=== PATIENT | male | born 1940 | race Two or more races ===

== ENCOUNTER 2018-05-14 06:01 | Inpatient (IN) | payer OTHER ==
[2018-05-14 06:12] VITALS: BMI 21.5
--- NOTE | 2018-05-14 07:06 | PDOC ---
History of Present Illness <Michaela Echeverria - Last Filed: 05/14/18 12:52> - History of Present Illness Initial Comments: 77yo M with PMH of COPD, HTN, HLD, DM presenting with lethargy. Per chart review , patient was brought in by ambulance. It is unknown from where or for what reason. Patient is able to follow simple commands and responds to questions, though his answers are difficult to understand. Not able to obtain history at this time due to patients lethargy. <Sabiha Rg - Last Filed: 05/14/18 19:14> - General Chief Complaint: CVA/TIA Stated Complaint: CHANGE IN MENTAL STATUS Time Seen by Provider: 05/14/18 07:04 NIH Stroke Scale - Last Known Well Date/Time & Onset Date Last Known Well: 05/13/18 Time Last Known Well: 07:00 - Initial Evaluation Level of consciousness: Alert Ask patient the month and their age: Answers one correctly Ask patient to open & close eyes; make fist and let go: Obeys one correctly Best gaze (horizontal eye movement): Normal Visual field testing: No visual field loss Facial paresis (Show teeth/raise eyebrows/close eyes tight): Minor paralysis ( flattened nasolabial fold, asymmetry on smiling) Motor Function: Left Arm: Drift Motor Function: Right Arm: Drift Motor Function: Left Leg: No effort against gravity Motor Function: Right Leg: Drift Limb Ataxia: Present in one limb Sensory(Use pinprick test arms,legs,trunk,face/side to side): Normal Best language (Describe picture, name items, read sentences): No Aphasia Dysarthria (read several words): Near unintelligible or unable to speak Extinction and Inattention: No abnormality - Total Score NIH Stroke Scale Score: 12 <Sabiha Rg - Last Filed: 05/14/18 19:14> Past History <Michaela Echeverria - Last Filed: 05/14/18 12:52> - Past Medical History Cardiac Disorders: Yes COPD: Yes Diabetes: Yes HTN: Yes Hypercholesterolemia: Yes Other medical history: ESRD - Surgical History Cardiac Surgery: Yes (PACEMAKER) - Suicide/Smoking/Psychosocial Hx Smoking History: Unknown if ever smoked <Sabiha Rg - Last Filed: 05/14/18 19:14> - Past Medical History Allergies/Adverse Reactions: Allergies Allergy/AdvReac Type Severity Reaction Status Date / Time iodine Allergy Verified 05/14/18 06:13 Review of Systems - Review of Systems Able to Perform ROS?: No <IfrahSabiha - Last Filed: 05/14/18 19:14> *Physical Exam - Vital Signs Last Vital Signs Temp Pulse Resp BP Pulse Ox 98.6 F 81 15 116/72 100 05/14/18 08:56 05/14/18 09:00 05/14/18 08:56 05/14/18 08:56 05/14/18 09:00 <Michaela Echeverria - Last Filed: 05/14/18 12:52> - Vital Signs Last Vital Signs Temp Pulse Resp BP Pulse Ox 84 18 121/36 L 89 L 05/14/18 06:09 05/14/18 06:09 05/14/18 06:09 05/14/18 06:09 - Physical Exam Comments: General: Awake, alert, and oriented x 2 (not to place) Head: no signs of trauma Eyes: EOMI, sclera anicteric ENT: Dry mucus membranes Neck: Normal ROM, supple Lungs: Lungs clear, Normal breath sounds Cardio: Regular rhythm, S1 and S2 present Abdomen: Soft, nontender. 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 Abnormal speech. Normal coordination, sensation; strength 4/5 in right leg, 2/5 in left leg <IfrahSabiha - Last Filed: 05/14/18 19:14> ED Treatment Course - LABORATORY CBC & Chemistry Diagram: 05/14/18 07:40 05/14/18 07:40 - ADDITIONAL ORDERS Additional order review: Laboratory Results 05/14/18 05/14/18 05/14/18 08:15 08:00 07:40 PT with INR INR Sodium Potassium Chloride Carbon Dioxide Anion Gap BUN Creatinine Creat Clearance w eGFR Random Glucose Lactic Acid 0.7 Calcium Total Bilirubin AST ALT Alkaline Phosphatase Creatine Kinase Troponin I Total Protein Albumin Triglycerides Cholesterol Total LDL Cholesterol HDL Cholesterol Urine Color Sharmila Urine Appearance Slcloudy Urine pH 5.0 Ur Specific [place] 1.015 Urine Protein 2+ H Urine Glucose (UA) Negative Urine Ketones Negative Urine Blood 1+ H Urine Nitrite Negative Urine Bilirubin Negative Urine Urobilinogen Negative Ur Leukocyte Esterase Negative Urine WBC (Auto) None Urine RBC (Auto) 13 Stool Occult Blood Positive Blood Type Antibody Screen 05/14/18 05/14/18 05/14/18 07:40 07:40 07:40 PT with INR 17.50 H INR 1.48 H Sodium 134 L Potassium 5.0 Chloride 96 L Carbon Dioxide 28 Anion Gap 9 BUN 66 H Creatinine 6.5 H Creat Clearance w eGFR 8.40 Random Glucose 102 Lactic Acid Calcium 9.3 Total Bilirubin 0.8 AST 13 L ALT 16 Alkaline Phosphatase 121 H Creatine Kinase 30 Troponin I 0.04 Total Protein 6.7 Albumin 2.7 L Triglycerides 54 Cholesterol 76 Total LDL Cholesterol 32 HDL Cholesterol 48 Urine Color Urine Appearance Urine pH Ur Specific [place] Urine Protein Urine Glucose (UA) Urine Ketones Urine Blood Urine Nitrite Urine Bilirubin Urine Urobilinogen Ur Leukocyte Esterase Urine WBC (Auto) Urine RBC (Auto) Stool Occult Blood Blood Type B POSITIVE Antibody Screen Negative 05/14/18 07:40 RBC 2.60 L MCV 96.5 H MCHC 32.1 RDW 24.1 H MPV 11.1 Neutrophils % 75.5 Lymphocytes % 10.7 Monocytes % 11.4 H Eosinophils % 1.8 Basophils % 0.6 <Michaela Echeverria - Last Filed: 05/14/18 12:52> - LABORATORY CBC & Chemistry Diagram: 05/14/18 07:40 05/14/18 07:40 <Sabiha Rg - Last Filed: 05/14/18 19:14> Medical Decision Making - Medical Decision Making 05/14/18 09:32 Dr. Melissa Wall was paged and notified via phone service. Dr. Melissa Wall was paged for update at 12:52. <Michaela Echeverria - Last Filed: 05/14/18 12:52> - Medical Decision Making 77yo M with PMH of COPD, HTN, HLD, DM presenting with lethargy. -Patient with lethargy vs altered mental status -DDX includes but not limited to hypoglycemia, sepsis, TIA/CVA, brain bleed, electrolyte abnormality -Labs -EKG -Head CT -BGM is 132 05/14/18 08:10 Collateral history provided by son-in-law. Patient had similar presentation in which he was less responsive about four weeks ago. He was brought to [facility] which performed a workup which was negative. Patient was dialyzed, improved, and was discharged. Since that time, patient was in dialysis when he went into cardiac arrest. He was sent again to [facility] and was found to have left sided weakness but MRI was not performed due to his pacemaker. Patient improved, however, had been unable to ambulate. Was sent to [facility] yesterday. Son-in-law reports that patient was appropriately interactive and appeared to be at his baseline with the exception of his inability to ambulate. Today, the patient was [facility] for less responsiveness. NIHSS is [address] does not show acute pathology EKG, rate 82, QTc 509, paced rhythm WBC=5.9, Hgb 8.1, FOBT positive Spoke with Dr. Wall who accepted patient for admission. Patient observed with low O2 saturation when removing the non-rebreather mask. Suspicion for PE as patient has had previous clots. However, patient has sensitivity to IV contrast. Dr. Milian discussed with Dr. Wall the option for V/Q scan versus premedicating for CTA with contrast. <Sabiha Rg - Last Filed: 05/14/18 19:14> *DC/Admit/Observation/Transfer <Michaela Echeverria - Last Filed: 05/14/18 12:52> - Discharge Dispostion Decision to Admit order: Yes <Sabiha Rg - Last Filed: 05/14/18 19:14> Diagnosis at time of Disposition: Altered mental status - Discharge Dispostion Condition at time of disposition: Guarded
[2018-05-14] MEDS ORDERED: SODIUM CHLORIDE 1,000 ML IV SCH (07:15)
[2018-05-14 08:02] LABS: BASO % 0.6 % (0-2.0); EOS % 1.8 % (0-4.5); HEMATOCRIT 25.1 % (35.4-49); HEMOGLOBIN 8.1 GM/dL (11.7-16.9); LYMPH % 10.7 % (8-40); MCH 30.9 pg (25.7-33.7); MCHC 32.1 g/dl (32.0-35.9); MEAN CELL VOLUME 96.5 fl (80-96); MEAN PLT VOLUME 11.1 fl (7.5-11.1); MONO % 11.4 % (3.8-10.2); NEUT % 75.5 % (42.8-82.8); PLATELET COUNT 137 K/MM3 (134-434); RDW 24.1 % (11.9-15.9); WHITE BLOOD COUNT 5.9 K/mm3 (4.0-10.0)
[2018-05-14 08:24] LABS: ALBUMIN 2.7 g/dl (3.4-5.0); ALK PHOS 121 U/L (45-117); ANION GAP 9 MMOL/L (8-16); BILIRUBIN,TOTAL 0.8 mg/dL (0.2-1); BLOOD UREA NITROGEN 66 mg/dL (7-18); CALCIUM 9.3 mg/dL (8.5-10.1); CHLORIDE 96 mmol/L (98-107); CHOLESTEROL 76 mg/dL (50-200); CO2 28 mmol/L (21-32); CREATININE 6.5 mg/dL (0.55-1.3); GLUCOSE,RANDOM 102 mg/dL (74-106); HDL CHOLESTEROL 48 mg/dL (40-60); SGOT/AST 13 U/L (15-37); SGPT/ALT 16 U/L (13-61); SODIUM 134 mmol/L (136-145); TOT PROT 6.7 g/dl (6.4-8.2); TRIGLYCERIDES 54 mg/dL (0-150)
[2018-05-14 08:30] LABS: INR 1.48 (0.83-1.09); PROTHROMBIN TIME (PATIENT) 17.5 SEC (9.7-13.0)
[2018-05-14 08:32] LABS: URINE APPEARANCE SLCLOUDY; URINE BILIRUBIN NEGATIVE (<2.0 mg/dL); URINE COLOR AMBER; URINE GLUCOSE (UA) NEGATIVE (NEGATIVE); URINE KETONE NEGATIVE (NEGATIVE); URINE LEUK ESTERASE NEGATIVE (NEGATIVE); URINE NITRITE NEGATIVE (NEGATIVE); URINE PROTEIN 2+ (NEGATIVE); URINE UROBILINOGEN NEGATIVE mg/dL (0.2-1.0)
--- NOTE | 2018-05-14 09:21 | EKG ---
Test Reason : Blood Pressure : / mmHG Vent. Rate : 082 BPM Atrial Rate : 082 BPM P-R Int : 256 ms QRS Dur : 180 ms QT Int : 436 ms P-R-T Axes : 047 -71 101 degrees QTc Int : 509 ms Atrial-sensed ventricular-paced rhythm with prolonged AV conduction ABNORMAL ECG NO PREVIOUS ECGS AVAILABLE Confirmed by JULIO DOMINGUEZ, ALTAF ([id number]) on 05/14/2018 9:21:12 AM Referred By: Confirmed By:ALTAF KIM MD
--- NOTE | 2018-05-14 10:13 | HP ---
Admitting History and Physical - Primary Care Physician PCP: Lynn Wall - Admission Chief Complaint: AMS History of Present Illness: History from ER resident and pt's son in law- Pt is in the ER , ventimask- sat 100% Pt was sent from [facility] this AM for lethargy He was just admitted to [facility] last night from [facility] in [place]--Diagnosis- CHF decompensation , SRD on HD As per son in law, pt has had about 2 recurrent admissions to the hospital for AMS- 5 weeks ago while in outpt dialysis, he lost consciousness and sent to ER - went into cardiac arrest - rescuscitated and was intubated, later extubated - discharged to [facility] in [place] , but had to be readmitted to the same hospital for SOB - this time had CHF decompensation , became decompensated and dc to [facility] . As per son in law-- PPM was interogated there in [facility] . He had CT scans which were negative though pt has a residual left sided weakness, could not do MRI as pt has a PPM . Pt examined in ER- he is speaking but not making much sense- he is usually AAO x 2 History Source: Family Member, Medical Record Limitations to Obtaining History: Physical Impairment - Past Medical History Cardiovascular: Yes: CAD, CHF, HTN, Other (CABG, PPM) Pulmonary: Yes: COPD Renal/: Yes: Renal Failure (ESRD on HD) - Smoking History Smoking history: Unknown if ever smoked Home Medications - Allergies Allergies/Adverse Reactions: Allergies Allergy/AdvReac Type Severity Reaction Status Date / Time iodine Allergy Hives Verified 05/15/18 13:08 - Home Medications Home Medications: Ambulatory Orders Albuterol 2.5/Ipratropium 0.5 [Duoneb -] 1 amp NEB PRN 05/15/18 Amlodipine Besylate 5 mg PO DAILY 05/15/18 Aspirin [ASA -] 81 mg PO DAILY 05/15/18 B Complex with Vitamin C [B-Complex Plus Vitamin C] 1 each PO DAILY 05/15/18 Calcitriol [Rocaltrol -] 0.25 mcg PO DAILY 05/15/18 Carvedilol [Coreg] 6.25 mg PO 05/15/18 Clopidogrel Bisulfate [Plavix] 75 mg PO 05/15/18 Darbepoetin Edin [Aranesp] 100 mcg SQ WEEKLY 05/15/18 Folic Acid 1 mg PO DAILY 05/15/18 Furosemide 100 mg PO BID 05/15/18 Guaifenesin 100 mg PO Q6H PRN 05/15/18 Insulin Glargine,Hum.rec.anlog [Lantus] 10 unit SQ HS 05/15/18 Insulin Lispro [Humalog] 3 unit SQ TIDCM 05/15/18 Isosorbide Mononitrate [Isosorbide Mononitrate ER] 30 mg PO 05/15/18 Pregabalin [Lyrica -] 100 mg PO 05/15/18 Ranolazine [Ranexa] 500 mg PO BID 05/15/18 Sevelamer Carbonate [Renvela] 800 mg PO 05/15/18 Simvastatin [Zocor -] 10 mg PO 05/15/18 Review of Systems Unable to obtain ROS, reason: drowsy Physical Examination Vital Signs: Vital Signs Temperature 98.6 F 05/14/18 08:56 Pulse Rate 81 05/14/18 09:00 Respiratory Rate 15 05/14/18 08:56 Blood Pressure 116/72 05/14/18 08:56 O2 Sat by Pulse Oximetry (%) 100 05/14/18 09:00 Constitutional: Yes: No Distress, Calm Cardiovascular: Yes: Regular Rate and Rhythm, Murmur Respiratory: Yes: Diminished Gastrointestinal: Yes: Normal Bowel Sounds, Soft. No: Tenderness Extremities: Yes: Other (skin tear left dorsum of foot, right foot- first 2 toes TMA) Edema: No Labs: CBC, BMP 05/14/18 07:40 05/14/18 07:40 Imaging - Results Chest X-ray: Image Reviewed (no congestion) Cat Scan: Report Reviewed (CT head negative) EKG: Image Reviewed (paced) Problem List - Problems (1) Hypoxia Code(s): R09.02 - HYPOXEMIA (2) ESRD (end stage renal disease) on dialysis Code(s): N18.6 - END STAGE RENAL DISEASE; Z99.2 - DEPENDENCE ON RENAL DIALYSIS (3) Altered mental status Code(s): R41.82 - ALTERED MENTAL STATUS, UNSPECIFIED Assessment/Plan PLAN Keep NPO Spoke with ER resident and attending-- will do CT chest - r/o PE will need dialysis afterwards Lactic acid normal apparently was on iv antibiotics on the previous hospital empirically renal and Neurology eval on NRB prognosis guarded ?seizure disorder ? PE ?infectious cause -- cultures drawn, no clear source
--- NOTE | 2018-05-14 11:13 | PDOC ---
Attending Attestation - Resident Resident Name: IfrahCatherineSabiha - ED Attending Attestation I have performed the following: I have examined & evaluated the patient, The case was reviewed & discussed with the resident, I agree w/resident's findings & plan, Exceptions are as noted - HPI HPI: 05/14/18 12:35 77 years old past medical history significant for end-stage renal disease on dialysis Friday COPD hypertension hyperlipidemia diabetes presents from [facility]. Patient has had a very complicated last 4 week. He was initially reported to [facility] for weakness after dialysis, symptoms seemed to improve he then began experiencing weakness again return to the hospital suffered a cardiac arrest, after becoming unresponsive at dialysis 2weeks later, had a 25 minute resuscitation. During this hospitalization he had left-sided weakness which has waxed and waned but has been present. CT was normal was unable to have an MRI performed secondary to pacemaker. He has been unable to walk over the last 4 weeks He was transferred yesterday [facility] for rehabilitation he was conversing yesterday with family week again on the left side which is not completely different than his new baseline over the last 4 weeks. - Physicial Exam PE: 05/14/18 12:39 Vitals: Triage Vital signs reviewed General Appearance: no acute distress, well nourished well developed, Head: Atraumatic, Eyes: Pupils equal reactive round, extraocular movement intact Lungs: Clear to auscultation bilateral, good air movement bilaterally, Abdomen: Soft, non distended, normal bowel sounds, non tender to palpation Extremities: Full range of motion to all extremities, no cyanosis, clubbing, or edema Skin: Ulcer to top of left foot Neuro: Responsd to questions, left arm 4/5, left leg 2/5. Psych: normal mood, normal affect - Medical Decision Making 05/14/18 12:[address] EKG all within normal limits Son-in-law at bedside this episode seems to be the exact same episode the patient has had twice in the last 4 weeks. No clear etiology at this point Given the patient is not his baseline mental status we'll admit to medicine for neurology and renal consultation and to arrange dialysis. Very low concern for infectious etiology given no fever no elevated white blood cell count Blood gas with evidence of hypoxemia, patient does desat when off O2. Chest x- ray with no acute pathology not wheezing at this time at this time given patient 's comorbidities PE is on the differential Patient does have a mild to moderate contrast ALLERGY has experienced wheezing in the past per the daughter. He has been able to obtain a CTA CT scans of his chest with premedication This is discussed with the admitting attending Dr. Engel. I have ordered a CTA and the first dose of by mouth prednisone for the overnight premedication process.
[2018-05-14 11:18] LABS: ARTERIAL BLD GAS O2 SATURATION 88.4 % (90-98.9); ARTERIAL BLOOD GAS BASE EXCESS 2.5 meq/l (-2-2); ARTERIAL BLOOD GAS PCO2 52.2 mmHg (35-45); ARTERIAL BLOOD GAS PO2 60.4 mmHg (70-100); ARTERIAL BLOOD GAS pH 7.35 (7.35-7.45)
[2018-05-14 11:19] LABS: CARBOXYHEMOGLOBIN 2.8 gm% (0.5-2.0)
[2018-05-14 11:24] LABS: ANISOCYTOSIS 3+; MACROCYTOSIS 2+; PLATELET ESTIMATE DECREASED
[2018-05-14] MEDS ORDERED: ALBUTEROL SO4 0.083% IH SOL 2.5 MG/3 ML VIAL.NEB. NEB PRN (12:34)
--- NOTE | 2018-05-14 15:44 | CONSULT ---
Consult Consult Specialty:: Nephrology Reason for Consultation:: ESRD - History of Present Illness Chief Complaint: lethargy History of Present Illness: Pt is a 77 year old male with pmhx of ESRD, CHF, cardiac arrest, CAD, CABG and PPM [facility]. He was sent to [facility] from [facility]. He did not get any HD in [facility] as he was sent to the hospital today. Pt is lethargic and unable to give history. I reviewed the chart and spoke to the medical attending. He has had several admissions for change in mental status. He has residual left sided weakness. - History Source History Provided By: Medical Record - Past Medical History Cardio/Vascular: Yes: CAD, CHF, HTN, Other (CABG, PPM) Pulmonary: Yes: COPD Renal/: Yes: Renal Failure (ESRD on HD), Hemodialysis - Smoking History Smoking history: Unknown if ever smoked Home Medications - Allergies Allergies/Adverse Reactions: Allergies Allergy/AdvReac Type Severity Reaction Status Date / Time iodine Allergy Verified 05/14/18 06:13 Family Disease History - Family Disease History Family History: Unable to Obtain Review of Systems Unable to obtain ROS, reason: pt lethargic Physical Exam Vital Signs: Vital Signs Temperature 98.6 F 05/14/18 08:56 Pulse Rate 78 05/14/18 14:07 Respiratory Rate 16 05/14/18 14:07 Blood Pressure 138/67 05/14/18 14:07 O2 Sat by Pulse Oximetry (%) 100 05/14/18 14:07 Constitutional: Yes: Calm Eyes: Yes: Conjunctiva Clear HENT: Yes: Atraumatic Cardiovascular: Yes: JVD, S1, S2 Respiratory: Yes: On Venti-Mask Gastrointestinal: Yes: Soft Renal/: Yes: Incontinence Musculoskeletal: Yes: Muscle Weakness Edema: No Neurological: Yes: Lethargy Labs: CBC, BMP 05/14/18 07:40 05/14/18 07:40 Imaging - Results Chest X-ray: Report Reviewed Cat Scan: Report Reviewed Problem List - Problems (1) Altered mental status Code(s): R41.82 - ALTERED MENTAL STATUS, UNSPECIFIED (2) ESRD (end stage renal disease) on dialysis Code(s): N18.6 - END STAGE RENAL DISEASE; Z99.2 - DEPENDENCE ON RENAL DIALYSIS Assessment/Plan Current Medications Generic Name Dose Route Start Last Admin Trade Name Freq PRN Reason Stop Dose Admin Albuterol Sulfate 1 amp 05/14/18 12:34 Ventolin 0.083% Nebulizer Soln - NEB Q4H PRN SHORT OF BREATH/WHEEZING Sodium Chloride 1,000 mls @ 42 mls/hr 05/14/18 07:15 05/14/18 08:23 Normal Saline - IV 42 mls/hr ASDIR KAVON Administration Prednisone 50 mg 05/15/18 13:11 Deltasone - PO 05/15/18 13:12 ONCE ONE Prednisone 50 mg 05/15/18 10:00 Deltasone - PO DAILY KAVON Impression 1. ESRD 2. hypoxia 3. CAD 4. hx of cardiac arrest 5. lethargy 6. DM 7. HLD 8. anemia Plan - will arrange for HD today - monitor pulse ox - d/s saline - discussed with medical team - monitor mental status with HD - monitor BP - will follow Dr Toth
[2018-05-14] MEDS ORDERED: SODIUM CHLORIDE 250 ML IV PRN (15:48)
[2018-05-14] MEDS: ALBUMIN HUMAN 25% 12.5 GM/50 ML VIAL IVPB SCH ×4 (17:00→18:30)
[2018-05-15 07:11] LABS: HEMATOCRIT 24.5 % (35.4-49); HEMOGLOBIN 7.6 GM/dL (11.7-16.9); MCH 30.1 pg (25.7-33.7); MEAN PLT VOLUME 10.5 fl (7.5-11.1); PLATELET COUNT 111 K/MM3 (134-434); RBC 2.52 M/mm3 (4.00-5.60); RDW 24.5 % (11.9-15.9); WHITE BLOOD COUNT 5.5 K/mm3 (4.0-10.0)
[2018-05-15 08:11] LABS: ALBUMIN 2.5 g/dl (3.4-5.0); ALK PHOS 96 U/L (45-117); ANION GAP 10 MMOL/L (8-16); BILIRUBIN,TOTAL 0.9 mg/dL (0.2-1); BLOOD UREA NITROGEN 41 mg/dL (7-18); CALCIUM 8.8 mg/dL (8.5-10.1); CHLORIDE 99 mmol/L (98-107); CO2 29 mmol/L (21-32); CREATININE 4.2 mg/dL (0.55-1.3); GLUCOSE,RANDOM 131 mg/dL (74-106); POTASSIUM 4.3 mmol/L (3.5-5.1); SGOT/AST 13 U/L (15-37); SGPT/ALT 15 U/L (13-61); SODIUM 139 mmol/L (136-145); TOT PROT 6.3 g/dl (6.4-8.2)
[2018-05-15] MEDS: predniSONE 20 MG TABLET (UD) PO SCH (09:57)
--- NOTE | 2018-05-15 11:33 | PN ---
Progress Note (short form) - Note Progress Note: pt seen/ examined chart reviewed family at bedside son in law/ Extensive talk with them pt awake/ comfortable denies cp. on vm chronic ill appearance Vital Signs Temp 98.2 F 05/15/18 05:55 Pulse 97 H 05/15/18 05:55 Resp 18 05/15/18 05:55 BP 127/67 05/15/18 06:00 Pulse Ox 95 05/14/18 21:00 Intake & Output 05/14/18 05/14/18 05/15/18 11:59 23:59 11:59 Weight 150 lb 150 lb Other: Voiding Method Toilet Diaper # Unmeasured Voids Void 1 Height 5 ft 10 in 5 ft 10 in Body Mass Index (BMI) 21.5 21.5 Weight Measurement Method Estimated by Staff Weight Measurement Method Estimated by Staff Active Medications Albuterol Sulfate (Ventolin 0.083% Nebulizer Soln -) 1 amp NEB Q4H PRN PRN Reason: SHORT OF BREATH/WHEEZING Prednisone (Deltasone -) 50 mg PO ONCE ONE Stop: 05/15/18 13:12 Prednisone (Deltasone -) 50 mg PO DAILY KAVON Last Admin: 05/15/18 09:57 Dose: Not Given CBC, BMP 05/15/18 05:55 05/15/18 05:55 ct head -- noted cta- pending Physical Exam. Awake/ Lethargic neck- supple Lungs- crackles at bases cvs- s1, s2 rrr abd - soft ext- No edema neuro- awake rue - weakness-- chronic as per family a/p sob. cad-- s/p cardiac arrest esrd Pneumona ? Sepsis-- No cultures send Doubt pe stool -- occult blood + Anemia Continue present care abx blood cultures pulmonary/ cardiolgoy / gi consults requested swallowing eval pt was eating puree / dysphagia diet at [facility] - as per family and before was ok I have still no list of meds pt takes -- Calling [facility] - called myself also and called few times by nursing staff to get list will follow overall condition critical cc time 35 min
--- NOTE | 2018-05-15 12:04 | CONSULT ---
Admitting History and Physical - Primary Care Physician PCP: Francheska Granados - Admission History of Present Illness: Per EMR: History from ER resident and pt's son in law- Pt is in the ER , ventimask- sat 100% Pt was sent from [facility] this AM for lethargy He was just admitted to [facility] last night from [facility] in [place]--Diagnosis- CHF decompensation , SRD on HD As per son in law, pt has had about 2 recurrent admissions to the hospital for AMS- 5 weeks ago while in outpt dialysis, he lost consciousness and sent to ER - went into cardiac arrest - rescuscitated and was intubated, later extubated - discharged to [facility] in [place] , but had to be readmitted to the same hospital for SOB - this time had CHF decompensation , became decompensated and dc to [facility] . As per son in law-- PPM was interogated there in [facility] . He had CT scans which were negative though pt has a residual left sided weakness, could not do MRI as pt has a PPM . Pt was on puree/nectar thick recently at [facility]. History Source: Family Member (info from staff who spoke with pt's son-in-law), Medical Record - Past Medical History Cardiovascular: Yes: CAD, CHF, HTN, Other (CABG, PPM) Pulmonary: Yes: COPD Renal/: Yes: Renal Failure (ESRD on HD), Hemodialysis - Smoking History Smoking history: Unknown if ever smoked History - Admission Reason For Visit: ALTERED MENTAL STATUS - Diagnostics X-ray: Report Reviewed CT Scan: Report Reviewed - General Mental Status: Awake and Alert (Thinks he is in [place]. Unable to retain orientation after 2 min with distraction.), Able to Follow Commands, Forgetful , Vague Attention: Intact Ability to Follow Directions: Fair (Benefits from repetition) Head/Neck Control: Fair - Hearing Hearing: Functional (impaired? Benefits from repetition) Speech Evaluation - Communication Primary Language: INDONESIAN Communication: Yes: Simple Responses - Speech Production Able to Make Needs Known: Yes: WNL Intelligibility: Yes: Mildly Impaired - Speech Characteristics Voice Loudness: Mildly Soft/Quiet Voice Pitch: Yes: Normal Voice Phonatory-based Quality: Yes: Normal Speech Clarity: < 100% Nasal Resonance: Normal Articulation: Yes: Precise - Language/Auditory Comprehension Follows: Yes: 1 Stage Simple Commands Observation: Yes/No Confusion: Yes (sometimes.[place]? Benefits from repetition), Benefits from Slow Speech: Yes, Benefits from Repetiton: Yes, Benefits from Increased Volume of Speech: Yes - Language/Verbal Expression Able to Respond to Simple Queries: Yes: Mildly Impaired Able to Communicate Wants and Needs: Yes: WNL Functional Communication Status: Yes: Mildly Impaired - Swallow Evaluation/Bedside Assessment Current Nutritional Intake: NPO Oral Secretions: Yes: WFL Facial Symmetry on Retraction: Symmetrical Facial Movement: Controlled Against Resistance Opening: Normal Against Resistance Closing: Normal Pucker Lips: Normal Lingual Movement: Normal, Symmetric Lingual Speed of Movement: Normal Lingual Movement Strgth Against Opposition: Normal Lingual Movement Characteristics: Normal Velopharyngeal Movement: Normal Laryngeal Movement: Able to Palpate, Labored,delay initiation Rate of Intake: WFL Bolus Size: Small Labial Seal: WFL Oral Prep Time: Increased A-P Transit: WFL Pocketing: None Timing of Swallow: Delayed Coughing/Throat Clear: No Change in Voice: No Recommendations - Speech Evaluation, Impression/Plan Impression: Delayed swallow onset but fairly brisk swallow once triggered. Possible cristine-pharyngeal dyscoordination with aspiration risk. Forgetful but verbal. Desaturation to 76 with O2 VM off for a few minutes. - Disposition Discharge to: [facility] - Dysphagia Impressions/Plan Dysphagia Impressions: Mild Impairment, Risk of Aspiration, Ongoing Evaluation *Silent aspiration: cannot be R/O at bedside Dysphagia Treatment Plan: Small Bites, Chin Tuck/Down, Clear Pocket Food, Trial Feedings, Safe Rate, 1/2 tsp. at a time, Elevate HOB during feed Recommendations: Modified Barium Swallow (if difficulty observed. Possibly mbs next week-I suspect diet can be upgraded as pt improves.) - Recommendations Diet Consistency: Dysphagia Pureed Medication Administration: Crushed with applesauce Liquids: [place] Thick Supplement: Magic Cup, Ensure Pudding
[2018-05-15] MEDS ORDERED: PANTOPRAZOLE SODIUM 40 MG VIAL IVPUSH SCH (12:15)
[2018-05-15] MEDS ORDERED: predniSONE 20 MG TABLET (UD) PO ONE ×2 (13:11→19:00)
--- NOTE | 2018-05-15 13:40 | CON.GI ---
Consult Consult Specialty:: GI Referred by:: Shawn Granados Reason for Consultation:: Anemia - History of Present Illness Chief Complaint: Anemia / guaiac positive stool History of Present Illness: 77M admitted to [facility] last night from [facility] in [place]-- Diagnosis- CHF decompensation, on HD. Per the schart, as the patient does no give an accurate history of his current medical condition, patient has had about 2 recurrent admissions for AMS - 5 weeks ago while in outpt dialysis, he lost consciousness and sent to ER -went into cardiac arrest - rescuscitated and was intubated, later extubated - discharged to [facility] in [place] , but had to be readmitted to the same hospital for SOB - this time had CHF decompensation , became decompensated. He was D/C'd to [facility]. His medication list lists asa and plavix. It does not appear that he receives GI prophylaxis. Also per the chart. As per the H&P, the patient's PPM was interogated at [facility] . He had CT scans which were negative though pt has a residual left sided weakness, could not do MRI as pt has a PPM . He has a macrocytosis, thrombocytopenia, coagulopathy. He denies a history of chronic liver disease. - Past Medical History Cardio/Vascular: Yes: CAD, CHF, HTN, Mitral Insufficiency, Other (CABG, PPM) Pulmonary: Yes: COPD Renal/: Yes: Renal Failure (ESRD on HD), Hemodialysis - Past Surgical History Past Surgical History: Yes: Amputation (right toe amputations), AV Fistula/ Graft (x 2. left arm non-functional), CABG, Permanent Pacemaker, Valve Replacement (TAVR) - Alcohol/Substance Use Hx Alcohol Use: Yes (social) History of Substance Use: reports: None - Smoking History Smoking history: Unknown if ever smoked - Social History Usual Living Arrangement: Fdc ADL: Support Services Place of : Other ([facility]) Home Medications - Allergies Allergies/Adverse Reactions: Allergies Allergy/AdvReac Type Severity Reaction Status Date / Time iodine Allergy Hives Verified 05/15/18 13:08 - Home Medications Home Medications: Ambulatory Orders Albuterol 2.5/Ipratropium 0.5 [Duoneb -] 1 amp NEB PRN 05/15/18 Amlodipine Besylate 5 mg PO DAILY 05/15/18 Aspirin [ASA -] 81 mg PO DAILY 05/15/18 B Complex with Vitamin C [B-Complex Plus Vitamin C] 1 each PO DAILY 05/15/18 Calcitriol [Rocaltrol -] 0.25 mcg PO DAILY 05/15/18 Carvedilol [Coreg] 6.25 mg PO 05/15/18 Clopidogrel Bisulfate [Plavix] 75 mg PO 05/15/18 Darbepoetin Edin [Aranesp] 100 mcg SQ WEEKLY 05/15/18 Folic Acid 1 mg PO DAILY 05/15/18 Furosemide 100 mg PO BID 05/15/18 Guaifenesin 100 mg PO Q6H PRN 05/15/18 Insulin Glargine,Hum.rec.anlog [Lantus] 10 unit SQ HS 05/15/18 Insulin Lispro [Humalog] 3 unit SQ TIDCM 05/15/18 Isosorbide Mononitrate [Isosorbide Mononitrate ER] 30 mg PO 05/15/18 Pregabalin [Lyrica -] 100 mg PO 05/15/18 Ranolazine [Ranexa] 500 mg PO BID 05/15/18 Sevelamer Carbonate [Renvela] 800 mg PO 05/15/18 Simvastatin [Zocor -] 10 mg PO 05/15/18 Family Disease History - Family Disease History Family History: Unable to Obtain Review of Systems - Review of Systems Neurological: reports: Confusion Physical Exam-GI Vital Signs: Vital Signs Temperature 99.5 Rectal F 05/15/18 13:31 Pulse Rate 97 H 05/15/18 05:55 Respiratory Rate 18 05/15/18 05:55 Blood Pressure 127/67 05/15/18 06:00 O2 Sat by Pulse Oximetry (%) 80% on RA 05/15/18 09:00 Eyes: No: Sclera Icterus Cardiovascular: Yes: Tachycardia, Murmur (+ 2/6 systolic murmur at thr RSB>LSB) Respiratory: Yes: Rhonchi (throughout lung guerrero bilaterally) Gastrointestinal Inspection: Yes: Other (ecchymoses, lower anterior abdominal wall). No: Distention ...Auscultate: Yes: Normoactive Bowel Sounds ...Palpate: No: Hepatomegaly, Splenomegaly, Tenderness ...Percussion: No: Tympanitic ...Rectal Exam: Yes: Other (Copious soft dark brown stool in the rectal vault, unable to be manually disimpacted duode to fecal consistency.) Edema: Yes Neurological: Yes: Alert (Awake, following commands) Labs: CBC, BMP 05/15/18 05:55 05/15/18 05:55 INR, PTT INR 1.48 (0.83-1.09) H 05/14/18 07:40 Hepatic Panel Total Bilirubin 0.9 mg/dL (0.2-1) 05/15/18 05:55 AST 13 U/L (15-37) L 05/15/18 05:55 ALT 15 U/L (13-61) 05/15/18 05:55 Alkaline Phosphatase 96 U/L (45-117) 05/15/18 05:55 Albumin 2.5 g/dl (3.4-5.0) L 05/15/18 05:55 Problem List - Problems (1) Anemia Assessment/Plan: Macrocytic anemia with multiple other comorbidities and [facility] Maintained on ASA/Plavix Currently being ruled out for PE Had discussion with His daughter Lilly. Discussed anemia. She explains that he received blood transfusions at [facility] [place] preiviously. Discussed findings of microscopic blood in stool. Discussed that when medically cleared, EGD and colonoscopy could be undertaken to evaluate intraluminal source of bleeding. We discussed potential risks of the procedures like but not limited to bleeding , perforation requiring surgery to repair, infection, sedation medication effects all of which could be potentially life threatening. She would think about these options and for now and defer endoscopic interventions for overt life threatening bleeding. We also dicsussed CT scan of the A/P with IV contrast to assess for changes c/w cirrhosis. PPI therapy ? if need for continiued dual antipletelet therapy necessary Monitor H/H and for signs of active GI bleeding. Code(s): D64.9 - ANEMIA, UNSPECIFIED
--- NOTE | 2018-05-15 13:46 | PN ---
Progress Note (short form) - Note Progress Note: PULMONARY CONSULTATION DICTATED 05/15/18 IMP ACUTE HYPOXEMIC/HYPERCAPNEIC RESPIRATORY FAILURE CHF ? PNEUMONIA ALTERED MENTAL STATUS ESRD ON HD H/O CARDIAC ARREST H/O COPD ASHD S/P CABG,S/P PPM HTN S/P TAVR PLAN O2 TO MAINTAIN O2 SAT >92% HD PER RENAL NIPPV IF PT DEVELOPES INCREASED RESPIRATORY DISTRESS/LETHARGY ABX CULTURES F/U CHEST X-RAYS CHEST CTA DR CRESPO Problem List - Problems (1) Altered mental status Code(s): R41.82 - ALTERED MENTAL STATUS, UNSPECIFIED (2) ESRD (end stage renal disease) on dialysis Code(s): N18.6 - END STAGE RENAL DISEASE; Z99.2 - DEPENDENCE ON RENAL DIALYSIS (3) ASHD (arteriosclerotic heart disease) Code(s): I25.10 - ATHSCL HEART DISEASE OF [place] CORONARY ARTERY W/O ANG PCTRS (4) Hypoxia Code(s): R09.02 - HYPOXEMIA (5) Hx of CABG Code(s): Z95.1 - PRESENCE OF AORTOCORONARY BYPASS GRAFT (6) Acute respiratory failure with hypoxia and hypercapnia Code(s): J96.01 - ACUTE RESPIRATORY FAILURE WITH HYPOXIA; J96.02 - ACUTE RESPIRATORY FAILURE WITH HYPERCAPNIA
--- NOTE | 2018-05-15 13:48 | ECHO ---
Name: MAURI RICKY Exam:Adult Echocardiogram Study Date: 05/15/2018 12:34 PM Age: 77 yrs Reason For Study: SOB Height: 70 in Weight: 150 lb BSA: 1.8 m2 MMode/2D Measurements & Calculations IVSd: 1.2 cm Ao root diam: 2.5 cm LVIDd: 4.3 cm LA dimension: 4.7 cm LVIDs: 2.8 cm LVPWd: 0.82 cm IVSs: 1.6 cm LVPWs: 1.2 cm EDV(Teich): 83.0 ml ESV(Teich): 28.8 ml LVOT diam: 1.9 cm Doppler Measurements & Calculations MV P1/2t max oswaldo: 266.0 cm/sec MVA(VTI): 0.92 cm2 MV P1/2t: 68.1 msec MV V2 max: 266.3 cm/sec MV max P.4 mmHg MVA(P1/2t): 3.2 cm2 MV V2 mean: 155.7 cm/sec MV dec slope: 1145 cm/sec2 MV mean P.2 mmHg MV V2 VTI: 46.4 cm Ao V2 max: 194.4 cm/sec LV V1 max P.6 mmHg Ao max P.1 mmHg LV V1 mean P.7 mmHg Ao V2 mean: 140.0 cm/sec LV V1 max: 80.5 cm/sec Ao mean P.6 mmHg LV V1 mean: 58.7 cm/sec Ao V2 VTI: 35.6 cm LV V1 VTI: 15.1 cm SETH(I,D): 1.2 cm2 SETH(V,D): 1.2 cm2 MR max oswaldo: 506.6 cm/sec SV(LVOT): 42.9 ml MR max P.8 mmHg TR max oswaldo: 319.6 cm/sec PI end-d oswaldo: 126.2 cm/sec TR max P.1 mmHg Left Ventricle Left ventricular systolic function is moderately reduced. Ejection Fraction = 35-40%. Septal motion i s consistent with conduction abnormality. There is apical septal wall severe hypokinesis. Right Ventricle The right ventricle is grossly normal size. The right ventricular systolic function is grossly normal . Atria The left atrium is moderately dilated. Mitral Valve Cannot exclude prior mitral valve repair/ring. There is moderate to severe mitral valve thickening. T here is moderate to severe mitral annular calcification. Calcified mitral apparatus. There is severe mitral s tenosis. There is mild mitral regurgitation. Tricuspid Valve The tricuspid valve is normal in structure and function. There is mild tricuspid regurgitation. Right ventricular systolic pressure is elevated at 30-40mmHg. Aortic Valve The aortic valve is not well visualized. No aortic regurgitation is present. Pulmonic Valve The pulmonic valve is not well seen, but is grossly normal. There is no pulmonic valvular stenosis. M ild pulmonic valvular regurgitation. Great Vessels The aortic root is normal size. Pericardium/Pleura There is no pericardial effusion. Interpretation Summary Septal motion is consistent with conduction abnormality. There is apical septal wall severe hypokinesis. Left ventricular systolic function is moderately reduced. Ejection Fraction = 35-40%. The left atrium is moderately dilated. Cannot exclude prior mitral valve repair/ring. There is moderate to severe mitral valve thickening. There is moderate to severe mitral annular calcification. Calcified mitral apparatus. There is mild mitral regurgitation. There is severe mitral stenosis. There is mild tricuspid regurgitation. Right ventricular systolic pressure is elevated at 30-40mmHg. The aortic valve is not well visualized. Mild pulmonic valvular regurgitation. There is no pericardial effusion. MD Mathew *Silva 05/15/2018 01:48 PM
--- NOTE | 2018-05-15 14:18 | CONS ---
DATE OF CONSULTATION: 05/15/2018 REFERRING PHYSICIAN: Francheska Granados MD The patient is a 77-year-old male with past medical history of end-stage renal disease on hemodialysis, COPD, hypertension, hyperlipidemia, diabetes, history of cardiac arrest, status post permanent pacemaker,s/p TAVR, transferred from [facility] secondary to increasing lethargy. Apparently while at [facility] he did not receive any hemodialysis. Patient on admission was noted to be lethargic. He was also noted to be hypoxic with blood gas revealing acute hypoxemic, hypercapnic respiratory failure. He underwent dialysis on admission. The patient has remained hypoxic on room air, requiring O2 via Ventimask. Patient is a nonsmoker. He denies any history of occupational exposures. Patient apparently has been very ill for the past 4 weeks. Apparently he was at [facility] secondary to weakness after dialysis and improved. Apparently he suffered a cardiac arrest after becoming unresponsive during dialysis 2 weeks after the initial admission. He apparently had a 25-minute resuscitation. He was left with a left-sided weakness. The patient apparently had a CT which was normal, and unable to have an MRI secondary to a pacemaker. Apparently for the past couple weeks he has been unable to walk. He was transferred from [facility] yesterday secondary to altered mental status. PAST MEDICAL HISTORY: Again includes COPD,s/p TAVR,end-stage renal disease on hemodialysis, CHF, cardiac arrest, ASHD status post CABG, status post permanent pacemaker, hypertension. REVIEW OF SYSTEMS: Unable to obtain at this time. CURRENT MEDICATIONS: Include prednisone, albuterol, and Protonix. PHYSICAL EXAMINATION: General: The patient is a thin male, awake. He was in no acute respiratory distress. Vital Signs: Current temperature is 99.1. O2 saturation is 99% on 35% Ventimask. Blood pressure is 128/67. Respiratory rate is 18. HEENT: Exam is normocephalic, atraumatic. Neck: Supple. Heart: Regular, S1, S2. Chest: Crackles bilaterally, right side greater than left, with few scattered rhonchi. Abdomen: Soft. Bowel sounds are positive. Extremities: No cyanosis or edema. LABORATORY: Blood gas: pH 7.35, PCO2 of 52, a PO2 of 60, bicarbonate of 28, a saturation of 88.4. WBCs 5.5, hemoglobin 7.6, hematocrit 26.5, with a platelet count of 111. INR is 1.48. BUN 41, creatinine 4.2. IMPRESSION: Acute hypercapneic, hypoxemic respiratory failure secondary to multiple factors. 1. Likely chronic congestive heart failure. 2. End-stage renal disease on hemodialysis. 3. chronic obstructive pulmonary disease. 4. Diabetes. 5. Possible underlying infectious process. 6. Pneumonia. 7. Cannot exclude possible pulmonary embolism. The patient has been relatively sedentary for the past 4 weeks. PLAN: Hemodialysis, antibiotics, supplemental O2, BiPAP if patient develops increasing respiratory distress or progressive lethargy. CTA of the chest, cultures, follow up chest x-rays. GIOVANI CRESPO M.D. [id number] MTDD
[2018-05-15 15:23] LABS: ARTERIAL BLD GAS O2 SATURATION 91.4 % (90-98.9); ARTERIAL BLOOD GAS BASE EXCESS 4.6 meq/l (-2-2); ARTERIAL BLOOD GAS PCO2 46.9 mmHg (35-45); ARTERIAL BLOOD GAS PO2 61.5 mmHg (70-100); ARTERIAL BLOOD GAS pH 7.41 (7.35-7.45)
[2018-05-15 15:25] LABS: ALLENS TEST POSITIVE
[2018-05-15] MEDS ORDERED: SODIUM CHLORIDE 250 ML IV PRN (15:31)
--- NOTE | 2018-05-15 15:31 | PN ---
Progress Note, Physician History of Present Illness: Pt seen and examined at bedside. He is much more awake and alert than he was yesterday. He is answering questions and appears more comfortable. - Current Medication List Current Medications: Active Medications Albuterol Sulfate (Ventolin 0.083% Nebulizer Soln -) 1 amp NEB Q4H PRN PRN Reason: SHORT OF BREATH/WHEEZING Pantoprazole Sodium (Protonix Iv) 40 mg IVPUSH BID KAVON Prednisone (Deltasone -) 50 mg PO DAILY KAVON Last Admin: 05/15/18 09:57 Dose: Not Given - Objective Vital Signs: Vital Signs Temperature 99.1 F 05/15/18 13:31 Pulse Rate 99 H 05/15/18 14:45 Respiratory Rate 18 05/15/18 14:45 Blood Pressure 125/68 05/15/18 14:45 O2 Sat by Pulse Oximetry (%) 99 05/15/18 09:00 Constitutional: Yes: Calm Eyes: Yes: Conjunctiva Clear Cardiovascular: Yes: S1, S2 Respiratory: Yes: On Venti-Mask Gastrointestinal: Yes: Soft Genitourinary: Yes: Incontinence Musculoskeletal: Yes: Muscle Weakness Edema: No Neurological: Yes: Oriented Labs: CBC, BMP 05/15/18 05:55 05/15/18 05:55 INR, PTT INR 1.48 (0.83-1.09) H 05/14/18 07:40 Problem List - Problems (1) Altered mental status Code(s): R41.82 - ALTERED MENTAL STATUS, UNSPECIFIED (2) ESRD (end stage renal disease) on dialysis Code(s): N18.6 - END STAGE RENAL DISEASE; Z99.2 - DEPENDENCE ON RENAL DIALYSIS Assessment/Plan Current Medications Generic Name Dose Route Start Last Admin Trade Name Freq PRN Reason Stop Dose Admin Albuterol Sulfate 1 amp 05/14/18 12:34 Ventolin 0.083% Nebulizer Soln - NEB Q4H PRN SHORT OF BREATH/WHEEZING Diphenhydramine HCl 50 mg 05/16/18 07:00 Benadryl - PO 05/16/18 07:01 ONCE ONE Pantoprazole Sodium 40 mg 05/15/18 22:00 Protonix Iv IVPUSH BID KAVON Prednisone 50 mg 05/15/18 10:00 05/15/18 09:57 Deltasone - PO Not Given DAILY KAVON Prednisone 50 mg 05/15/18 19:00 Deltasone - PO 05/15/18 19:01 ONCE ONE Prednisone 50 mg 05/16/18 02:00 Deltasone - PO 05/16/18 02:01 ONCE ONE Prednisone 50 mg 05/16/18 07:00 Deltasone - PO 05/16/18 07:01 ONCE ONE Impression 1. ESRD 2. hypoxia 3. CAD 4. hx of cardiac arrest 5. lethargy 6. DM 7. HLD 8. anemia Plan - pt tolerated HD last night - mental status is markedly improved - will arrange for HD again tomorrow after his ct scans - monitor pulse ox - monitor BP - monitor hg - will follow Dr Toth
--- NOTE | 2018-05-15 16:49 | CON.CARD ---
Consult Consult Specialty:: cardio - History of Present Illness History of Present Illness: 77 M sent from [facility] for lethargy pt poor historian, currently in and out of meaningful conversatoin though alert recently admitted to [facility] after complicated mult hospitalizations at outside hosp , details unclear. per report of pt son to Dr Wall: pt has had about 2 recurrent admissions to the hospital for AMS- 5 weeks ago while in outpt dialysis, he lost consciousness and sent to ER -went into cardiac arrest - rescuscitated and was intubated, later extubated - discharged to [facility] in [place]. had to be readmitted to the same hospital for SOB - this time had CHF decompensation , ultimatedly dc to [facility] . As per son in law-- PPM was interogated there in [facility]. He was noted to have L sided weakness which did not improved, reportedly head CTs unrevealing (no MRI as pt has a PPM). seen by pulm for ACUTE HYPOXEMIC/HYPERCAPNEIC RESPIRATORY FAILURE felt sec to chf and ? PNA dialyzed yest by renal pt denies any sob or cp. says he has a history of "heart transplant" on right side at [facility] 2 yrs ago but cannot give meaningful details and denies being on immunosuppresant meds OR FOLLOWING UP WITH ANY CARDIO, let alone transplant clinic. phone call to dtr: states no history of transplant s/p CABG 2013 (stents prior to that) s/p TAVR 2017 [facility] (cardio dr machado), pt following with him has PM, ? if defib she's not sure known CHF s/p cardiac arrest at [facility], required CPR 25 minutes--never fully recovered to baseline MSNydia was in the hospital being treated for aspiration PNA and she suspects he aspirated at time of the arrest. was having chest pain there--no stress test or cath done, cardio saw him there and did not feel there was active cardiac issue (dx'd metabolic event as cause of the arrest). was hyperkalemic there. was hypoxic there, had V/Q done with no PE dx. hgb low there--had 2 or 3 PRBC transfusions there PMH: ? CAD/prior CABG CHF--? details PPM ? recent cardiac arrest--? details ESRD on HD HTN COPD - Past Medical History Cardio/Vascular: Yes: CAD, CHF, HTN, Mitral Insufficiency, Other (CABG, PPM) Pulmonary: Yes: COPD Renal/: Yes: Renal Failure (ESRD on HD), Hemodialysis - Past Surgical History Past Surgical History: Yes: Amputation (right toe amputations), AV Fistula/ Graft (x 2. left arm non-functional), CABG, Permanent Pacemaker, Valve Replacement (TAVR) Additional Surgical History: TAVR - Alcohol/Substance Use Hx Alcohol Use: Yes (social) History of Substance Use: reports: None - Smoking History Smoking history: Unknown if ever smoked - Social History Usual Living Arrangement: Senior Living ADL: Support Services Home Medications - Allergies Allergies/Adverse Reactions: Allergies Allergy/AdvReac Type Severity Reaction Status Date / Time iodine Allergy Hives Verified 05/15/18 13:08 - Home Medications Home Medications: Ambulatory Orders Albuterol 2.5/Ipratropium 0.5 [Duoneb -] 1 amp NEB PRN 05/15/18 Amlodipine Besylate 5 mg PO DAILY 05/15/18 Aspirin [ASA -] 81 mg PO DAILY 05/15/18 B Complex with Vitamin C [B-Complex Plus Vitamin C] 1 each PO DAILY 05/15/18 Calcitriol [Rocaltrol -] 0.25 mcg PO DAILY 05/15/18 Carvedilol [Coreg] 6.25 mg PO 05/15/18 Clopidogrel Bisulfate [Plavix] 75 mg PO 05/15/18 Darbepoetin Edin [Aranesp] 100 mcg SQ WEEKLY 05/15/18 Folic Acid 1 mg PO DAILY 05/15/18 Furosemide 100 mg PO BID 05/15/18 Guaifenesin 100 mg PO Q6H PRN 05/15/18 Insulin Glargine,Hum.rec.anlog [Lantus] 10 unit SQ HS 05/15/18 Insulin Lispro [Humalog] 3 unit SQ TIDCM 05/15/18 Isosorbide Mononitrate [Isosorbide Mononitrate ER] 30 mg PO 05/15/18 Pregabalin [Lyrica -] 100 mg PO 05/15/18 Ranolazine [Ranexa] 500 mg PO BID 05/15/18 Sevelamer Carbonate [Renvela] 800 mg PO 05/15/18 Simvastatin [Zocor -] 10 mg PO 05/15/18 Family Disease History - Family Disease History Family History: Denies (no cmp) Review of Systems Unable to obtain ROS, reason: pt poor historian Vital Signs: Vital Signs Temperature 99.1 F 05/15/18 13:31 Pulse Rate 99 H 05/15/18 14:45 Respiratory Rate 18 05/15/18 14:45 Blood Pressure 125/68 05/15/18 14:45 O2 Sat by Pulse Oximetry (%) 99 05/15/18 09:00 Constitutional: Yes: Well Nourished, No Distress Eyes: No: Sclera Icterus HENT: No: Nasal Congestion Neck: No: Decreased ROM Respiratory: Yes: CTA Bilaterally, Rales (both bases). No: Accessory Muscle Use Gastrointestinal: Yes: Normal Bowel Sounds. No: Distention, Hepatomegaly, Palpable Mass, Tenderness Cardiovascular: Yes: Regular Rate and Rhythm JVD: Yes Carotid Bruit: No PMI: Non-Displaced Heart Sounds: Yes: S1, S2. No: Gallop Murmur: No: Systolic Murmur, Diastolic Murmur Musculoskeletal: Yes: Other (No kyphosis) Extremities: No: Cold, Cyanosis Edema: No Peripheral Pulses: 2+ Left Carotid, 2+ Right Carotid, 2+ Left Doralis Pedis, 2+ Right Dorsalis Pedis Integumentary: No: Jaundice Neurological: Yes: Lethargy. No: Oriented Psychiatric: No: Agitated - Other Data Labs, Other Data: CBC, BMP 05/15/18 05:55 05/15/18 05:55 INR, PTT INR 1.48 (0.83-1.09) H 05/14/18 07:40 Laboratory Tests 05/14/18 05/15/18 05/15/18 07:40 05:55 05:55 WBC 5.5 Hgb 7.6 L Plt Count 111 L Sodium 139 Potassium 4.3 Carbon Dioxide 29 BUN 41 H Creatinine 4.2 H AST 13 L ALT 15 Ammonia Troponin I 0.04 Triglycerides 54 Cholesterol 76 Total LDL Cholesterol 32 HDL Cholesterol 48 05/15/18 15:00 WBC Hgb Plt Count Sodium Potassium Carbon Dioxide BUN Creatinine AST ALT Ammonia 56.36 H Troponin I Triglycerides Cholesterol Total LDL Cholesterol HDL Cholesterol Assessment/Plan ECG: sinus, V-paced CXR x 2: no effusions. ? mild congestion Echo: mod reduced EF (35-40%). apical-septal severe HK, septal motion c/w conduction abnormality. nl RV. mod LAE. ? prior MV repair/annuloplasty ring, + thickened leaflets: severe mitral stenosis (tech mean gradient 12 mmHg), mild MR. mild TR. RVSP 30-40. CT head x 2 no acute pathology alt MS, lethargy: -recent admits to outside hosp for same. pt dtr states this is possibly unchanged from his BASELINE SINCE THE CARDIAC ARREST -ammonia elevated--? significance -per PMD acute hypoxemic resp failure: -not a new problem, felt to be due to chronic aspirations at outside hosp last month, with V/Q then negative. -pt with decreased EF and severe mitral stenosis--? CHF. CXR with reticulonodular infiltrates bilaterally, no effusions and elevated JVD c/w vol overload -at this point in time, low clinical suspicion for PE given objective findings of fluid overload and recent h/o aspirations and hypoxia unrelated to PE -therefore, would not rec CTA at this time--observe oxygenation after repeat HD tomorrow as fluid status improves. if clinical status deteriorates or fails to improve once volume is off, will reconsider CTA (has risks of anaphylaxis given h/o contrast true allergy). disc'd this plan with dtr (anju) who agrees with plan, and is herself worried about risks of contrast reaction -LE duplex ordered -vol mgmt per renal (HD) acute syst CHF, s/p TAVR (2017), mitral stenosis: -EF 35-40% -cxr with suspicion for mild CHF -volume mgmt with HD -cont home LV dysfunction med regimen (frederics jeannette at [facility]) -on DAPT though ? can be pared back now that > 6 mo post TAVR and no recent stents--continue same if tolerating, defer to outpt drop wire hanger CAD, reported h/o CABG: -nonspecific sx's (altered MS, lethargy) -ECG v-paced. trop #1 neg, will repeat now (ordered) -cont home meds HTN: -bp somewhat labile here, currently stable/controlled -cont home meds ESRD on HD: -per renal anemia: -hgb 7s-8s here, no prior baseline available -guaiac positive -recurrent H/H drops at outside hosp 04/14 req transfusions per dtr -cont plavix, monitor lab trend -GI on board--pt hi risk for scopes until acute issues resolve
--- NOTE | 2018-05-15 18:32 | PN ---
Progress Note (short form) - Note Progress Note: ID Consult dictated CHF ? HCAP Altered MS R/O toxic metabolic encephalopathy ESRD COPD S/P cardiopulmonary arrest Foot ulcers Await sepsis w/u Empiric zosyn/ vancomycin, adjusted for renal failure
--- NOTE | 2018-05-15 18:39 | CONSULT ---
Consult - text type - Consultation Consultation Note: NEUROLOGY CONSULTATION is greatly appreciated: This 77 yo RH man with complex PMH of HTN, ASHD, S/P stents and CABG, s/p PPM has ESRD- on HD. Multiple recent hospitalizations including decompensated CHF/anoxia requiring intubation/ventilation. Apparently developed left sided weakness during one of these hospitalizations attributed to stroke. Now admitted from [facility] at [place] for depressed LOC. LOC seems to have improved after HD. Initial CT of head (reviewed) suggested some right parietal white matter hypodensity but f/u CT neg for acute CVA. LOUIE: HD fistula. No bruits. No external head trauma. s/p toe amputations. Neck supple. Afebrile. NEURO: Confused. Denies he is in hospital. No month or year. + glabella Possible left visual field deficit. No facial. Gag OK Left drift. Left leg rests everted. Absent LE reflexes. Decreased vibration in feet. IMP: 1. Moderately severe, B/L cerebreal dysfunction (OMS, chronic features). 2. Right cerebral dysfunction c/w CVA. Apparently subacute, by history. 3. Worsening due to Toxic-Metabolic encephalopathy, probably multifactorial. SUGGEST: Continue HD, supportive care. Check B12, TSH, RPR R/O occult infection. Give thiamine 200 mg IVPB q 8 hrs x 3 days. Thank you very much, Bhupinder St MD
[2018-05-15] MEDS ORDERED: PIPERACILLIN/TAZOBACTAM 2.25 GM VIAL IVPB ONE (18:41)
[2018-05-15] MEDS ORDERED: DEXTROSE 5%-WATER - 50 ML IVPB ONE (18:42)
[2018-05-15] MEDS: PIPERACILLIN/TAZOB 2.25 GM 2.25 GM in DEXTROSE 5%-WATER - 50 ML IVPB SCH (18:48)
--- NOTE | 2018-05-15 18:58 | CONS ---
DATE OF CONSULTATION: DATE OF DICTATION: 05/15/2018 INFECTIOUS DISEASE CONSULTATION HISTORY OF PRESENT ILLNESS: The patient is a 77-year-old male who is evaluated for possible pneumonia. Consultation at the request of Dr. Aaron. History was obtained from the chart. He is a 77-year-old male who is admitted from halfway facility on May 14, 2018, with lethargy and altered mental status. He was brought in by ambulance. The patient was evaluated at [facility], where he was noted to have low-grade fever and dyspnea. Chest x-ray was performed and shows pulmonary vascular congestion. There is an elevated right hemidiaphragm. CAT scan of the head showed no acute process. His course was significant for low-grade fever. He is awake and alert. He has no focal complaint. He denies any chest pain or shortness of breath. He does appear to be slightly dyspneic at rest. Denies cough, sputum production, hemoptysis. Denies vomiting or diarrhea. Patient has had a complicated recent clinical course; approximately 4 weeks ago he was admitted to [facility] with altered mental status. He had presented with a similar presentation. According to the notes, workup was unrevealing. His course was complicated by a cardiopulmonary arrest, for which he was resuscitated. He was ultimately transferred to halfway facility for rehabilitation. According to the notes, he has residual left hemiparesis. PAST MEDICAL HISTORY: Positive for end-stage renal disease, hemodialysis, COPD, hypertension, hyperlipidemia, diabetes mellitus, questionable stroke. ALLERGIES: IODINE. MEDICATION: Include Protonix, Procrit, Benadryl, prednisone. SOCIAL HISTORY: He is presently residing in a halfway facility for rehabilitation. Unknown tobacco or alcohol use history. SYSTEMS REVIEW: Neurologic: As per HPI. Cardiac: Negative for chest pain or palpitations. Respiratory: As per HPI. Gastrointestinal: Negative vomiting or diarrhea. Genitourinary: End-stage renal disease on hemodialysis. LABORATORY DATA: White count 5.5, hematocrit 24.5, platelet count 111, BUN 41, creatinine 4.2. Urinalysis negative. Chest x-ray shows elevated right hemidiaphragm and congestion. PHYSICAL EXAMINATION: General: On exam, he is awake but lethargic, chronically ill appearing. Vital signs: Temperature 99.1, blood pressure 125/68, pulse 99 regular, respirations 18 per minute. HEENT: Sclerae anicteric. Cardiovascular: Heart sounds S1, S2. Lungs: Poor inspiratory effort. Decreased breath sounds bilaterally. Abdomen: Soft, distended, obese, no tenderness elicited. Ecchymotic area is present on the lower abdomen. Extremities: Negative for edema. He is status post amputation of toes on the right foot. He also has dry ulcerations present over the left second and third toes. IMPRESSION: 1. Congestive heart failure, possible healthcare required pneumonia. 2. Status post altered mental status to rule out toxic metabolic encephalopathy. 3. End-stage renal disease on hemodialysis. 4. Chronic obstructive pulmonary disease. 5. Status post cardiopulmonary arrest. In light of multiple comorbidities and recent hospitalizations, will empirically treat for possible healthcare required pneumonia with vancomycin and Zosyn adjusted for renal insufficiency. Await cultures. Pulmonary and cardiology followup. Thank you for the k indication referral. BETH WATSON M.D. [id number]
[2018-05-15] MEDS ORDERED: VANCOMYCIN 1 GRAM (PRE-DOCKED) 1,000 MG/250 ML BAG IVPB ONE (19:00)
[2018-05-15] MEDS: PANTOPRAZOLE SODIUM 40 MG VIAL IVPUSH SCH (21:44)
[2018-05-15] MEDS ORDERED: HEPARIN NA (PORCINE) 5,000 UNITS/ML 1ML VIAL SQ SCH (22:00)
[2018-05-16] MEDS ORDERED: PIPERACILLIN/TAZOBACTAM 2.25 GM VIAL IVPB ONE ×3 (01:10→16:43)
[2018-05-16] MEDS ORDERED: DEXTROSE 5%-WATER - 50 ML IVPB ONE ×3 (01:10→16:44)
[2018-05-16] MEDS: PIPERACILLIN/TAZOB 2.25 GM 2.25 GM in DEXTROSE 5%-WATER - 50 ML IVPB SCH ×3 (01:27→17:01)
[2018-05-16] MEDS ORDERED: predniSONE 20 MG TABLET (UD) PO ONE ×2 (02:00→07:00)
[2018-05-16] MEDS ORDERED: diphenhydrAMINE HCL 25 MG CAPSULE (FP) PO ONE (07:00)
[2018-05-16] MEDS ORDERED: EPOETIN ALFA 3,000 UNIT, EPOETIN ALFA 2,000 UNIT IVPUSH ONE (10:30)
[2018-05-16] MEDS: PANTOPRAZOLE SODIUM 40 MG VIAL IVPUSH SCH ×2 (10:50→21:37)
[2018-05-16] MEDS: predniSONE 20 MG TABLET (UD) PO SCH (10:55)
--- NOTE | 2018-05-16 11:23 | PN ---
Progress Note (short form) - Note Progress Note: s: no cp sob palps dizzy o: Vital Signs Period Temp Pulse Resp BP Sys/Adams Pulse Ox Last 24 Hr 97.9 F-99.2 F 90-99 18-20 125-158/63-86 93-93 Constitutional: Yes: Well Nourished, No Distress Eyes: No: Sclera Icterus HENT: No: Nasal Congestion Neck: No: Decreased ROM Respiratory: Yes: CTA Bilaterally, Rales (both bases). No: Accessory Muscle Use Gastrointestinal: Yes: Normal Bowel Sounds. No: Distention, Hepatomegaly, Palpable Mass, Tenderness Cardiovascular: Yes: Regular Rate and Rhythm JVD: Yes Heart Sounds: Yes: S1, S2. No: Gallop Murmur: No: Systolic Murmur, Diastolic Murmur Extremities: No: Cold, Cyanosis Edema: No Integumentary: No: Jaundice Neurological: Yes: Lethargy. No: Oriented Psychiatric: No: Agitated Current Medications Generic Name Dose Route Start Last Admin Trade Name Freq PRN Reason Stop Dose Admin Albuterol Sulfate 1 amp 05/14/18 12:34 Ventolin 0.083% Nebulizer Soln - NEB Q4H PRN SHORT OF BREATH/WHEEZING Sodium Chloride 250 mls @ 3,000 mls/hr 05/15/18 15:31 Normal Saline - IV 05/16/18 15:31 PRN PRN Hypotension during Dialysis Piperacillin Sod/Tazobactam 50 mls @ 100 mls/hr 05/15/18 18:30 05/16/18 10:50 Sod 2.25 gm/ Dextrose IVPB 100 mls/hr Q8H-IV KAVON Administration Protocol Pantoprazole Sodium 40 mg 05/15/18 22:00 05/16/18 10:50 Protonix Iv IVPUSH 40 mg BID KAVON Administration Prednisone 50 mg 05/15/18 10:00 05/16/18 10:55 Deltasone - PO 50 mg DAILY KAVON Administration CBC, BMP 05/15/18 05:55 05/15/18 05:55 Assessment/Plan ECG: sinus, V-paced CXR x 2: no effusions. ? mild congestion Echo: mod reduced EF (35-40%). apical-septal severe HK, septal motion c/w conduction abnormality. nl RV. mod LAE. ? prior MV repair/annuloplasty ring, + thickened leaflets: severe mitral stenosis (tech mean gradient 12 mmHg), mild MR. mild TR. RVSP 30-40. 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 pt dtr states this is possibly unchanged from his BASELINE SINCE THE CARDIAC ARREST -per PMD acute hypoxemic resp failure: -not a new problem, felt to be due to chronic aspirations at outside hosp last month, with V/Q then negative. -pt with decreased EF and severe mitral stenosis--? CHF. CXR with reticulonodular infiltrates bilaterally, no effusions and elevated JVD c/w vol overload -at this point in time, low clinical suspicion for PE given objective findings of fluid overload and recent h/o aspirations and hypoxia unrelated to PE -therefore, would not rec CTA at this time--observe oxygenation after repeat HD as fluid status improves. if clinical status deteriorates or fails to improve once volume is off, will reconsider CTA (has risks of anaphylaxis given h/o contrast true allergy). disc'd this plan with dtr (anju) who agrees with plan , and is herself worried about risks of contrast reaction -vol mgmt per renal (HD) acute syst CHF, s/p TAVR (2017), mitral stenosis: -EF 35-40% -cxr with suspicion for mild CHF -volume mgmt with HD -cont home LV dysfunction med regimen (sees jeannette at [facility]) -on DAPT though ? can be pared back now that > 6 mo post TAVR and no recent stents--continue same if tolerating, defer to outpt occ ther CAD, reported h/o CABG: -nonspecific sx's (altered MS, lethargy) -ECG v-paced. trop neg. -cont home meds HTN: -bp somewhat labile here, currently stable/controlled -cont home meds ESRD on HD: -per renal anemia: -hgb 7s-8s here, no prior baseline available -guaiac positive -recurrent H/H drops at outside hosp 04/14 req transfusions per dtr -cont plavix, monitor lab trend -GI on board--pt hi risk for scopes until acute issues resolve
[2018-05-16 12:30] LABS: HEMATOCRIT 24.9 % (35.4-49); HEMOGLOBIN 7.6 GM/dL (11.7-16.9); MCH 29.8 pg (25.7-33.7); MCHC 30.4 g/dl (32.0-35.9); MEAN CELL VOLUME 98.3 fl (80-96); MEAN PLT VOLUME 10.7 fl (7.5-11.1); PLATELET COUNT 119 K/MM3 (134-434); RBC 2.54 M/mm3 (4.00-5.60); RDW 24.1 % (11.9-15.9); WHITE BLOOD COUNT 3.9 K/mm3 (4.0-10.0)
[2018-05-16 12:57] LABS: ANION GAP 11 MMOL/L (8-16); BLOOD UREA NITROGEN 74 mg/dL (7-18); CALCIUM 9.4 mg/dL (8.5-10.1); CHLORIDE 97 mmol/L (98-107); CO2 27 mmol/L (21-32); CREATININE 6.4 mg/dL (0.55-1.3); POTASSIUM 5.3 mmol/L (3.5-5.1); SODIUM 135 mmol/L (136-145)
[2018-05-16] MEDS ORDERED: ALBUTEROL SO4 2.5/IPRATROPIUM 0.5 INH SOL 3 ML VIAL.NEB. NEB PRN (13:02)
--- NOTE | 2018-05-16 13:03 | PN ---
Progress Note (short form) - Note Progress Note: awake today and conversant undergoing HD feels well Vitals noted Laboratory Tests 05/16/18 05/16/18 10:20 10:20 WBC 3.9 L RBC 2.54 L Hgb 7.6 L Hct 24.9 L MCV 98.3 H MCHC 30.4 L RDW 24.1 H Plt Count 119 L Sodium 135 L Potassium 5.3 H Chloride 97 L Carbon Dioxide 27 Anion Gap 11 BUN 74 H Creatinine 6.4 H Creat Clearance w eGFR 8.55 Random Glucose 347 H* Calcium 9.4 S1 S2 RRR Lungs clear Abd- soft, NT No edema Skin tear at dorsum of left foot PLAN S/p volume overload AMS ESRD on HD Anemia -- cultures negative -- restart Plavix- will monitor H/HCT -- continue with meds Problem List - Problems (1) Hypoxia Code(s): R09.02 - HYPOXEMIA (2) ESRD (end stage renal disease) on dialysis Code(s): N18.6 - END STAGE RENAL DISEASE; Z99.2 - DEPENDENCE ON RENAL DIALYSIS (3) Altered mental status Code(s): R41.82 - ALTERED MENTAL STATUS, UNSPECIFIED
--- NOTE | 2018-05-16 13:09 | PN ---
Progress Note, Physician History of Present Illness: pulmonary more awake,-resp distress on dialysis - Current Medication List Current Medications: Active Medications Albuterol Sulfate (Ventolin 0.083% Nebulizer Soln -) 1 amp NEB Q4H PRN PRN Reason: SHORT OF BREATH/WHEEZING Albuterol/Ipratropium (Duoneb -) 1 amp NEB Q6H PRN PRN Reason: SHORTNESS OF BREATH Calcitriol (Rocaltrol -) 0.25 mcg PO DAILY [facility] Carvedilol (Coreg -) 6.25 mg PO BID KAVON Clopidogrel Bisulfate (Plavix -) 75 mg PO DAILY [facility] Sodium Chloride (Normal Saline -) 250 mls @ 3,000 mls/hr IV PRN PRN PRN Reason: Hypotension during Dialysis Stop: 05/16/18 15:31 Piperacillin Sod/Tazobactam (Sod 2.25 gm/ Dextrose) 50 mls @ 100 mls/hr IVPB Q8H-IV KAVON; Protocol Last Admin: 05/16/18 10:50 Dose: 100 mls/hr Isosorbide Mononitrate (Imdur -) 30 mg PO DAILY KAVON Pantoprazole Sodium (Protonix Iv) 40 mg IVPUSH BID KAVON Last Admin: 05/16/18 10:50 Dose: 40 mg Ranolazine (Ranexa -) 500 mg PO BID KAVON Sevelamer Carbonate (Renvela -) 800 mg PO TIDCM [facility] - Objective Vital Signs: Vital Signs Temperature 99.1 F 05/16/18 08:54 Pulse Rate 93 H 05/16/18 11:35 Respiratory Rate 18 05/16/18 11:35 Blood Pressure 181/59 H 05/16/18 11:35 O2 Sat by Pulse Oximetry (%) 93 L 05/16/18 07:55 Constitutional: Yes: Well Nourished, Calm Eyes: Yes: WNL HENT: Yes: WNL Neck: Yes: WNL Cardiovascular: Yes: Regular Rate and Rhythm, S1, S2 Respiratory: Yes: Rales (bibasilar rales) Gastrointestinal: Yes: Normal Bowel Sounds, Soft Extremities: Yes: WNL Edema: No Labs: CBC, BMP 05/16/18 10:20 05/16/18 10:20 INR, PTT INR 1.48 (0.83-1.09) H 05/14/18 07:40 Problem List - Problems (1) Altered mental status Code(s): R41.82 - ALTERED MENTAL STATUS, UNSPECIFIED (2) ESRD (end stage renal disease) on dialysis Code(s): N18.6 - END STAGE RENAL DISEASE; Z99.2 - DEPENDENCE ON RENAL DIALYSIS (3) ASHD (arteriosclerotic heart disease) Code(s): I25.10 - ATHSCL HEART DISEASE OF [place] CORONARY ARTERY W/O ANG PCTRS (4) Hypoxia Code(s): R09.02 - HYPOXEMIA (5) Hx of CABG Code(s): Z95.1 - PRESENCE OF AORTOCORONARY BYPASS GRAFT (6) Acute respiratory failure with hypoxia and hypercapnia Code(s): J96.01 - ACUTE RESPIRATORY FAILURE WITH HYPOXIA; J96.02 - ACUTE RESPIRATORY FAILURE WITH HYPERCAPNIA Assessment/Plan IMP ACUTE HYPOXEMIC/HYPERCAPNEIC RESPIRATORY FAILURE CHF ? PNEUMONIA ALTERED MENTAL STATUS ESRD ON HD H/O CARDIAC ARREST H/O COPD ASHD S/P CABG,S/P PPM HTN S/P TAVR PLAN O2 TO MAINTAIN O2 SAT >92% HD PER RENAL NIPPV IF PT DEVELOPES INCREASED RESPIRATORY DISTRESS/LETHARGY ABX S PER ID F/U CHEST X-RAYS CHEST CTA PENDING DR CRESPO Problem List - Problems (1) Altered mental status Code(s): R41.82 - ALTERED MENTAL STATUS, UNSPECIFIED (2) ESRD (end stage renal disease) on dialysis Code(s): N18.6 - END STAGE RENAL DISEASE; Z99.2 - DEPENDENCE ON RENAL DIALYSIS (3) ASHD (arteriosclerotic heart disease) Code(s): I25.10 - ATHSCL HEART DISEASE OF [place] CORONARY ARTERY W/O ANG PCTRS (4) Hypoxia Code(s): R09.02 - HYPOXEMIA (5) Hx of CABG Code(s): Z95.1 - PRESENCE OF AORTOCORONARY BYPASS GRAFT (6) Acute respiratory failure with hypoxia and hypercapnia Code(s): J96.01 - ACUTE RESPIRATORY FAILURE WITH HYPOXIA; J96.02 - ACUTE RESPIRATORY FAILURE WITH HYPERCAPNIA
[2018-05-16 13:11] LABS: GLUCOSE,RANDOM 347 mg/dL (74-106)
[2018-05-16] MEDS ORDERED: EPOETIN ALFA 3,000 UNIT/1 ML ML IVPUSH ONE (15:31)
--- NOTE | 2018-05-16 15:31 | PN ---
GI Progress Note Subjective: No overt bleeding reported CT A/P pe - Objective Vital Signs: Vital Signs Temperature 99.1 F 05/16/18 08:54 Pulse Rate 102 H 05/16/18 14:35 Respiratory Rate 18 05/16/18 14:35 Blood Pressure 168/83 05/16/18 14:35 O2 Sat by Pulse Oximetry (%) 93 L 05/16/18 07:55 Constitutional: Calm Eyes: No: Sclera Icterus Cardiovascular: Yes: Tachycardia Respiratory: Yes: Rhonchi Gastrointestinal Inspection: No: Distention ...Auscultate: Yes: Normoactive Bowel Sounds ...Palpate: No: Hepatomegaly, Splenomegaly, Tenderness Edema: No (No LE edema) Neurological: Yes: Alert, Oriented (x person, partially to place, time) Labs: CBC, BMP 05/16/18 10:20 05/16/18 10:20 INR, PTT INR 1.48 (0.83-1.09) H 05/14/18 07:40 Laboratory Tests 05/15/18 15:00 Ammonia 56.36 H - ....Imaging Cat Scan: Report Reviewed (dilated superficial veins, normal sized spleen, heterogeneous liver), Image Reviewed Problem List - Problems (1) Anemia Assessment/Plan: No overt bleeding Maintained on plavix by cardiology On PPI Deferring endoscopic evaluations at this time Add Lactulose 30g daily Code(s): D64.9 - ANEMIA, UNSPECIFIED
[2018-05-16] MEDS: INSULIN SLIDING SCALE (NOVOLOG) 1 VIAL SQ SCH (16:54)
[2018-05-16] MEDS: LACTULOSE 20 GM/30 ML UDC (FOR ORAL USE ONLY) PO SCH (16:54)
[2018-05-16] MEDS: SEVELAMER CARBONATE 800 MG TAB (FP) PO SCH (16:55)
--- NOTE | 2018-05-16 20:07 | PN ---
Progress Note (short form) - Note Progress Note: Impression 1. ESRD 2. hypoxia 3. CAD 4. hx of cardiac arrest 5. lethargy 6. DM 7. HLD 8. anemia Current Medications Albuterol Sulfate (Ventolin 0.083% Nebulizer Soln -) 1 amp NEB Q4H PRN PRN Reason: SHORT OF BREATH/WHEEZING Albuterol/Ipratropium (Duoneb -) 1 amp NEB Q6H PRN PRN Reason: SHORTNESS OF BREATH Calcitriol (Rocaltrol -) 0.25 mcg PO DAILY [facility] Carvedilol (Coreg -) 6.25 mg PO BID [facility] Clopidogrel Bisulfate (Plavix -) 75 mg PO DAILY [facility] Piperacillin Sod/Tazobactam (Sod 2.25 gm/ Dextrose) 50 mls @ 100 mls/hr IVPB Q8H-IV KAVON; Protocol Last Admin: 05/16/18 17:01 Dose: 100 mls/hr Insulin Aspart (Novolog Vial Sliding Scale -) 1 vial SQ TIDAC [facility]; Protocol Last Admin: 05/16/18 16:54 Dose: 2 units Insulin Detemir (Levemir Vial) 10 units SQ HS [facility] Isosorbide Mononitrate (Imdur -) 30 mg PO DAILY [facility] Lactulose (Cephulac (Oral Use)) 30 gm PO DAILY [facility] Last Admin: 05/16/18 16:54 Dose: 30 gm Pantoprazole Sodium (Protonix Iv) 40 mg IVPUSH BID [facility] Last Admin: 05/16/18 10:50 Dose: 40 mg Ranolazine (Ranexa -) 500 mg PO BID [facility] Sevelamer Carbonate (Renvela -) 800 mg PO TIDCM [facility] Last Admin: 05/16/18 16:55 Dose: 800 mg Last Vital Signs Temp Pulse Resp BP Pulse Ox 99.1 F 100 H 18 162/67 93 L 05/16/18 08:54 05/16/18 15:28 05/16/18 15:28 05/16/18 15:28 05/16/18 07:55 CBC, BMP 05/16/18 10:20 05/16/18 10:20 Plan - pt tolerated HD last night - mental status is markedly improved - will arrange for HD again tomorrow after his ct scans - monitor pulse ox - monitor BP - monitor hg - will follow
[2018-05-16] MEDS: INSULIN (LEVEMIR) 100 UNITS/ML UNITS SQ SCH (21:35)
[2018-05-16] MEDS: CARVEDILOL 6.25 MG TABLET (FP) PO SCH (21:37)
[2018-05-16] MEDS: RANOLAZINE E.R. 500 MG TABLET (FP) PO SCH (21:37)
[2018-05-17] MEDS ORDERED: PIPERACILLIN/TAZOBACTAM 2.25 GM VIAL IVPB ONE ×2 (01:06→09:38)
[2018-05-17] MEDS ORDERED: DEXTROSE 5%-WATER - 50 ML IVPB ONE ×2 (01:07→09:38)
[2018-05-17] MEDS: PIPERACILLIN/TAZOB 2.25 GM 2.25 GM in DEXTROSE 5%-WATER - 50 ML IVPB SCH ×2 (01:13→09:54)
[2018-05-17] MEDS: INSULIN SLIDING SCALE (NOVOLOG) 1 VIAL SQ SCH ×3 (06:10→17:21)
[2018-05-17 06:36] LABS: HBSAG SCREEN Negative (Negative); HEP A AB, IGM Negative (Negative); HEP B CORE AB, TOT Negative (Negative)
[2018-05-17] MEDS: LACTULOSE 20 GM/30 ML UDC (FOR ORAL USE ONLY) PO SCH (09:54)
[2018-05-17] MEDS: RANOLAZINE E.R. 500 MG TABLET (FP) PO SCH ×2 (09:56→22:11)
[2018-05-17] MEDS: SEVELAMER CARBONATE 800 MG TAB (FP) PO SCH ×3 (09:56→17:21)
[2018-05-17] MEDS: ISOSORBIDE MONONITRATE 30 MG TAB.SR.24H (FP) PO SCH (09:57)
[2018-05-17] MEDS: PANTOPRAZOLE SODIUM 40 MG VIAL IVPUSH SCH ×2 (09:57→22:11)
[2018-05-17] MEDS: CARVEDILOL 6.25 MG TABLET (FP) PO SCH ×2 (09:57→22:11)
[2018-05-17] MEDS: CALCITRIOL 0.25 MCG CAPSULE (FP) PO SCH (09:57)
[2018-05-17] MEDS ORDERED: CLOPIDOGREL BISULFATE 75 MG TABLET (FP) PO SCH (10:00)
--- NOTE | 2018-05-17 10:36 | PN ---
Progress Note (short form) - Note Progress Note: s: no cp sob palps dizzy o: Vital Signs Period Temp Pulse Resp BP Sys/Adams Pulse Ox Last 24 Hr 97.8 F-98.9 F 92-103 18-20 106-183/48-97 96-96 Constitutional: Yes: Well Nourished, No Distress Eyes: No: Sclera Icterus HENT: No: Nasal Congestion Neck: No: Decreased ROM Respiratory: Yes: CTA Bilaterally, Rales (both bases). No: Accessory Muscle Use Gastrointestinal: Yes: Normal Bowel Sounds. No: Distention, Hepatomegaly, Palpable Mass, Tenderness Cardiovascular: Yes: Regular Rate and Rhythm JVD: Yes Heart Sounds: Yes: S1, S2. No: Gallop Murmur: No: Systolic Murmur, Diastolic Murmur Extremities: No: Cold, Cyanosis Edema: No Integumentary: No: Jaundice Neurological: Yes: Lethargy. No: Oriented Psychiatric: No: Agitated Current Medications Generic Name Dose Route Start Last Admin Trade Name Freq PRN Reason Stop Dose Admin Albuterol Sulfate 1 amp 05/14/18 12:34 Ventolin 0.083% Nebulizer Soln - NEB Q4H PRN SHORT OF BREATH/WHEEZING Albuterol/Ipratropium 1 amp 05/16/18 13:02 Duoneb - NEB Q6H PRN SHORTNESS OF BREATH Calcitriol 0.25 mcg 05/17/18 10:00 05/17/18 09:57 Rocaltrol - PO 0.25 mcg DAILY [facility]ON Administration Carvedilol 6.25 mg 05/16/18 22:00 05/17/18 09:57 Coreg - PO 6.25 mg BID KAVON Administration Clopidogrel Bisulfate 75 mg 05/17/18 10:00 05/17/18 09:56 Plavix - PO 75 mg DAILY [facility]ON Administration Piperacillin Sod/Tazobactam 50 mls @ 100 mls/hr 05/15/18 18:30 05/17/18 09:54 Sod 2.25 gm/ Dextrose IVPB 100 mls/hr Q8H-IV KAVON Administration Protocol Insulin Aspart 1 vial 05/16/18 16:30 05/17/18 06:10 Novolog Vial Sliding Scale - SQ 6 units TIDAC KAVON Administration Protocol Insulin Detemir 10 units 05/16/18 22:00 05/16/18 21:35 Levemir Vial SQ 10 units HS KAVON Administration Isosorbide Mononitrate 30 mg 05/17/18 10:00 05/17/18 09:57 Imdur - PO 30 mg DAILY [facility]ON Administration Lactulose 30 gm 05/16/18 15:45 05/17/18 09:54 Cephulac (Oral Use) PO 30 gm DAILY [facility]ON Administration Pantoprazole Sodium 40 mg 05/15/18 22:00 05/17/18 09:57 Protonix Iv IVPUSH 40 mg BID KAVON Administration Ranolazine 500 mg 05/16/18 22:00 05/17/18 09:56 Ranexa - PO 500 mg BID [facility]ON Administration Sevelamer Carbonate 800 mg 05/16/18 17:30 05/17/18 09:56 Renvela - PO 800 mg TIDCM [facility]ON Administration CBC, BMP 05/16/18 10:20 05/16/18 10:20 Assessment/Plan ECG: sinus, V-paced CXR x 2: no effusions. ? mild congestion Echo: mod reduced EF (35-40%). apical-septal severe HK, septal motion c/w conduction abnormality. nl RV. mod LAE. ? prior MV repair/annuloplasty ring, + thickened leaflets: severe mitral stenosis (tech mean gradient 12 mmHg), mild MR. mild TR. RVSP 30-40. 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 pt dtr states this is possibly unchanged from his BASELINE SINCE THE CARDIAC ARREST -per PMD acute hypoxemic resp failure: -not a new problem, felt to be due to chronic aspirations at outside hosp last month, with V/Q then negative. -pt with decreased EF and severe mitral stenosis--? CHF. CXR with reticulonodular infiltrates bilaterally, no effusions and elevated JVD c/w vol overload -at this point in time, low clinical suspicion for PE given objective findings of fluid overload and recent h/o aspirations and hypoxia unrelated to PE -therefore, would not rec CTA at this time--observe oxygenation after repeat HD as fluid status improves. if clinical status deteriorates or fails to improve once volume is off, will reconsider CTA (has risks of anaphylaxis given h/o contrast true allergy). disc'd this plan with dtr (anju) who agrees with plan , and is herself worried about risks of contrast reaction -vol mgmt per renal (HD) acute syst CHF, s/p TAVR (2017), mitral stenosis: -EF 35-40% -cxr with suspicion for mild CHF -volume mgmt with HD -cont home LV dysfunction med regimen (frederics jeannette at [facility]) -on DAPT though ? 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 trop neg. -cont home meds HTN: -bp somewhat labile here, currently stable/controlled -cont home meds ESRD on HD: -per renal anemia: -hgb 7s-8s here, no prior baseline available -guaiac positive -recurrent H/H drops at outside hosp 04/14 req transfusions per dtr -cont plavix, monitor lab trend -GI on board--pt hi risk for scopes until acute issues resolve
--- NOTE | 2018-05-17 11:31 | PN ---
Progress Note, Physician History of Present Illness: PULMONARY SLEEPY,-RESP DISTRESS,AGITATED DURING THE NIGHT. - Current Medication List Current Medications: Active Medications Albuterol Sulfate (Ventolin 0.083% Nebulizer Soln -) 1 amp NEB Q4H PRN PRN Reason: SHORT OF BREATH/WHEEZING Albuterol/Ipratropium (Duoneb -) 1 amp NEB Q6H PRN PRN Reason: SHORTNESS OF BREATH Calcitriol (Rocaltrol -) 0.25 mcg PO DAILY [facility] Last Admin: 05/17/18 09:57 Dose: 0.25 mcg Carvedilol (Coreg -) 6.25 mg PO BID [facility] Last Admin: 05/17/18 09:57 Dose: 6.25 mg Clopidogrel Bisulfate (Plavix -) 75 mg PO DAILY [facility] Last Admin: 05/17/18 09:56 Dose: 75 mg Piperacillin Sod/Tazobactam (Sod 2.25 gm/ Dextrose) 50 mls @ 100 mls/hr IVPB Q8H-IV [facility]; Protocol Last Admin: 05/17/18 09:54 Dose: 100 mls/hr Insulin Aspart (Novolog Vial Sliding Scale -) 1 vial SQ TIDAC [facility]; Protocol Last Admin: 05/17/18 06:10 Dose: 6 units Insulin Detemir (Levemir Vial) 10 units SQ HS [facility] Last Admin: 05/16/18 21:35 Dose: 10 units Isosorbide Mononitrate (Imdur -) 30 mg PO DAILY [facility] Last Admin: 05/17/18 09:57 Dose: 30 mg Lactulose (Cephulac (Oral Use)) 30 gm PO DAILY [facility] Last Admin: 05/17/18 09:54 Dose: 30 gm Pantoprazole Sodium (Protonix Iv) 40 mg IVPUSH BID [facility] Last Admin: 05/17/18 09:57 Dose: 40 mg Ranolazine (Ranexa -) 500 mg PO BID [facility] Last Admin: 05/17/18 09:56 Dose: 500 mg Sevelamer Carbonate (Renvela -) 800 mg PO TIDCM [facility] Last Admin: 05/17/18 09:56 Dose: 800 mg - Objective Vital Signs: Vital Signs Temperature 98.7 F 05/17/18 10:05 Pulse Rate 94 H 05/17/18 10:05 Respiratory Rate 18 05/17/18 10:05 Blood Pressure 141/75 05/17/18 10:05 O2 Sat by Pulse Oximetry (%) 96 05/17/18 07:49 Constitutional: Yes: Thin, Other (SLEEPY) Eyes: Yes: WNL HENT: Yes: WNL Neck: Yes: WNL Cardiovascular: Yes: Regular Rate and Rhythm, S1, S2 Respiratory: Yes: Diminished (POOR INSPIRATORY EFFORT), Rales (BIBASILAR RALES) Gastrointestinal: Yes: Normal Bowel Sounds, Soft Extremities: Yes: WNL Edema: No Labs: CBC, BMP 05/16/18 10:20 05/16/18 10:20 INR, PTT INR 1.48 (0.83-1.09) H 05/14/18 07:40 Problem List - Problems (1) Altered mental status Code(s): R41.82 - ALTERED MENTAL STATUS, UNSPECIFIED (2) ESRD (end stage renal disease) on dialysis Code(s): N18.6 - END STAGE RENAL DISEASE; Z99.2 - DEPENDENCE ON RENAL DIALYSIS (3) ASHD (arteriosclerotic heart disease) Code(s): I25.10 - ATHSCL HEART DISEASE OF [place] CORONARY ARTERY W/O ANG PCTRS (4) Hypoxia Code(s): R09.02 - HYPOXEMIA (5) Hx of CABG Code(s): Z95.1 - PRESENCE OF AORTOCORONARY BYPASS GRAFT (6) Acute respiratory failure with hypoxia and hypercapnia Code(s): J96.01 - ACUTE RESPIRATORY FAILURE WITH HYPOXIA; J96.02 - ACUTE RESPIRATORY FAILURE WITH HYPERCAPNIA Assessment/Plan IMP ACUTE HYPOXEMIC/HYPERCAPNEIC RESPIRATORY FAILURE IMPROVING CHF ? PNEUMONIA ALTERED MENTAL STATUS ESRD ON HD H/O CARDIAC ARREST H/O COPD ASHD S/P CABG,S/P PPM HTN S/P TAVR ANEMIA PLAN O2 TO MAINTAIN O2 SAT >92% HD PER RENAL NIPPV IF PT DEVELOPES INCREASED RESPIRATORY DISTRESS/LETHARGY ABX S PER ID F/U CHEST X-RAYS DR CRESPO Problem List - Problems (1) Altered mental status Code(s): R41.82 - ALTERED MENTAL STATUS, UNSPECIFIED (2) ESRD (end stage renal disease) on dialysis Code(s): N18.6 - END STAGE RENAL DISEASE; Z99.2 - DEPENDENCE ON RENAL DIALYSIS (3) ASHD (arteriosclerotic heart disease) Code(s): I25.10 - ATHSCL HEART DISEASE OF [place] CORONARY ARTERY W/O ANG PCTRS (4) Hypoxia Code(s): R09.02 - HYPOXEMIA (5) Hx of CABG Code(s): Z95.1 - PRESENCE OF AORTOCORONARY BYPASS GRAFT (6) Acute respiratory failure with hypoxia and hypercapnia Code(s): J96.01 - ACUTE RESPIRATORY FAILURE WITH HYPOXIA; J96.02 - ACUTE RESPIRATORY FAILURE WITH HYPERCAPNIA
--- NOTE | 2018-05-17 12:44 | PN ---
Progress Note (short form) - Note Progress Note: Was awake yesterday and conversant Last night could not sleep , was trying to get OOB He is sleepy today daughter at bedside Vital Signs - 24 hr 05/16/18 05/16/18 05/16/18 13:05 13:35 14:05 Temperature Pulse Rate 102 H 103 H 102 H Respiratory 18 18 18 Rate Blood Pressure 166/83 172/76 H 170/93 O2 Sat by Pulse Oximetry (%) 05/16/18 05/16/18 05/16/18 14:35 15:05 15:28 Temperature Pulse Rate 102 H 103 H 100 H Respiratory 18 18 18 Rate Blood Pressure 168/83 166/80 162/67 O2 Sat by Pulse Oximetry (%) 05/16/18 05/16/18 05/17/18 21:00 21:33 02:00 Temperature 98.9 F 97.8 F Pulse Rate 92 H 94 H Respiratory 18 18 20 Rate Blood Pressure 116/60 151/68 O2 Sat by Pulse 96 Oximetry (%) 05/17/18 05/17/18 05/17/18 06:04 07:49 10:05 Temperature 98.2 F 98.7 F Pulse Rate 93 H 94 H Respiratory 18 18 18 Rate Blood Pressure 106/48 L 141/75 O2 Sat by Pulse 96 Oximetry (%) Current Medications Generic Name Dose Route Start Last Admin Trade Name Freq PRN Reason Stop Dose Admin Albuterol Sulfate 1 amp 05/14/18 12:34 Ventolin 0.083% Nebulizer Soln - NEB Q4H PRN SHORT OF BREATH/WHEEZING Albuterol/Ipratropium 1 amp 05/16/18 13:02 Duoneb - NEB Q6H PRN SHORTNESS OF BREATH Calcitriol 0.25 mcg 05/17/18 10:00 05/17/18 09:57 Rocaltrol - PO 0.25 mcg DAILY [facility] Administration Carvedilol 6.25 mg 05/16/18 22:00 05/17/18 09:57 Coreg - PO 6.25 mg BID [facility] Administration Clopidogrel Bisulfate 75 mg 05/17/18 10:00 05/17/18 09:56 Plavix - PO 75 mg DAILY [facility] Administration Piperacillin Sod/Tazobactam 50 mls @ 100 mls/hr 05/15/18 18:30 05/17/18 09:54 Sod 2.25 gm/ Dextrose IVPB 100 mls/hr Q8H-IV [facility] Administration Protocol Insulin Aspart 1 vial 05/16/18 16:30 05/17/18 12:00 Novolog Vial Sliding Scale - SQ 6 units TIDAC [facility] Administration Protocol Insulin Detemir 10 units 05/16/18 22:00 05/16/18 21:35 Levemir Vial SQ 10 units HS [facility] Administration Isosorbide Mononitrate 30 mg 05/17/18 10:00 05/17/18 09:57 Imdur - PO 30 mg DAILY [facility] Administration Lactulose 30 gm 05/16/18 15:45 05/17/18 09:54 Cephulac (Oral Use) PO 30 gm DAILY [facility] Administration Pantoprazole Sodium 40 mg 05/15/18 22:00 05/17/18 09:57 Protonix Iv IVPUSH 40 mg BID [facility] Administration Ranolazine 500 mg 05/16/18 22:00 05/17/18 09:56 Ranexa - PO 500 mg BID [facility] Administration Sevelamer Carbonate 800 mg 05/16/18 17:30 05/17/18 12:04 Renvela - PO 800 mg TIDCM [facility] Administration Laboratory Results - last 24 hr 05/14/18 05/16/18 05/16/18 16:50 10:20 12:30 PTT (Actin FS) 27.4 Sodium 135 L Potassium 5.3 H Chloride 97 L Carbon Dioxide 27 Anion Gap 11 BUN 74 H Creatinine 6.4 H Creat Clearance w eGFR 8.55 POC Glucometer Random Glucose 347 H* Calcium 9.4 Hep A IgM Ab Confirm Negative Hepatitis A Ab Total Positive H Hep Bs Antigen Negative Hep Bs Antibody Non reactive Hep B Core Total Ab Negative 05/16/18 05/16/18 05/17/18 16:35 20:27 05:36 PTT (Actin FS) Sodium Potassium Chloride Carbon Dioxide Anion Gap BUN Creatinine Creat Clearance w eGFR POC Glucometer 250 366 299 Random Glucose Calcium Hep A IgM Ab Confirm Hepatitis A Ab Total Hep Bs Antigen Hep Bs Antibody Hep B Core Total Ab 05/17/18 11:24 PTT (Actin FS) Sodium Potassium Chloride Carbon Dioxide Anion Gap BUN Creatinine Creat Clearance w eGFR POC Glucometer 287 Random Glucose Calcium Hep A IgM Ab Confirm Hepatitis A Ab Total Hep Bs Antigen Hep Bs Antibody Hep B Core Total Ab S1 S2 RRR Lungs clear Abd- soft, NT No edema Skin tear at dorsum of left foot PLAN S/p volume overload AMS ESRD on HD Anemia -- spoke with daughter -- h/o anoxic brain injury -- h/o cardiac arrest -- dc antibiotics- spoke with ID -- he has tarry stools- will dc Plavix- ok with Cardiology Problem List - Problems (1) Hypoxia Code(s): R09.02 - HYPOXEMIA (2) ESRD (end stage renal disease) on dialysis Code(s): N18.6 - END STAGE RENAL DISEASE; Z99.2 - DEPENDENCE ON RENAL DIALYSIS (3) Altered mental status Code(s): R41.82 - ALTERED MENTAL STATUS, UNSPECIFIED
--- NOTE | 2018-05-17 13:11 | PN ---
Progress Note (short form) - Note Progress Note: improved with HD Vital Signs Period Temp Pulse Resp BP Sys/Adams Pulse Ox Last 24 Hr 97.8 F-98.9 F 92-103 18-20 106-172/48-93 96-96 cor-rrr lungs clear abd soft,nt ext no edema CBC, BMP 05/16/18 10:20 05/16/18 10:20 Microbiology 05/15/18 12:30 Blood - Peripheral Venous Blood Culture - Preliminary NO GROWTH OBTAINED AFTER 48 HOURS, INCUBATION TO CONTINUE FOR 3 DAYS. 05/15/18 12:00 Blood - Peripheral Venous Blood Culture - Preliminary NO GROWTH OBTAINED AFTER 48 HOURS, INCUBATION TO CONTINUE FOR 3 DAYS. 05/14/18 08:15 Urine - Urine - Catheterized Urine Culture - Final NO GROWTH OBTAINED a/p suspected volume overload, cultures negative no fever or leukocytosis will d/c zosyn
[2018-05-17] MEDS ORDERED: PT OWN MED DRAWER 7, Y5N ONE ×2 (13:15→22:05)
[2018-05-17] MEDS ORDERED: SODIUM CHLORIDE 250 ML IV PRN (15:15)
--- NOTE | 2018-05-17 15:45 | PN ---
Progress Note (short form) - Note Progress Note: covering dr meeks Problems 1. ESRD 2. hypoxia 3. CAD 4. hx of cardiac arrest 5. lethargy 6. DM 7. HLD 8. anemia Current Medications Albuterol Sulfate (Ventolin 0.083% Nebulizer Soln -) 1 amp NEB Q4H PRN PRN Reason: SHORT OF BREATH/WHEEZING Albuterol/Ipratropium (Duoneb -) 1 amp NEB Q6H PRN PRN Reason: SHORTNESS OF BREATH Calcitriol (Rocaltrol -) 0.25 mcg PO DAILY [facility] Last Admin: 05/17/18 09:57 Dose: 0.25 mcg Carvedilol (Coreg -) 6.25 mg PO BID [facility] Last Admin: 05/17/18 09:57 Dose: 6.25 mg Insulin Aspart (Novolog Vial Sliding Scale -) 1 vial SQ TIDAC [facility]; Protocol Last Admin: 05/17/18 12:00 Dose: 6 units Insulin Detemir (Levemir Vial) 10 units SQ HS [facility] Last Admin: 05/16/18 21:35 Dose: 10 units Isosorbide Mononitrate (Imdur -) 30 mg PO DAILY [facility] Last Admin: 05/17/18 09:57 Dose: 30 mg Lactulose (Cephulac (Oral Use)) 30 gm PO DAILY [facility] Last Admin: 05/17/18 09:54 Dose: 30 gm Melatonin (Melatonin) 3 mg PO HS [facility] Pantoprazole Sodium (Protonix Iv) 40 mg IVPUSH BID [facility] Last Admin: 05/17/18 09:57 Dose: 40 mg Ranolazine (Ranexa -) 500 mg PO BID [facility] Last Admin: 05/17/18 09:56 Dose: 500 mg Sevelamer Carbonate (Renvela -) 800 mg PO TIDCM [facility] Last Admin: 05/17/18 12:04 Dose: 800 mg Last Vital Signs Temp Pulse Resp BP Pulse Ox 98.5 F 85 16 115/57 L 96 05/17/18 13:25 05/17/18 13:25 05/17/18 13:25 05/17/18 13:25 05/17/18 07:49 Lungs clear Heart reg Abd soft CBC, BMP 05/16/18 10:20 05/16/18 10:20 IMP- esrd- on TTS schedule outpatient? dementia altered mental status- not clear what his baseline is Plan - monitor pulse ox - monitor BP - monitor hg
[2018-05-17] MEDS: MELATONIN 1 MG TABLET PO SCH (22:08)
[2018-05-17] MEDS: INSULIN (LEVEMIR) 100 UNITS/ML UNITS SQ SCH (22:11)
[2018-05-18] MEDS: INSULIN SLIDING SCALE (NOVOLOG) 1 VIAL SQ SCH ×3 (06:01→17:17)
[2018-05-18 06:42] LABS: BASO % 0.3 % (0-2.0); EOS % 3.7 % (0-4.5); HEMATOCRIT 23.5 % (35.4-49); HEMOGLOBIN 7.4 GM/dL (11.7-16.9); LYMPH % 9.1 % (8-40); MCH 30.5 pg (25.7-33.7); MCHC 31.5 g/dl (32.0-35.9); MEAN CELL VOLUME 96.7 fl (80-96); MEAN PLT VOLUME 10.3 fl (7.5-11.1); MONO % 8.1 % (3.8-10.2); NEUT % 78.8 % (42.8-82.8); PLATELET COUNT 114 K/MM3 (134-434); RBC 2.43 M/mm3 (4.00-5.60); RDW 22.4 % (11.9-15.9); WHITE BLOOD COUNT 5.7 K/mm3 (4.0-10.0)
[2018-05-18 07:17] LABS: ALBUMIN 2.4 g/dl (3.4-5.0); ALK PHOS 90 U/L (45-117); ANION GAP 8 MMOL/L (8-16); BILIRUBIN,TOTAL 0.8 mg/dL (0.2-1); BLOOD UREA NITROGEN 58 mg/dL (7-18); CHLORIDE 99 mmol/L (98-107); CO2 33 mmol/L (21-32); CREATININE 6.2 mg/dL (0.55-1.3); GLUCOSE,RANDOM 151 mg/dL (74-106); POTASSIUM 4.2 mmol/L (3.5-5.1); SGOT/AST 15 U/L (15-37); SGPT/ALT 17 U/L (13-61); SODIUM 140 mmol/L (136-145); TOT PROT 6.1 g/dl (6.4-8.2)
[2018-05-18] MEDS: SEVELAMER CARBONATE 800 MG TAB (FP) PO SCH ×3 (08:45→17:17)
[2018-05-18 09:26] LABS: ACANTHOCYTES 1+; ANISOCYTOSIS 3+; MACROCYTOSIS 0; PLATELET ESTIMATE NORMAL
[2018-05-18] MEDS ORDERED: PT OWN MED DRAWER 7, Y5N ONE ×2 (09:54→21:53)
[2018-05-18] MEDS: CARVEDILOL 6.25 MG TABLET (FP) PO SCH ×2 (10:03→22:32)
[2018-05-18] MEDS: RANOLAZINE E.R. 500 MG TABLET (FP) PO SCH ×2 (10:03→22:32)
[2018-05-18] MEDS: ISOSORBIDE MONONITRATE 30 MG TAB.SR.24H (FP) PO SCH (10:03)
[2018-05-18] MEDS: PANTOPRAZOLE SODIUM 40 MG VIAL IVPUSH SCH (10:04)
[2018-05-18] MEDS: LACTULOSE 20 GM/30 ML UDC (FOR ORAL USE ONLY) PO SCH (10:04)
[2018-05-18] MEDS: CALCITRIOL 0.25 MCG CAPSULE (FP) PO SCH (10:49)
--- NOTE | 2018-05-18 11:51 | PN ---
Progress Note (short form) - Note Progress Note: Pt seen/ examined chart reviewed more awake denies pain afebrile chronic ill appearance Vital Signs Temp 98.4 F 05/18/18 06:00 Pulse 84 05/18/18 06:00 Resp 20 05/18/18 06:00 BP 130/58 L 05/18/18 06:00 Pulse Ox 100 05/17/18 21:00 Intake & Output 05/17/18 05/17/18 05/18/18 11:59 23:59 11:59 Intake Total 150 300 250 Balance 150 300 250 Intake: IVPB 50 Oral 100 300 250 Other: Voiding Method Diaper Diaper Diaper # Unmeasured Voids Void 1 Bowel Movement Yes: pasty and black No # Bowel Movements 1 1 Active Medications Albuterol Sulfate (Ventolin 0.083% Nebulizer Soln -) 1 amp NEB Q4H PRN PRN Reason: SHORT OF BREATH/WHEEZING Albuterol/Ipratropium (Duoneb -) 1 amp NEB Q6H PRN PRN Reason: SHORTNESS OF BREATH Calcitriol (Rocaltrol -) 0.25 mcg PO DAILY [facility] Last Admin: 05/18/18 10:49 Dose: 0.25 mcg Carvedilol (Coreg -) 6.25 mg PO BID [facility] Last Admin: 05/18/18 10:03 Dose: 6.25 mg Insulin Aspart (Novolog Vial Sliding Scale -) 1 vial SQ TIDAC [facility]; Protocol Last Admin: 05/18/18 06:01 Dose: 2 units Insulin Detemir (Levemir Vial) 10 units SQ [facility] Last Admin: 05/17/18 22:11 Dose: 10 units Isosorbide Mononitrate (Imdur -) 30 mg PO DAILY [facility] Last Admin: 05/18/18 10:03 Dose: 30 mg Lactulose (Cephulac (Oral Use)) 30 gm PO DAILY [facility] Last Admin: 05/18/18 10:04 Dose: 30 gm Melatonin (Melatonin) 3 mg PO HS [facility] Last Admin: 05/17/18 22:08 Dose: Not Given Pantoprazole Sodium (Protonix -) 40 mg PO DAILY [facility] Ranolazine (Ranexa -) 500 mg PO BID [facility] Last Admin: 05/18/18 10:03 Dose: 500 mg Sevelamer Carbonate (Renvela -) 800 mg PO TIDCM [facility] Last Admin: 05/18/18 08:45 Dose: 800 mg CBC, BMP 05/18/18 06:00 05/18/18 06:00 Microbiology 05/15/18 12:30 Blood Culture - Preliminary Blood - Peripheral Venous NO GROWTH OBTAINED AFTER 48 HOURS, INCUBATION TO CONTINUE FOR 3 DAYS. 05/15/18 12:00 Blood Culture - Preliminary Blood - Peripheral Venous NO GROWTH OBTAINED AFTER 48 HOURS, INCUBATION TO CONTINUE FOR 3 DAYS. Physical conscious/ cooperative S1 S2 RRR Lungs clear Abd- soft, NT No edema PLAN AMS-- better ESRD on HD Anemia s/p cardiac arrest +ve guiac Liver disease ?-- ct scan reviewed check Ammonia level/ inr Transfuse with dialysis tomorrow oob- chair continue other meds' monitor bgm will follow discussed with nursing staff also
--- NOTE | 2018-05-18 12:09 | PN ---
Progress Note (short form) - Note Progress Note: PULMONARY Denies shortness of breath or chest pain. Vital Signs Period Temp Pulse Resp BP Sys/Adams Pulse Ox Last 24 Hr 97.6 F-98.6 F 82-89 16-20 115-156/41-59 100 Gen: NAD at rest Heart: RRR Lung: decreased breath sounds at the bases Abd: soft, nontender Ext: no edema CBC, BMP 05/18/18 06:00 05/18/18 06:00 Active Medications Albuterol Sulfate (Ventolin 0.083% Nebulizer Soln -) 1 amp NEB Q4H PRN PRN Reason: SHORT OF BREATH/WHEEZING Albuterol/Ipratropium (Duoneb -) 1 amp NEB Q6H PRN PRN Reason: SHORTNESS OF BREATH Calcitriol (Rocaltrol -) 0.25 mcg PO DAILY [facility] Last Admin: 05/18/18 10:49 Dose: 0.25 mcg Carvedilol (Coreg -) 6.25 mg PO BID [facility] Last Admin: 05/18/18 10:03 Dose: 6.25 mg Insulin Aspart (Novolog Vial Sliding Scale -) 1 vial SQ TIDAC [facility]; Protocol Last Admin: 05/18/18 12:03 Dose: 4 units Insulin Detemir (Levemir Vial) 10 units SQ [facility] Last Admin: 05/17/18 22:11 Dose: 10 units Isosorbide Mononitrate (Imdur -) 30 mg PO DAILY [facility] Last Admin: 05/18/18 10:03 Dose: 30 mg Lactulose (Cephulac (Oral Use)) 30 gm PO DAILY [facility] Last Admin: 05/18/18 10:04 Dose: 30 gm Melatonin (Melatonin) 3 mg PO HS [facility] Last Admin: 05/17/18 22:08 Dose: Not Given Pantoprazole Sodium (Protonix -) 40 mg PO DAILY [facility] Ranolazine (Ranexa -) 500 mg PO BID [facility] Last Admin: 05/18/18 10:03 Dose: 500 mg Sevelamer Carbonate (Renvela -) 800 mg PO TIDCM [facility] Last Admin: 05/18/18 08:45 Dose: 800 mg A/P Acute on Chronic Systolic Heart Failure improving Mitral Stenosis s/p TAVR ESRD on HD Pulmonary HTN CAD s/p CABG HTN Anemia - HD per renal with ultrafiltration - O2 as needed - inhaled bronchodilators as needed - DVT prophylaxis
--- NOTE | 2018-05-18 13:19 | PN ---
GI Progress Note Subjective: No acute events No abdominal pain Awake States that breathing is "still hard" - Objective Vital Signs: Vital Signs Temperature 98.4 F 05/18/18 06:00 Pulse Rate 84 05/18/18 06:00 Respiratory Rate 20 05/18/18 06:00 Blood Pressure 130/58 L 05/18/18 06:00 O2 Sat by Pulse Oximetry (%) 100 05/17/18 21:00 Constitutional: Calm Eyes: No: Sclera Icterus Cardiovascular: Yes: Regular Rate and Rhythm Respiratory: Yes: Diminished (at right base), Rhonchi (bilaterally) ...Auscultate: Yes: Normoactive Bowel Sounds ...Palpate: Yes: Soft. No: Hepatomegaly, Splenomegaly, Tenderness Edema: No ( No LE edema) Neurological: Yes: Alert, Oriented (x person, partially to place, time) Labs: CBC, BMP 05/18/18 06:00 05/18/18 06:00 INR, PTT INR 1.48 (0.83-1.09) H 05/14/18 07:40 Problem List - Problems (1) Anemia Assessment/Plan: No overt bleeding. Likely multifactorial, still w/ complaints of SOB EGD/Colonoscopy could be considered when medically cleared and with plavix held Code(s): D64.9 - ANEMIA, UNSPECIFIED
--- NOTE | 2018-05-18 15:10 | PN ---
Progress Note (short form) - Note Progress Note: s: no cp sob palps dizzy o: Vital Signs Period Temp Pulse Resp BP Sys/Adams Pulse Ox Last 24 Hr 97.5 F-98.6 F 79-89 18-20 107-156/41-59 100 Constitutional: Yes: Well Nourished, No Distress Eyes: No: Sclera Icterus HENT: No: Nasal Congestion Neck: No: Decreased ROM Respiratory: Yes: CTA Bilaterally, saúl rales. No: Accessory Muscle Use Gastrointestinal: Yes: Normal Bowel Sounds. No: Distention, Hepatomegaly, Palpable Mass, Tenderness Cardiovascular: Yes: Regular Rate and Rhythm JVD: Yes Heart Sounds: Yes: S1, S2. No: Gallop Murmur: No: Systolic Murmur, Diastolic Murmur Extremities: No: Cold, Cyanosis Edema: No Integumentary: No: Jaundice Neurological: Yes: Lethargy. No: Oriented Psychiatric: No: Agitated Current Medications Albuterol Sulfate (Ventolin 0.083% Nebulizer Soln -) 1 amp NEB Q4H PRN PRN Reason: SHORT OF BREATH/WHEEZING Albuterol/Ipratropium (Duoneb -) 1 amp NEB Q6H PRN PRN Reason: SHORTNESS OF BREATH Calcitriol (Rocaltrol -) 0.25 mcg PO DAILY [facility] Last Admin: 05/18/18 10:49 Dose: 0.25 mcg Carvedilol (Coreg -) 6.25 mg PO BID [facility] Last Admin: 05/18/18 10:03 Dose: 6.25 mg Insulin Aspart (Novolog Vial Sliding Scale -) 1 vial SQ TIDAC [facility]; Protocol Last Admin: 05/18/18 12:03 Dose: 4 units Insulin Detemir (Levemir Vial) 10 units SQ [facility] Last Admin: 05/17/18 22:11 Dose: 10 units Isosorbide Mononitrate (Imdur -) 30 mg PO DAILY [facility] Last Admin: 05/18/18 10:03 Dose: 30 mg Lactulose (Cephulac (Oral Use)) 30 gm PO DAILY [facility] Last Admin: 05/18/18 10:04 Dose: 30 gm Melatonin (Melatonin) 3 mg PO [facility] Last Admin: 05/17/18 22:08 Dose: Not Given Pantoprazole Sodium (Protonix -) 40 mg PO DAILY [facility] Ranolazine (Ranexa -) 500 mg PO BID [facility] Last Admin: 05/18/18 10:03 Dose: 500 mg Sevelamer Carbonate (Renvela -) 800 mg PO TIDCM [facility] Last Admin: 05/18/18 12:06 Dose: 800 mg Assessment/Plan ECG: sinus, V-paced CXR x 2: no effusions. ? mild congestion Echo: mod reduced EF (35-40%). apical-septal severe HK, septal motion c/w conduction abnormality. nl RV. mod LAE. ? prior MV repair/annuloplasty ring, + thickened leaflets: severe mitral stenosis (tech mean gradient 12 mmHg), mild MR. mild TR. RVSP 30-40. CT head x 2 no acute pathology tele: sr, as-svp research and strategic analysis alt MS, lethargy: -recent admits to outside hosp for same. pt dtr states this is possibly unchanged from his baseline since cardiac arrest - manage per PMD acute hypoxemic resp failure: -not a new problem, felt to be due to chronic aspirations at outside hosp last month, with V/Q then negative. -pt with decreased EF and severe mitral stenosis--? CHF. CXR with reticulonodular infiltrates bilaterally, no effusions and elevated JVD c/w vol overload -at this point in time, low clinical suspicion for PE given objective findings of fluid overload and recent h/o aspirations and hypoxia unrelated to PE -therefore, would not rec CTA at this time--observe oxygenation after repeat HD as fluid status improves. if clinical status deteriorates or fails to improve once volume is off, will reconsider CTA (has risks of anaphylaxis given h/o contrast true allergy). disc'd this plan with dtr (anju) who agrees with plan , and is herself worried about risks of contrast reaction -vol mgmt per renal (ESRD on HD) acute syst CHF, s/p TAVR (2017), mitral stenosis: -EF 35-40%, on home coreg and imdur -cxr with suspicion for mild CHF -volume mgmt with HD -tarry stools noted, plavix dc'ed CAD, reported h/o CABG: -nonspecific sx's (altered MS, lethargy) -ECG v-paced. trop neg. -cont home meds HTN: -bp somewhat labile here, currently stable/controlled -cont home meds ESRD on HD: -per renal anemia: -hgb 7s-8s here, no prior baseline available -guaiac positive -recurrent H/H drops at outside hosp 04/14 req transfusions per dtr - plavix held for tarry stool and anemia -GI on board--pt hi risk for scopes until acute issues resolve
--- NOTE | 2018-05-18 15:39 | PN ---
Progress Note, Physician History of Present Illness: Pt seen and examined at bedside. He is more awake and interactive. His oxygen requirements are improved. - Current Medication List Current Medications: Active Medications Albuterol Sulfate (Ventolin 0.083% Nebulizer Soln -) 1 amp NEB Q4H PRN PRN Reason: SHORT OF BREATH/WHEEZING Albuterol/Ipratropium (Duoneb -) 1 amp NEB Q6H PRN PRN Reason: SHORTNESS OF BREATH Calcitriol (Rocaltrol -) 0.25 mcg PO DAILY [facility] Last Admin: 05/18/18 10:49 Dose: 0.25 mcg Carvedilol (Coreg -) 6.25 mg PO BID [facility] Last Admin: 05/18/18 10:03 Dose: 6.25 mg Insulin Aspart (Novolog Vial Sliding Scale -) 1 vial SQ TIDAC [facility]; Protocol Last Admin: 05/18/18 12:03 Dose: 4 units Insulin Detemir (Levemir Vial) 10 units SQ HS [facility] Last Admin: 05/17/18 22:11 Dose: 10 units Isosorbide Mononitrate (Imdur -) 30 mg PO DAILY [facility] Last Admin: 05/18/18 10:03 Dose: 30 mg Lactulose (Cephulac (Oral Use)) 30 gm PO DAILY [facility] Last Admin: 05/18/18 10:04 Dose: 30 gm Melatonin (Melatonin) 3 mg PO HS [facility] Last Admin: 05/17/18 22:08 Dose: Not Given Pantoprazole Sodium (Protonix -) 40 mg PO DAILY [facility] Ranolazine (Ranexa -) 500 mg PO BID [facility] Last Admin: 05/18/18 10:03 Dose: 500 mg Sevelamer Carbonate (Renvela -) 800 mg PO TIDCM [facility] Last Admin: 05/18/18 12:06 Dose: 800 mg - Objective Vital Signs: Vital Signs Temperature 97.5 F L 05/18/18 13:36 Pulse Rate 79 05/18/18 13:36 Respiratory Rate 18 05/18/18 13:36 Blood Pressure 107/49 L 05/18/18 13:36 O2 Sat by Pulse Oximetry (%) 100 05/17/18 21:00 Constitutional: Yes: Calm Eyes: Yes: Conjunctiva Clear HENT: Yes: Atraumatic Cardiovascular: Yes: S1, S2 Respiratory: Yes: On Nasal O2 Gastrointestinal: Yes: Normal Bowel Sounds, Soft Genitourinary: Yes: Incontinence Musculoskeletal: Yes: Muscle Weakness Edema: No Neurological: Yes: Oriented Labs: CBC, BMP 05/18/18 06:00 05/18/18 06:00 INR, PTT INR 1.48 (0.83-1.09) H 05/14/18 07:40 Problem List - Problems (1) Altered mental status Code(s): R41.82 - ALTERED MENTAL STATUS, UNSPECIFIED (2) ESRD (end stage renal disease) on dialysis Code(s): N18.6 - END STAGE RENAL DISEASE; Z99.2 - DEPENDENCE ON RENAL DIALYSIS Assessment/Plan Current Medications Generic Name Dose Route Start Last Admin Trade Name Freq PRN Reason Stop Dose Admin Albuterol Sulfate 1 amp 05/14/18 12:34 Ventolin 0.083% Nebulizer Soln - NEB Q4H PRN SHORT OF BREATH/WHEEZING Albuterol/Ipratropium 1 amp 05/16/18 13:02 Duoneb - NEB Q6H PRN SHORTNESS OF BREATH Calcitriol 0.25 mcg 05/17/18 10:00 05/18/18 10:49 Rocaltrol - PO 0.25 mcg DAILY [facility] Administration Carvedilol 6.25 mg 05/16/18 22:00 05/18/18 10:03 Coreg - PO 6.25 mg BID [facility] Administration Insulin Aspart 1 vial 05/16/18 16:30 05/18/18 12:03 Novolog Vial Sliding Scale - SQ 4 units TIDAC [facility] Administration Protocol Insulin Detemir 10 units 05/16/18 22:00 05/17/18 22:11 Levemir Vial SQ 10 units HS [facility] Administration Isosorbide Mononitrate 30 mg 05/17/18 10:00 05/18/18 10:03 Imdur - PO 30 mg DAILY [facility] Administration Lactulose 30 gm 05/16/18 15:45 05/18/18 10:04 Cephulac (Oral Use) PO 30 gm DAILY [facility] Administration Melatonin 3 mg 05/17/18 22:00 05/17/18 22:08 Melatonin PO Not Given HS [facility] Pantoprazole Sodium 40 mg 05/19/18 10:00 Protonix - PO DAILY [facility] Ranolazine 500 mg 05/16/18 22:00 05/18/18 10:03 Ranexa - PO 500 mg BID [facility] Administration Sevelamer Carbonate 800 mg 05/16/18 17:30 05/18/18 12:06 Renvela - PO 800 mg TIDCM [facility] Administration Impression 1. ESRD 2. hypoxia 3. CAD 4. hx of cardiac arrest 5. lethargy 6. DM 7. HLD 8. anemia Plan - HD in am - monitor pulse ox - mental status is improving - monitor hg - epogen for anemia - will follow Dr Toth
[2018-05-18] MEDS: INSULIN (LEVEMIR) 100 UNITS/ML UNITS SQ SCH (22:32)
[2018-05-18] MEDS: MELATONIN 1 MG TABLET PO SCH (23:13)
[2018-05-19] MEDS ORDERED: SODIUM CHLORIDE 250 ML IV PRN (06:21)
[2018-05-19] MEDS: INSULIN SLIDING SCALE (NOVOLOG) 1 VIAL SQ SCH ×3 (06:22→17:32)
[2018-05-19] MEDS ORDERED: EPOETIN ALFA 3,000 UNIT/1 ML ML IVPUSH ONE (08:00)
[2018-05-19 08:10] LABS: BASO % 0.4 % (0-2.0); EOS % 3.9 % (0-4.5); HEMATOCRIT 24.1 % (35.4-49); HEMOGLOBIN 7.5 GM/dL (11.7-16.9); LYMPH % 10.4 % (8-40); MCHC 31.2 g/dl (32.0-35.9); MEAN CELL VOLUME 96.3 fl (80-96); MEAN PLT VOLUME 10.6 fl (7.5-11.1); MONO % 7.7 % (3.8-10.2); NEUT % 77.6 % (42.8-82.8); PLATELET COUNT 111 K/MM3 (134-434); RDW 21.9 % (11.9-15.9); WHITE BLOOD COUNT 5.6 K/mm3 (4.0-10.0)
[2018-05-19 08:48] LABS: ALBUMIN 2.5 g/dl (3.4-5.0); ALK PHOS 100 U/L (45-117); ANION GAP 9 MMOL/L (8-16); BILIRUBIN,TOTAL 0.8 mg/dL (0.2-1); BLOOD UREA NITROGEN 71 mg/dL (7-18); CALCIUM 9.1 mg/dL (8.5-10.1); CHLORIDE 97 mmol/L (98-107); CO2 31 mmol/L (21-32); GLUCOSE,RANDOM 156 mg/dL (74-106); SGOT/AST 12 U/L (15-37); SGPT/ALT 19 U/L (13-61); SODIUM 137 mmol/L (136-145); TOT PROT 6.3 g/dl (6.4-8.2)
[2018-05-19 09:30] LABS: CREATININE 7.4 mg/dL (0.55-1.3)
[2018-05-19 09:54] LABS: INR 1.5 (0.83-1.09); PROTHROMBIN TIME (PATIENT) 17.8 SEC (9.7-13.0)
--- NOTE | 2018-05-19 11:35 | PN ---
Progress Note (short form) - Note Progress Note: PULMONARY Mental status continues to improve. Denies shortness of breath or chest pain. Vital Signs Period Temp Pulse Resp BP Sys/Adams Pulse Ox Last 24 Hr 96.7 F-97.9 F 70-98 18-20 107-152/49-77 100-100 Gen: NAD at rest Heart: RRR Lung: decreased breath sounds at the bases Abd: soft, nontender Ext: no edema CBC, BMP 05/19/18 07:20 05/19/18 07:20 Active Medications Albuterol Sulfate (Ventolin 0.083% Nebulizer Soln -) 1 amp NEB Q4H PRN PRN Reason: SHORT OF BREATH/WHEEZING Albuterol/Ipratropium (Duoneb -) 1 amp NEB Q6H PRN PRN Reason: SHORTNESS OF BREATH Calcitriol (Rocaltrol -) 0.25 mcg PO DAILY [facility] Last Admin: 05/18/18 10:49 Dose: 0.25 mcg Carvedilol (Coreg -) 6.25 mg PO BID [facility] Last Admin: 05/18/18 22:32 Dose: 6.25 mg Sodium Chloride (Normal Saline -) 250 mls @ 3,000 mls/hr IV PRN PRN PRN Reason: Hypotension during Dialysis Stop: 05/20/18 06:20 Insulin Aspart (Novolog Vial Sliding Scale -) 1 vial SQ TIDAC [facility]; Protocol Last Admin: 05/19/18 06:22 Dose: 2 units Insulin Detemir (Levemir Vial) 10 units SQ HS [facility] Last Admin: 05/18/18 22:32 Dose: 10 units Isosorbide Mononitrate (Imdur -) 30 mg PO DAILY [facility] Last Admin: 05/18/18 10:03 Dose: 30 mg Lactulose (Cephulac (Oral Use)) 30 gm PO DAILY [facility] Last Admin: 05/18/18 10:04 Dose: 30 gm Melatonin (Melatonin) 3 mg PO HS [facility] Last Admin: 05/18/18 23:13 Dose: 3 mg Pantoprazole Sodium (Protonix -) 40 mg PO DAILY [facility] Ranolazine (Ranexa -) 500 mg PO BID [facility] Last Admin: 05/18/18 22:32 Dose: 500 mg Sevelamer Carbonate (Renvela -) 800 mg PO TIDCM [facility] Last Admin: 05/18/18 17:17 Dose: 800 mg A/P Acute on Chronic Systolic Heart Failure improving Mitral Stenosis s/p TAVR ESRD on HD Pulmonary HTN CAD s/p CABG HTN Anemia - HD per renal with ultrafiltration - O2 as needed - inhaled bronchodilators as needed - DVT prophylaxis
[2018-05-19] MEDS: RANOLAZINE E.R. 500 MG TABLET (FP) PO SCH ×2 (11:36→22:34)
[2018-05-19] MEDS: ISOSORBIDE MONONITRATE 30 MG TAB.SR.24H (FP) PO SCH (11:37)
[2018-05-19] MEDS: SEVELAMER CARBONATE 800 MG TAB (FP) PO SCH ×3 (11:37→17:32)
[2018-05-19] MEDS: LACTULOSE 20 GM/30 ML UDC (FOR ORAL USE ONLY) PO SCH (11:37)
[2018-05-19] MEDS: CARVEDILOL 6.25 MG TABLET (FP) PO SCH ×2 (11:38→22:34)
[2018-05-19] MEDS: PANTOPRAZOLE 40 MG TABLET (FP) PO SCH (11:38)
[2018-05-19] MEDS: CALCITRIOL 0.25 MCG CAPSULE (FP) PO SCH (11:39)
--- NOTE | 2018-05-19 11:41 | PN ---
Progress Note (short form) - Note Progress Note: s: no cp sob palps dizzy. feels better o: Vital Signs Period Temp Pulse Resp BP Sys/Adams Pulse Ox Last 24 Hr 96.7 F-97.9 F 70-98 18-20 107-152/49-77 100-100 Constitutional: Yes: Well Nourished, No Distress Eyes: No: Sclera Icterus HENT: No: Nasal Congestion Neck: No: Decreased ROM Respiratory: Yes: CTA Bilaterally, saúl rales. No: Accessory Muscle Use Gastrointestinal: Yes: Normal Bowel Sounds. No: Distention, Hepatomegaly, Palpable Mass, Tenderness Cardiovascular: Yes: Regular Rate and Rhythm JVD: Yes Heart Sounds: Yes: S1, S2. No: Gallop Murmur: No: Systolic Murmur, Diastolic Murmur Extremities: No: Cold, Cyanosis Edema: No Integumentary: No: Jaundice Neurological: Yes: Lethargy. No: Oriented Psychiatric: No: Agitated Current Medications Albuterol Sulfate (Ventolin 0.083% Nebulizer Soln -) 1 amp NEB Q4H PRN PRN Reason: SHORT OF BREATH/WHEEZING Albuterol/Ipratropium (Duoneb -) 1 amp NEB Q6H PRN PRN Reason: SHORTNESS OF BREATH Calcitriol (Rocaltrol -) 0.25 mcg PO DAILY [facility] Last Admin: 05/19/18 11:39 Dose: 0.25 mcg Carvedilol (Coreg -) 6.25 mg PO BID [facility] Last Admin: 05/19/18 11:38 Dose: 6.25 mg Sodium Chloride (Normal Saline -) 250 mls @ 3,000 mls/hr IV PRN PRN PRN Reason: Hypotension during Dialysis Stop: 05/20/18 06:20 Insulin Aspart (Novolog Vial Sliding Scale -) 1 vial SQ TIDAC [facility]; Protocol Last Admin: 05/19/18 06:22 Dose: 2 units Insulin Detemir (Levemir Vial) 10 units SQ HS [facility] Last Admin: 05/18/18 22:32 Dose: 10 units Isosorbide Mononitrate (Imdur -) 30 mg PO DAILY [facility] Last Admin: 05/19/18 11:37 Dose: 30 mg Lactulose (Cephulac (Oral Use)) 30 gm PO DAILY [facility] Last Admin: 05/19/18 11:37 Dose: 30 gm Melatonin (Melatonin) 3 mg PO HS [facility] Last Admin: 05/18/18 23:13 Dose: 3 mg Pantoprazole Sodium (Protonix -) 40 mg PO DAILY [facility] Last Admin: 05/19/18 11:38 Dose: 40 mg Ranolazine (Ranexa -) 500 mg PO BID [facility] Last Admin: 05/19/18 11:36 Dose: 500 mg Sevelamer Carbonate (Renvela -) 800 mg PO TIDCM [facility] Last Admin: 05/19/18 11:37 Dose: 800 mg Assessment/Plan ECG: sinus, V-paced CXR x 2: no effusions. ? mild congestion Echo: mod reduced EF (35-40%). apical-septal severe HK, septal motion c/w conduction abnormality. nl RV. mod LAE. ? prior MV repair/annuloplasty ring, + thickened leaflets: severe mitral stenosis (tech mean gradient 12 mmHg), mild MR. mild TR. RVSP 30-40. 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 pt dtr states this is possibly unchanged from his baseline since cardiac arrest - manage per PMD acute hypoxemic resp failure: -not a new problem, felt to be due to chronic aspirations at outside hosp last month, with V/Q then negative. -pt with decreased EF and severe mitral stenosis--? CHF. CXR with reticulonodular infiltrates bilaterally, no effusions and elevated JVD c/w vol overload - resp status improving wtih HD with UF -vol mgmt per renal (ESRD on HD) acute syst CHF, s/p TAVR (2017), mitral stenosis: -EF 35-40%, on home coreg and imdur -cxr with suspicion for mild CHF -volume mgmt with HD -tarry stools noted, plavix dc'ed CAD, reported h/o CABG: -nonspecific sx's (altered MS, lethargy) -ECG v-paced. trop neg. -cont home meds HTN: -bp somewhat labile here, currently stable/controlled -cont home meds ESRD on HD: -per renal anemia: -hgb 7s-8s here, no prior baseline available -guaiac positive -recurrent H/H drops at outside hosp 04/14 req transfusions per dtr - plavix held for tarry stool and anemia -GI on board--pt hi risk for scopes until acute issues resolve
--- NOTE | 2018-05-19 12:03 | PN ---
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 Doing quite well. Much improved. Swallowing reassessed with good tolerance of 3 oz water test/cracker, Trial of chopped diet with 1-2 soft items and thin liquid. Supervision/ monitor tolerance
--- NOTE | 2018-05-19 13:43 | PN ---
Progress Note, Physician History of Present Illness: Pt seen and examined at bedside. He is awake and appears comfortable. He denies worsening of shortness of breath. He tolerated HD yesterday. - Current Medication List Current Medications: Active Medications Albuterol/Ipratropium (Duoneb -) 1 amp NEB Q6H PRN PRN Reason: SHORTNESS OF BREATH Calcitriol (Rocaltrol -) 0.25 mcg PO DAILY [facility] Last Admin: 05/19/18 11:39 Dose: 0.25 mcg Carvedilol (Coreg -) 6.25 mg PO BID [facility] Last Admin: 05/19/18 11:38 Dose: 6.25 mg Sodium Chloride (Normal Saline -) 250 mls @ 3,000 mls/hr IV PRN PRN PRN Reason: Hypotension during Dialysis Stop: 05/20/18 06:20 Insulin Aspart (Novolog Vial Sliding Scale -) 1 vial SQ TIDAC [facility]; Protocol Last Admin: 05/19/18 12:45 Dose: 4 units Insulin Detemir (Levemir Vial) 10 units SQ [facility] Last Admin: 05/18/18 22:32 Dose: 10 units Isosorbide Mononitrate (Imdur -) 30 mg PO DAILY [facility] Last Admin: 05/19/18 11:37 Dose: 30 mg Lactulose (Cephulac (Oral Use)) 30 gm PO DAILY [facility] Last Admin: 05/19/18 11:37 Dose: 30 gm Melatonin (Melatonin) 3 mg PO HS [facility] Last Admin: 05/18/18 23:13 Dose: 3 mg Pantoprazole Sodium (Protonix -) 40 mg PO DAILY [facility] Last Admin: 05/19/18 11:38 Dose: 40 mg Ranolazine (Ranexa -) 500 mg PO BID [facility] Last Admin: 05/19/18 11:36 Dose: 500 mg Sevelamer Carbonate (Renvela -) 800 mg PO TIDCM [facility] Last Admin: 05/19/18 12:46 Dose: 800 mg - Objective Vital Signs: Vital Signs Temperature 97.8 F 05/19/18 07:20 Pulse Rate 98 H 05/19/18 11:10 Respiratory Rate 18 05/19/18 11:10 Blood Pressure 150/72 05/19/18 11:10 O2 Sat by Pulse Oximetry (%) 100 05/19/18 09:00 Constitutional: Yes: Calm Eyes: Yes: Conjunctiva Clear HENT: Yes: Atraumatic Cardiovascular: Yes: S1, S2 Respiratory: Yes: On Nasal O2 Gastrointestinal: Yes: Soft Genitourinary: Yes: WNL Musculoskeletal: Yes: WNL Edema: No Neurological: Yes: Confusion, Pre-Existing Deficit Psychiatric: Yes: Oriented Labs: CBC, BMP 05/19/18 07:20 05/19/18 07:20 INR, PTT INR 1.50 (0.83-1.09) H 05/19/18 09:15 Problem List - Problems (1) Altered mental status Code(s): R41.82 - ALTERED MENTAL STATUS, UNSPECIFIED (2) ESRD (end stage renal disease) on dialysis Code(s): N18.6 - END STAGE RENAL DISEASE; Z99.2 - DEPENDENCE ON RENAL DIALYSIS Assessment/Plan Current Medications Generic Name Dose Route Start Last Admin Trade Name Freq PRN Reason Stop Dose Admin Albuterol/Ipratropium 1 amp 05/16/18 13:02 Duoneb - NEB Q6H PRN SHORTNESS OF BREATH Calcitriol 0.25 mcg 05/17/18 10:00 05/19/18 11:39 Rocaltrol - PO 0.25 mcg DAILY [facility] Administration Carvedilol 6.25 mg 05/16/18 22:00 05/19/18 11:38 Coreg - PO 6.25 mg BID [facility] Administration Sodium Chloride 250 mls @ 3,000 mls/hr 05/19/18 06:21 Normal Saline - IV 05/20/18 06:20 PRN PRN Hypotension during Dialysis Insulin Aspart 1 vial 05/16/18 16:30 05/19/18 12:45 Novolog Vial Sliding Scale - SQ 4 units TIDAC [facility] Administration Protocol Insulin Detemir 10 units 05/16/18 22:00 05/18/18 22:32 Levemir Vial SQ 10 units HS [facility] Administration Isosorbide Mononitrate 30 mg 05/17/18 10:00 05/19/18 11:37 Imdur - PO 30 mg DAILY [facility] Administration Lactulose 30 gm 05/16/18 15:45 05/19/18 11:37 Cephulac (Oral Use) PO 30 gm DAILY [facility] Administration Melatonin 3 mg 05/17/18 22:00 05/18/18 23:13 Melatonin PO 3 mg HS [facility] Administration Pantoprazole Sodium 40 mg 05/19/18 10:00 05/19/18 11:38 Protonix - PO 40 mg DAILY [facility] Administration Ranolazine 500 mg 05/16/18 22:00 05/19/18 11:36 Ranexa - PO 500 mg BID [facility] Administration Sevelamer Carbonate 800 mg 05/16/18 17:30 05/19/18 12:46 Renvela - PO 800 mg TIDCM [facility] Administration Impression 1. ESRD 2. hypoxia 3. CAD 4. hx of cardiac arrest 5. lethargy 6. DM 7. HLD 8. anemia Plan - HD today - pt did get a unit of blood - monitor volume status - epogen for anemia - mental status is improving - will follow Dr Toth
--- NOTE | 2018-05-19 13:46 | PN ---
Progress Note (short form) - Note Progress Note: awake and conversant vitals noted no complaints s/p PRBC today during HD tarry stools labs - HCT same S1 S2 RRR Lungs clear Abd- soft, NT No edema Skin tear at dorsum of left foot PLAN S/p volume overload AMS ESRD on HD Anemia -- spoke with daughter -- h/o anoxic brain injury -- h/o cardiac arrest -- monitor HCT -- daughter reluctant for GI work up due to high risk Problem List - Problems (1) Hypoxia Code(s): R09.02 - HYPOXEMIA (2) ESRD (end stage renal disease) on dialysis Code(s): N18.6 - END STAGE RENAL DISEASE; Z99.2 - DEPENDENCE ON RENAL DIALYSIS (3) Altered mental status Code(s): R41.82 - ALTERED MENTAL STATUS, UNSPECIFIED
[2018-05-19] MEDS ORDERED: PT OWN MED DRAWER 7, Y5N ONE (22:29)
[2018-05-19] MEDS: MELATONIN 1 MG TABLET PO SCH (22:34)
[2018-05-19] MEDS: INSULIN (LEVEMIR) 100 UNITS/ML UNITS SQ SCH (22:34)
[2018-05-19] MEDS ORDERED: ACETAMINOPHEN 325 MG TABLET (FP) PO PRN (22:45)
[2018-05-20] MEDS: INSULIN SLIDING SCALE (NOVOLOG) 1 VIAL SQ SCH ×3 (06:07→17:24)
[2018-05-20] MEDS ORDERED: PT OWN MED DRAWER 7, Y5N ONE ×3 (09:28→21:53)
[2018-05-20] MEDS: SEVELAMER CARBONATE 800 MG TAB (FP) PO SCH ×3 (09:44→17:24)
[2018-05-20] MEDS: LACTULOSE 20 GM/30 ML UDC (FOR ORAL USE ONLY) PO SCH (09:44)
[2018-05-20] MEDS: PANTOPRAZOLE 40 MG TABLET (FP) PO SCH (09:44)
[2018-05-20] MEDS: CALCITRIOL 0.25 MCG CAPSULE (FP) PO SCH (09:45)
[2018-05-20] MEDS: ISOSORBIDE MONONITRATE 30 MG TAB.SR.24H (FP) PO SCH (09:45)
[2018-05-20] MEDS: CARVEDILOL 6.25 MG TABLET (FP) PO SCH ×2 (09:45→22:03)
[2018-05-20] MEDS: RANOLAZINE E.R. 500 MG TABLET (FP) PO SCH ×2 (09:45→22:03)
--- NOTE | 2018-05-20 11:12 | PN ---
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 - Note Progress Note: Selected Entries 05/18/18 05/18/18 05/18/18 02:00 06:00 10:00 Breakfast Lunch Supper 75% Temperature 98.6 F 98.4 F 97.9 F 05/18/18 05/18/18 05/18/18 10:47 13:36 16:35 Breakfast 100% Lunch 100% Supper Temperature 97.5 F L 96.7 F L 05/18/18 05/18/18 05/19/18 21:07 23:41 02:00 Breakfast Lunch Supper 100% Temperature 97.1 F L 97.4 F L 05/19/18 05/19/18 05/19/18 06:13 07:20 11:06 Breakfast 25% Lunch Supper Temperature 97.9 F 97.8 F Laboratory Tests 05/19/18 07:20 WBC 5.6 Selected Entries 05/19/18 05/19/18 05/19/18 02:00 06:13 07:20 Breakfast Lunch Supper Temperature 97.4 F L 97.9 F 97.8 F 05/19/18 05/19/18 05/19/18 14:10 15:31 16:30 Breakfast Lunch 100% Supper Temperature 97.6 F 97.5 F L 05/19/18 05/19/18 05/20/18 21:00 23:15 02:00 Breakfast Lunch Supper 100% Temperature 98.8 F 97.6 F 05/20/18 05/20/18 06:00 09:27 Breakfast 100% Lunch Supper Temperature 97.5 F L Laboratory Tests 05/19/18 07:20 WBC 5.6 On dys puree/nectar TL. Doing quite well. Much improved. Swallowing reassessed with good tolerance of 3 oz water test/cracker, Trial of chopped diet with 1-2 soft items and thin liquid. Supervision/ monitor tolerance
--- NOTE | 2018-05-20 11:15 | PN ---
Progress Note, Physician History of Present Illness: Pt seen and examined at bedside. He is awake and more alert. He denies shortness of breath. - Current Medication List Current Medications: Active Medications Acetaminophen (Tylenol -) 650 mg PO Q6H PRN PRN Reason: PAIN 1-3 Last Admin: 05/19/18 22:52 Dose: 650 mg Albuterol/Ipratropium (Duoneb -) 1 amp NEB Q6H PRN PRN Reason: SHORTNESS OF BREATH Calcitriol (Rocaltrol -) 0.25 mcg PO DAILY [facility] Last Admin: 05/20/18 09:45 Dose: 0.25 mcg Carvedilol (Coreg -) 6.25 mg PO BID [facility] Last Admin: 05/20/18 09:45 Dose: 6.25 mg Insulin Aspart (Novolog Vial Sliding Scale -) 1 vial SQ TIDAC [facility]; Protocol Last Admin: 05/20/18 06:07 Dose: 2 units Insulin Detemir (Levemir Vial) 10 units SQ [facility] Last Admin: 05/19/18 22:34 Dose: 10 units Isosorbide Mononitrate (Imdur -) 30 mg PO DAILY [facility] Last Admin: 05/20/18 09:45 Dose: 30 mg Lactulose (Cephulac (Oral Use)) 30 gm PO DAILY [facility] Last Admin: 05/20/18 09:44 Dose: 30 gm Melatonin (Melatonin) 3 mg PO HS [facility] Last Admin: 05/19/18 22:34 Dose: 3 mg Pantoprazole Sodium (Protonix -) 40 mg PO DAILY [facility] Last Admin: 05/20/18 09:44 Dose: 40 mg Ranolazine (Ranexa -) 500 mg PO BID [facility] Last Admin: 05/20/18 09:45 Dose: 500 mg Sevelamer Carbonate (Renvela -) 800 mg PO TIDCM [facility] Last Admin: 05/20/18 09:44 Dose: 800 mg - Objective Vital Signs: Vital Signs Temperature 97.5 F L 05/20/18 06:00 Pulse Rate 92 H 05/20/18 06:00 Respiratory Rate 20 05/20/18 06:00 Blood Pressure 155/88 05/20/18 06:00 O2 Sat by Pulse Oximetry (%) 96 05/19/18 21:00 Constitutional: Yes: Calm Eyes: Yes: Conjunctiva Clear HENT: Yes: Atraumatic Cardiovascular: Yes: S1, S2 Respiratory: Yes: On Nasal O2 Gastrointestinal: Yes: Soft Genitourinary: Yes: Incontinence Edema: No Neurological: Yes: Oriented, Pre-Existing Deficit Labs: CBC, BMP 05/19/18 07:20 05/19/18 07:20 INR, PTT INR 1.50 (0.83-1.09) H 05/19/18 09:15 Problem List - Problems (1) Altered mental status Code(s): R41.82 - ALTERED MENTAL STATUS, UNSPECIFIED (2) ESRD (end stage renal disease) on dialysis Code(s): N18.6 - END STAGE RENAL DISEASE; Z99.2 - DEPENDENCE ON RENAL DIALYSIS Assessment/Plan Current Medications Generic Name Dose Route Start Last Admin Trade Name Freq PRN Reason Stop Dose Admin Acetaminophen 650 mg 05/19/18 22:45 05/19/18 22:52 Tylenol - PO 650 mg Q6H PRN Administration PAIN 1-3 Albuterol/Ipratropium 1 amp 05/16/18 13:02 Duoneb - NEB Q6H PRN SHORTNESS OF BREATH Calcitriol 0.25 mcg 05/17/18 10:00 05/20/18 09:45 Rocaltrol - PO 0.25 mcg DAILY [facility] Administration Carvedilol 6.25 mg 05/16/18 22:00 05/20/18 09:45 Coreg - PO 6.25 mg BID [facility] Administration Insulin Aspart 1 vial 05/16/18 16:30 05/20/18 06:07 Novolog Vial Sliding Scale - SQ 2 units TIDAC [facility] Administration Protocol Insulin Detemir 10 units 05/16/18 22:00 05/19/18 22:34 Levemir Vial SQ 10 units HS [facility] Administration Isosorbide Mononitrate 30 mg 05/17/18 10:00 05/20/18 09:45 Imdur - PO 30 mg DAILY [facility] Administration Lactulose 30 gm 05/16/18 15:45 05/20/18 09:44 Cephulac (Oral Use) PO 30 gm DAILY [facility] Administration Melatonin 3 mg 05/17/18 22:00 05/19/18 22:34 Melatonin PO 3 mg HS [facility] Administration Pantoprazole Sodium 40 mg 05/19/18 10:00 05/20/18 09:44 Protonix - PO 40 mg DAILY [facility] Administration Ranolazine 500 mg 05/16/18 22:00 05/20/18 09:45 Ranexa - PO 500 mg BID [facility] Administration Sevelamer Carbonate 800 mg 05/16/18 17:30 05/20/18 09:44 Renvela - PO 800 mg TIDCM [facility] Administration Impression 1. ESRD 2. hypoxia 3. CAD 4. hx of cardiac arrest 5. lethargy 6. DM 7. HLD 8. anemia Plan - will arrange for HD tomorrow - monitor hg - epogen for anemia - volume status is improved - 95 percent on room air - mental status is improving - will follow Dr Toth
--- NOTE | 2018-05-20 11:56 | PN ---
Progress Note (short form) - Note Progress Note: awake and conversant vitals noted Vital Signs - 24 hr 05/20/18 05/20/18 05/20/18 02:00 06:00 09:00 Temperature 97.6 F 97.5 F L Pulse Rate 93 H 92 H Respiratory 20 20 22 H Rate Blood Pressure 152/82 155/88 O2 Sat by Pulse 96 Oximetry (%) 05/20/18 05/20/18 14:14 18:00 Temperature 97.4 F L 97.3 F L Pulse Rate 91 H 87 Respiratory 22 H 20 Rate Blood Pressure 131/55 L 107/63 O2 Sat by Pulse Oximetry (%) Current Medications Generic Name Dose Route Start Last Admin Trade Name Freq PRN Reason Stop Dose Admin Acetaminophen 650 mg 05/19/18 22:45 05/19/18 22:52 Tylenol - PO 650 mg Q6H PRN Administration PAIN 1-3 Albuterol/Ipratropium 1 amp 05/16/18 13:02 Duoneb - NEB Q6H PRN SHORTNESS OF BREATH Calcitriol 0.25 mcg 05/17/18 10:00 05/20/18 09:45 Rocaltrol - PO 0.25 mcg DAILY [facility] Administration Carvedilol 6.25 mg 05/16/18 22:00 05/20/18 09:45 Coreg - PO 6.25 mg BID [facility] Administration Epoetin Edin 6,000 unit 05/21/18 11:15 Epogen - IVPUSH 05/21/18 11:16 ONCE ONE Sodium Chloride 250 mls @ 3,000 mls/hr 05/20/18 11:15 Normal Saline - IV 05/21/18 11:15 PRN PRN Hypotension during Dialysis Insulin Aspart 1 vial 05/16/18 16:30 05/20/18 17:24 Novolog Vial Sliding Scale - SQ 12 units TIDAC [facility] Administration Protocol Insulin Aspart 5 units 05/20/18 21:26 Novolog Vial SQ 05/20/18 21:27 ONCE ONE Protocol Insulin Detemir 10 units 05/16/18 22:00 05/20/18 21:56 Levemir Vial SQ Not Given HS [facility] Isosorbide Mononitrate 30 mg 05/17/18 10:00 05/20/18 09:45 Imdur - PO 30 mg DAILY [facility] Administration Lactulose 30 gm 05/16/18 15:45 10/24/18 09:44 Cephulac (Oral Use) PO 30 gm DAILY [facility] Administration Melatonin 3 mg 05/17/18 22:00 05/19/18 22:34 Melatonin PO 3 mg HS [facility] Administration Pantoprazole Sodium 40 mg 05/19/18 10:00 05/20/18 09:44 Protonix - PO 40 mg DAILY [facility] Administration Ranolazine 500 mg 05/16/18 22:00 05/20/18 09:45 Ranexa - PO 500 mg BID KAVON Administration Sevelamer Carbonate 800 mg 05/16/18 17:30 05/20/18 17:24 Renvela - PO 800 mg TIDCM KAVON Administration Laboratory Results - last 24 hr 05/19/18 05/20/18 05/20/18 22:36 05:22 11:23 POC Glucometer 305 187 266 no complaints s/p PRBC yesterday during HD tarry stools less labs - HCT same S1 S2 RRR Lungs clear Abd- soft, NT No edema Skin tear at dorsum of left foot- no signs of infection PLAN S/p volume overload AMS ESRD on HD Anemia -- s/p PRBC -- HD tomorrow -- dc planning -- h/o anoxic brain injury -- h/o cardiac arrest -- monitor HCT -- daughter reluctant for GI work up due to high risk Problem List - Problems (1) Hypoxia Code(s): R09.02 - HYPOXEMIA (2) ESRD (end stage renal disease) on dialysis Code(s): N18.6 - END STAGE RENAL DISEASE; Z99.2 - DEPENDENCE ON RENAL DIALYSIS (3) Altered mental status Code(s): R41.82 - ALTERED MENTAL STATUS, UNSPECIFIED
--- NOTE | 2018-05-20 12:27 | PN ---
Progress Note (short form) - Note Progress Note: s: no cp sob palps dizzy. o: Vital Signs Period Temp Pulse Resp BP Sys/Adams Pulse Ox Last 24 Hr 97.5 F-98.8 F 89-99 20-20 128-159/61-88 96 Constitutional: Yes: Well Nourished, No Distress Eyes: No: Sclera Icterus HENT: No: Nasal Congestion Neck: No: Decreased ROM Respiratory: Yes: CTA Bilaterally auscultated anteriorly due to poor cooperation No: Accessory Muscle Use Gastrointestinal: Yes: Normal Bowel Sounds. No: Distention, Hepatomegaly, Palpable Mass, Tenderness Cardiovascular: Yes: Regular Rate and Rhythm JVD: Yes Heart Sounds: Yes: S1, S2. No: Gallop Murmur: No: Systolic Murmur, Diastolic Murmur Extremities: No: Cold, Cyanosis Edema: No Integumentary: No: Jaundice Neurological: Yes: Lethargy. No: Oriented Psychiatric: No: Agitated Current Medications Acetaminophen (Tylenol -) 650 mg PO Q6H PRN PRN Reason: PAIN 1-3 Last Admin: 05/19/18 22:52 Dose: 650 mg Albuterol/Ipratropium (Duoneb -) 1 amp NEB Q6H PRN PRN Reason: SHORTNESS OF BREATH Calcitriol (Rocaltrol -) 0.25 mcg PO DAILY [facility] Last Admin: 05/20/18 09:45 Dose: 0.25 mcg Carvedilol (Coreg -) 6.25 mg PO BID [facility] Last Admin: 05/20/18 09:45 Dose: 6.25 mg Epoetin Edin (Epogen -) 6,000 unit IVPUSH ONCE ONE Stop: 05/21/18 11:16 Sodium Chloride (Normal Saline -) 250 mls @ 3,000 mls/hr IV PRN PRN PRN Reason: Hypotension during Dialysis Stop: 05/21/18 11:15 Insulin Aspart (Novolog Vial Sliding Scale -) 1 vial SQ TIDAC [facility]; Protocol Last Admin: 05/20/18 11:36 Dose: 6 units Insulin Detemir (Levemir Vial) 10 units SQ HS [facility] Last Admin: 05/19/18 22:34 Dose: 10 units Isosorbide Mononitrate (Imdur -) 30 mg PO DAILY [facility] Last Admin: 05/20/18 09:45 Dose: 30 mg Lactulose (Cephulac (Oral Use)) 30 gm PO DAILY [facility] Last Admin: 05/20/18 09:44 Dose: 30 gm Melatonin (Melatonin) 3 mg PO HS [facility] Last Admin: 05/19/18 22:34 Dose: 3 mg Pantoprazole Sodium (Protonix -) 40 mg PO DAILY [facility] Last Admin: 05/20/18 09:44 Dose: 40 mg Ranolazine (Ranexa -) 500 mg PO BID [facility] Last Admin: 05/20/18 09:45 Dose: 500 mg Sevelamer Carbonate (Renvela -) 800 mg PO TIDCM [facility] Last Admin: 05/20/18 11:23 Dose: 800 mg Assessment/Plan ECG: sinus, V-paced CXR x 2: no effusions. ? mild congestion Echo: mod reduced EF (35-40%). apical-septal severe HK, septal motion c/w conduction abnormality. nl RV. mod LAE. ? prior MV repair/annuloplasty ring, + thickened leaflets: severe mitral stenosis (tech mean gradient 12 mmHg), mild MR. mild TR. RVSP 30-40. 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 pt dtr states this is possibly unchanged from his baseline since cardiac arrest - manage per PMD acute hypoxemic resp failure: -not a new problem, felt to be due to chronic aspirations at outside hosp last month, with V/Q then negative. -pt with decreased EF and severe mitral stenosis--? CHF. CXR with reticulonodular infiltrates bilaterally, no effusions and elevated JVD c/w vol overload -vol mgmt per renal (ESRD on HD), sob improving acute syst CHF, s/p TAVR (2017), mitral stenosis: -EF 35-40%, on home coreg and imdur -cxr with suspicion for mild CHF -volume mgmt with HD -tarry stools noted, plavix was dc'ed CAD, reported h/o CABG: -nonspecific sx's (altered MS, lethargy) -ECG v-paced. trop neg. -cont home meds HTN: -bp somewhat labile here, increased this AM but had been generally stable - if remains elevated would restart home amlodipine, continue coreg, imdur -cont home meds ESRD on HD: -per renal anemia: -hgb 7s-8s here, no prior baseline available -guaiac positive -recurrent H/H drops at outside hosp 04/14 req transfusions per dtr - plavix held for tarry stool and anemia -GI on board--pt hi risk for scopes until acute issues resolve
--- NOTE | 2018-05-20 12:46 | PN ---
Progress Note, Physician History of Present Illness: pulmonary awake,gomez alert,-resp distress - Current Medication List Current Medications: Active Medications Acetaminophen (Tylenol -) 650 mg PO Q6H PRN PRN Reason: PAIN 1-3 Last Admin: 05/19/18 22:52 Dose: 650 mg Albuterol/Ipratropium (Duoneb -) 1 amp NEB Q6H PRN PRN Reason: SHORTNESS OF BREATH Calcitriol (Rocaltrol -) 0.25 mcg PO DAILY [facility] Last Admin: 05/20/18 09:45 Dose: 0.25 mcg Carvedilol (Coreg -) 6.25 mg PO BID [facility] Last Admin: 05/20/18 09:45 Dose: 6.25 mg Epoetin Edin (Epogen -) 6,000 unit IVPUSH ONCE ONE Stop: 05/21/18 11:16 Sodium Chloride (Normal Saline -) 250 mls @ 3,000 mls/hr IV PRN PRN PRN Reason: Hypotension during Dialysis Stop: 05/21/18 11:15 Insulin Aspart (Novolog Vial Sliding Scale -) 1 vial SQ TIDAC [facility]; Protocol Last Admin: 05/20/18 11:36 Dose: 6 units Insulin Detemir (Levemir Vial) 10 units SQ HS [facility] Last Admin: 05/19/18 22:34 Dose: 10 units Isosorbide Mononitrate (Imdur -) 30 mg PO DAILY [facility] Last Admin: 05/20/18 09:45 Dose: 30 mg Lactulose (Cephulac (Oral Use)) 30 gm PO DAILY [facility] Last Admin: 05/20/18 09:44 Dose: 30 gm Melatonin (Melatonin) 3 mg PO HS [facility] Last Admin: 05/19/18 22:34 Dose: 3 mg Pantoprazole Sodium (Protonix -) 40 mg PO DAILY [facility] Last Admin: 05/20/18 09:44 Dose: 40 mg Ranolazine (Ranexa -) 500 mg PO BID [facility] Last Admin: 05/20/18 09:45 Dose: 500 mg Sevelamer Carbonate (Renvela -) 800 mg PO TIDCM [facility] Last Admin: 05/20/18 11:23 Dose: 800 mg - Objective Vital Signs: Vital Signs Temperature 97.5 F L 05/20/18 06:00 Pulse Rate 92 H 05/20/18 06:00 Respiratory Rate 20 05/20/18 06:00 Blood Pressure 155/88 05/20/18 06:00 O2 Sat by Pulse Oximetry (%) 96 05/19/18 21:00 Constitutional: Yes: Calm, Thin Eyes: Yes: WNL HENT: Yes: WNL Neck: Yes: WNL Cardiovascular: Yes: Regular Rate and Rhythm, S1, S2 Respiratory: Yes: Rales (few scattered crackles) Gastrointestinal: Yes: Normal Bowel Sounds, Soft Extremities: Yes: WNL Edema: No Labs: CBC, BMP 05/19/18 07:20 05/19/18 07:20 INR, PTT INR 1.50 (0.83-1.09) H 05/19/18 09:15 Problem List - Problems (1) Altered mental status Code(s): R41.82 - ALTERED MENTAL STATUS, UNSPECIFIED (2) ESRD (end stage renal disease) on dialysis Code(s): N18.6 - END STAGE RENAL DISEASE; Z99.2 - DEPENDENCE ON RENAL DIALYSIS (3) ASHD (arteriosclerotic heart disease) Code(s): I25.10 - ATHSCL HEART DISEASE OF [place] CORONARY ARTERY W/O ANG PCTRS (4) Hypoxia Code(s): R09.02 - HYPOXEMIA (5) Hx of CABG Code(s): Z95.1 - PRESENCE OF AORTOCORONARY BYPASS GRAFT (6) Acute respiratory failure with hypoxia and hypercapnia Code(s): J96.01 - ACUTE RESPIRATORY FAILURE WITH HYPOXIA; J96.02 - ACUTE RESPIRATORY FAILURE WITH HYPERCAPNIA Assessment/Plan IMP ACUTE HYPOXEMIC/HYPERCAPNEIC RESPIRATORY FAILURE IMPROVING CHF ? PNEUMONIA ALTERED MENTAL STATUS IMPROVING ESRD ON HD H/O CARDIAC ARREST H/O COPD ASHD S/P CABG,S/P PPM HTN S/P TAVR ANEMIA PLAN O2 TO MAINTAIN O2 SAT >92% HD PER RENAL NIPPV IF PT DEVELOPES INCREASED RESPIRATORY DISTRESS/LETHARGY ABX S PER HARPAL CRESPO Problem List - Problems (1) Altered mental status Code(s): R41.82 - ALTERED MENTAL STATUS, UNSPECIFIED (2) ESRD (end stage renal disease) on dialysis Code(s): N18.6 - END STAGE RENAL DISEASE; Z99.2 - DEPENDENCE ON RENAL DIALYSIS (3) ASHD (arteriosclerotic heart disease) Code(s): I25.10 - ATHSCL HEART DISEASE OF [place] CORONARY ARTERY W/O ANG PCTRS (4) Hypoxia Code(s): R09.02 - HYPOXEMIA (5) Hx of CABG Code(s): Z95.1 - PRESENCE OF AORTOCORONARY BYPASS GRAFT (6) Acute respiratory failure with hypoxia and hypercapnia Code(s): J96.01 - ACUTE RESPIRATORY FAILURE WITH HYPOXIA; J96.02 - ACUTE RESPIRATORY FAILURE WITH HYPERCAPNIA
[2018-05-20] MEDS ORDERED: INSULIN (NOVOLOG) ASPART 100 UNITS/ML 10ML VIAL SQ ONE (21:26)
[2018-05-20] MEDS: INSULIN (LEVEMIR) 100 UNITS/ML UNITS SQ SCH (21:56)
[2018-05-20] MEDS: MELATONIN 1 MG TABLET PO SCH (22:03)
[2018-05-21] MEDS: INSULIN SLIDING SCALE (NOVOLOG) 1 VIAL SQ SCH ×2 (06:00→11:50)
[2018-05-21] MEDS ORDERED: SODIUM CHLORIDE 250 ML IV PRN (06:51)
[2018-05-21 08:01] LABS: HEMATOCRIT 28.8 % (35.4-49); MCH 29.8 pg (25.7-33.7); MCHC 31.3 g/dl (32.0-35.9); MEAN CELL VOLUME 95.2 fl (80-96); MEAN PLT VOLUME 11.1 fl (7.5-11.1); PLATELET COUNT 121 K/MM3 (134-434); RBC 3.02 M/mm3 (4.00-5.60); WHITE BLOOD COUNT 6.8 K/mm3 (4.0-10.0)
[2018-05-21 08:53] LABS: ANION GAP 8 MMOL/L (8-16); BLOOD UREA NITROGEN 45 mg/dL (7-18); CALCIUM 8.8 mg/dL (8.5-10.1); CHLORIDE 103 mmol/L (98-107); CO2 31 mmol/L (21-32); GLUCOSE,RANDOM 109 mg/dL (74-106); POTASSIUM 5.3 mmol/L (3.5-5.1); SODIUM 142 mmol/L (136-145)
--- NOTE | 2018-05-21 10:52 | PN ---
Progress Note (short form) - Note Progress Note: s: no cp sob palps dizzy o: Vital Signs Period Temp Pulse Resp BP Sys/Adams Pulse Ox Last 24 Hr 97.3 F-98.8 F 87-100 18-22 101-165/49-87 96 Constitutional: Yes: Well Nourished, No Distress Eyes: No: Sclera Icterus HENT: No: Nasal Congestion Neck: No: Decreased ROM Respiratory: Yes: CTA Bilaterally, Rales (both bases). No: Accessory Muscle Use Gastrointestinal: Yes: Normal Bowel Sounds. No: Distention, Hepatomegaly, Palpable Mass, Tenderness Cardiovascular: Yes: Regular Rate and Rhythm Heart Sounds: Yes: S1, S2. No: Gallop Murmur: No: Systolic Murmur, Diastolic Murmur Extremities: No: Cold, Cyanosis Edema: No Integumentary: No: Jaundice Psychiatric: No: Agitated Current Medications Generic Name Dose Route Start Last Admin Trade Name Freq PRN Reason Stop Dose Admin Acetaminophen 650 mg 05/19/18 22:45 05/19/18 22:52 Tylenol - PO 650 mg Q6H PRN Administration PAIN 1-3 Albuterol/Ipratropium 1 amp 05/16/18 13:02 Duoneb - NEB Q6H PRN SHORTNESS OF BREATH Calcitriol 0.25 mcg 05/17/18 10:00 05/20/18 09:45 Rocaltrol - PO 0.25 mcg DAILY [facility] Administration Carvedilol 6.25 mg 05/16/18 22:00 05/20/18 22:03 Coreg - PO 6.25 mg BID [facility] Administration Epoetin Edin 6,000 unit 05/21/18 11:00 05/21/18 07:59 Procrit - IVPUSH 05/21/18 11:01 6,000 unit ONCE ONE Administration Sodium Chloride 250 mls @ 3,000 mls/hr 05/21/18 06:51 Normal Saline - IV 05/22/18 06:50 PRN PRN Hypotension during Dialysis Insulin Aspart 1 vial 05/16/18 16:30 05/21/18 06:00 Novolog Vial Sliding Scale - SQ Not Given [facility] Protocol Insulin Detemir 10 units 05/16/18 22:00 05/20/18 21:56 Levemir Vial SQ Not Given HS [facility] Isosorbide Mononitrate 30 mg 05/17/18 10:00 05/20/18 09:45 Imdur - PO 30 mg DAILY [facility] Administration Lactulose 30 gm 05/16/18 15:45 05/20/18 09:44 Cephulac (Oral Use) PO 30 gm DAILY [facility] Administration Melatonin 3 mg 05/17/18 22:00 05/20/18 22:03 Melatonin PO 3 mg HS [facility] Administration Pantoprazole Sodium 40 mg 05/19/18 10:00 05/20/18 09:44 Protonix - PO 40 mg DAILY [facility] Administration Ranolazine 500 mg 05/16/18 22:00 05/20/18 22:03 Ranexa - PO 500 mg BID [facility] Administration Sevelamer Carbonate 800 mg 05/16/18 17:30 05/20/18 17:24 Renvela - PO 800 mg TIDCM [facility] Administration CBC, BMP 05/21/18 07:15 05/21/18 07:15 Assessment/Plan ECG: sinus, V-paced CXR x 2: no effusions. ? mild congestion Echo: mod reduced EF (35-40%). apical-septal severe HK, septal motion c/w conduction abnormality. nl RV. mod LAE. ? prior MV repair/annuloplasty ring, + thickened leaflets: severe mitral stenosis (tech mean gradient 12 mmHg), mild MR. mild TR. RVSP 30-40. CT head x 2 no acute pathology tele: sr, as-[employer] alt [place], lethargy: -recent admits to outside hosp for same. pt dtr states this is possibly unchanged from his baseline since cardiac arrest - manage per PMD acute hypoxemic resp failure: -not a new problem, felt to be due to chronic aspirations at outside hosp last month, with V/Q then negative. -pt with decreased EF and severe mitral stenosis--? CHF. CXR with reticulonodular infiltrates bilaterally, no effusions and elevated JVD c/w vol overload -vol mgmt per renal (ESRD on HD), sob improving acute syst CHF, s/p TAVR (2017), mitral stenosis: -EF 35-40%, on home coreg and imdur -cxr with suspicion for mild CHF -volume mgmt with HD -tarry stools noted, plavix was dc'ed CAD, reported h/o CABG: -nonspecific sx's (altered MS, lethargy) -ECG v-paced. trop neg. -cont home meds HTN: -bp somewhat labile here, increased this AM but had been generally stable - if remains elevated would restart home amlodipine, continue coreg, imdur -cont home meds ESRD on HD: -per renal anemia: -hgb 7s-8s here, no prior baseline available -guaiac positive -recurrent H/H drops at outside hosp 04/14 req transfusions per dtr - plavix held for tarry stool and anemia -GI on board--pt hi risk for scopes until acute issues resolve
[2018-05-21] MEDS ORDERED: EPOETIN ALFA 3,000 UNIT/1 ML ML IVPUSH ONE (11:00)
[2018-05-21] MEDS ORDERED: PT OWN MED DRAWER 7, Y5N ONE (11:39)
[2018-05-21] MEDS: RANOLAZINE E.R. 500 MG TABLET (FP) PO SCH (11:42)
[2018-05-21] MEDS: SEVELAMER CARBONATE 800 MG TAB (FP) PO SCH (11:42)
[2018-05-21] MEDS: CARVEDILOL 6.25 MG TABLET (FP) PO SCH (11:42)
[2018-05-21] MEDS: PANTOPRAZOLE 40 MG TABLET (FP) PO SCH (11:42)
[2018-05-21] MEDS: ISOSORBIDE MONONITRATE 30 MG TAB.SR.24H (FP) PO SCH (11:42)
[2018-05-21] MEDS: CALCITRIOL 0.25 MCG CAPSULE (FP) PO SCH (11:42)
[2018-05-21] MEDS: LACTULOSE 20 GM/30 ML UDC (FOR ORAL USE ONLY) PO SCH (11:43)
--- NOTE | 2018-05-21 11:44 | PN ---
Progress Note, Physician History of Present Illness: PULMONARY ALERT,ON HD,-RESP DISTRESS - Current Medication List Current Medications: Active Medications Acetaminophen (Tylenol -) 650 mg PO Q6H PRN PRN Reason: PAIN 1-3 Last Admin: 05/19/18 22:52 Dose: 650 mg Albuterol/Ipratropium (Duoneb -) 1 amp NEB Q6H PRN PRN Reason: SHORTNESS OF BREATH Calcitriol (Rocaltrol -) 0.25 mcg PO DAILY [facility] Last Admin: 05/20/18 09:45 Dose: 0.25 mcg Carvedilol (Coreg -) 6.25 mg PO BID [facility] Last Admin: 05/20/18 22:03 Dose: 6.25 mg Sodium Chloride (Normal Saline -) 250 mls @ 3,000 mls/hr IV PRN PRN PRN Reason: Hypotension during Dialysis Stop: 05/22/18 06:50 Insulin Aspart (Novolog Vial Sliding Scale -) 1 vial SQ TIDAC [facility]; Protocol Last Admin: 05/21/18 06:00 Dose: Not Given Insulin Detemir (Levemir Vial) 10 units SQ [facility] Last Admin: 05/20/18 21:56 Dose: Not Given Isosorbide Mononitrate (Imdur -) 30 mg PO DAILY [facility] Last Admin: 05/20/18 09:45 Dose: 30 mg Lactulose (Cephulac (Oral Use)) 30 gm PO DAILY [facility] Last Admin: 05/20/18 09:44 Dose: 30 gm Melatonin (Melatonin) 3 mg PO HS [facility] Last Admin: 05/20/18 22:03 Dose: 3 mg Pantoprazole Sodium (Protonix -) 40 mg PO DAILY [facility] Last Admin: 05/20/18 09:44 Dose: 40 mg Ranolazine (Ranexa -) 500 mg PO BID [facility] Last Admin: 05/20/18 22:03 Dose: 500 mg Sevelamer Carbonate (Renvela -) 800 mg PO TIDCM [facility] Last Admin: 05/20/18 17:24 Dose: 800 mg - Objective Vital Signs: Vital Signs Temperature 98.8 F 05/21/18 07:10 Pulse Rate 93 H 05/21/18 11:05 Respiratory Rate 18 05/21/18 11:05 Blood Pressure 140/55 L 05/21/18 11:05 O2 Sat by Pulse Oximetry (%) 96 05/20/18 21:00 Constitutional: Yes: Well Nourished, Calm Eyes: Yes: WNL HENT: Yes: WNL Neck: Yes: WNL Cardiovascular: Yes: Regular Rate and Rhythm, S1, S2 Respiratory: Yes: Rales (FEW BIBASILAR CRACKLES) Gastrointestinal: Yes: Normal Bowel Sounds, Soft Extremities: Yes: WNL Edema: No Labs: CBC, BMP 05/21/18 07:15 05/21/18 07:15 INR, PTT INR 1.50 (0.83-1.09) H 05/19/18 09:15 Problem List - Problems (1) Altered mental status Code(s): R41.82 - ALTERED MENTAL STATUS, UNSPECIFIED (2) ESRD (end stage renal disease) on dialysis Code(s): N18.6 - END STAGE RENAL DISEASE; Z99.2 - DEPENDENCE ON RENAL DIALYSIS (3) ASHD (arteriosclerotic heart disease) Code(s): I25.10 - ATHSCL HEART DISEASE OF [place] CORONARY ARTERY W/O ANG PCTRS (4) Hypoxia Code(s): R09.02 - HYPOXEMIA (5) Hx of CABG Code(s): Z95.1 - PRESENCE OF AORTOCORONARY BYPASS GRAFT (6) Acute respiratory failure with hypoxia and hypercapnia Code(s): J96.01 - ACUTE RESPIRATORY FAILURE WITH HYPOXIA; J96.02 - ACUTE RESPIRATORY FAILURE WITH HYPERCAPNIA Assessment/Plan IMP ACUTE HYPOXEMIC/HYPERCAPNEIC RESPIRATORY FAILURE IMPROVING CHF ? PNEUMONIA ALTERED MENTAL STATUS IMPROVING ESRD ON HD H/O CARDIAC ARREST H/O COPD ASHD S/P CABG,S/P PPM HTN S/P TAVR ANEMIA PLAN O2 TO MAINTAIN O2 SAT >92% HD PER RENAL NIPPV IF PT DEVELOPES INCREASED RESPIRATORY DISTRESS/LETHARGY DR CRESPO Problem List - Problems (1) Altered mental status Code(s): R41.82 - ALTERED MENTAL STATUS, UNSPECIFIED (2) ESRD (end stage renal disease) on dialysis Code(s): N18.6 - END STAGE RENAL DISEASE; Z99.2 - DEPENDENCE ON RENAL DIALYSIS (3) ASHD (arteriosclerotic heart disease) Code(s): I25.10 - ATHSCL HEART DISEASE OF [place] CORONARY ARTERY W/O ANG PCTRS (4) Hypoxia Code(s): R09.02 - HYPOXEMIA (5) Hx of CABG Code(s): Z95.1 - PRESENCE OF AORTOCORONARY BYPASS GRAFT (6) Acute respiratory failure with hypoxia and hypercapnia Code(s): J96.01 - ACUTE RESPIRATORY FAILURE WITH HYPOXIA; J96.02 - ACUTE RESPIRATORY FAILURE WITH HYPERCAPNIA
--- NOTE | 2018-05-21 11:53 | DS ---
Physical Examination Vital Signs: Vital Signs Temperature 98.8 F 05/21/18 07:10 Pulse Rate 93 H 05/21/18 11:05 Respiratory Rate 18 05/21/18 11:05 Blood Pressure 140/55 L 05/21/18 11:05 O2 Sat by Pulse Oximetry (%) 96 05/20/18 21:00 Constitutional: Yes: No Distress, Calm Cardiovascular: Yes: Regular Rate and Rhythm, Murmur Respiratory: Yes: Diminished Gastrointestinal: Yes: Normal Bowel Sounds, Soft. No: Tenderness Edema: No Labs: CBC, BMP 05/21/18 07:15 05/21/18 07:15 Discharge Summary Reason For Visit: ALTERED MENTAL STATUS, CHF decompensation, ESRD Current Active Problems ASHD (arteriosclerotic heart disease) (Acute) Acute on chronic respiratory failure with hypoxia and hypercapnia (Acute) Acute respiratory failure with hypoxia and hypercapnia (Acute) Altered mental status (Acute) Anemia (Acute) ESRD (end stage renal disease) on dialysis (Acute) Hx of CABG (Acute) Hypoxia (Acute) Hospital Course: Admitted for AMS, volume overload, CHF decompensation Course complicated by tarry stools-- HCT better after transfusion 1 unit PRBC Seen by GI, renal , Cardiology PLavix discontinued as it has been more than 6 months post surgery for valve. Pt is at baseline mentation vitals stable stable for dc to [facility] hold off BP meds prior to dialysis Condition: Improved - Instructions Diet, Activity, Other Instructions: Hold BP meds prior to dialysis, pt needs rehab, swallow evaluation Referrals: Lynn Wall MD [Primary Care Provider] - [facility]position: [facility] - Home Medications Comprehensive Discharge Medication List: Ambulatory Orders Albuterol 2.5/Ipratropium 0.5 [Duoneb -] 1 amp NEB PRN 05/15/18 Amlodipine Besylate 5 mg PO DAILY 05/15/18 Aspirin [ASA -] 81 mg PO DAILY 05/15/18 B Complex with Vitamin C [B-Complex Plus Vitamin C] 1 each PO DAILY 05/15/18 Calcitriol [Rocaltrol -] 0.25 mcg PO DAILY 05/15/18 Carvedilol [Coreg] 6.25 mg PO 05/15/18 Clopidogrel Bisulfate [Plavix] 75 mg PO 05/15/18 Darbepoetin Edin [Aranesp] 100 mcg SQ WEEKLY 05/15/18 Folic Acid 1 mg PO DAILY 05/15/18 Furosemide 100 mg PO BID 05/15/18 Guaifenesin 100 mg PO Q6H PRN 05/15/18 Insulin Glargine,Hum.rec.anlog [Lantus] 10 unit SQ HS 05/15/18 Insulin Lispro [Humalog] 3 unit SQ TIDCM 05/15/18 Isosorbide Mononitrate [Isosorbide Mononitrate ER] 30 mg PO 05/15/18 Pregabalin [Lyrica -] 100 mg PO 05/15/18 Ranolazine [Ranexa] 500 mg PO BID 05/15/18 Sevelamer Carbonate [Renvela] 800 mg PO 05/15/18 Simvastatin [Zocor -] 10 mg PO 05/15/18
[2018-05-21 13:30] VITALS: BP 118/68; PULSE 102; TEMP 97.9
--- NOTE | 2018-05-21 14:43 | PN ---
Progress Note, Physician History of Present Illness: Pt seen and examined at bedside. He is awake and appears comfortable. He denies shortness of breath. - Current Medication List Current Medications: Active Medications Acetaminophen (Tylenol -) 650 mg PO Q6H PRN PRN Reason: PAIN 1-3 Last Admin: 05/19/18 22:52 Dose: 650 mg Albuterol/Ipratropium (Duoneb -) 1 amp NEB Q6H PRN PRN Reason: SHORTNESS OF BREATH Calcitriol (Rocaltrol -) 0.25 mcg PO DAILY [facility] Last Admin: 05/21/18 11:42 Dose: 0.25 mcg Carvedilol (Coreg -) 6.25 mg PO BID [facility] Last Admin: 05/21/18 11:42 Dose: 6.25 mg Sodium Chloride (Normal Saline -) 250 mls @ 3,000 mls/hr IV PRN PRN PRN Reason: Hypotension during Dialysis Stop: 05/22/18 06:50 Insulin Aspart (Novolog Vial Sliding Scale -) 1 vial SQ TIDAC [facility]; Protocol Last Admin: 05/21/18 11:50 Dose: 2 units Insulin Detemir (Levemir Vial) 10 units SQ HS [facility] Last Admin: 05/20/18 21:56 Dose: Not Given Isosorbide Mononitrate (Imdur -) 30 mg PO DAILY [facility] Last Admin: 05/21/18 11:42 Dose: 30 mg Lactulose (Cephulac (Oral Use)) 30 gm PO DAILY [facility] Last Admin: 05/21/18 11:43 Dose: 30 gm Melatonin (Melatonin) 3 mg PO HS [facility] Last Admin: 05/20/18 22:03 Dose: 3 mg Pantoprazole Sodium (Protonix -) 40 mg PO DAILY [facility] Last Admin: 05/21/18 11:42 Dose: 40 mg Ranolazine (Ranexa -) 500 mg PO BID [facility] Last Admin: 05/21/18 11:42 Dose: 500 mg Sevelamer Carbonate (Renvela -) 800 mg PO TIDCM [facility] Last Admin: 05/20/18 17:24 Dose: 800 mg - Objective Vital Signs: Vital Signs Temperature 97.9 F 05/21/18 13:28 Pulse Rate 102 H 05/21/18 13:28 Respiratory Rate 18 05/21/18 13:28 Blood Pressure 118/68 05/21/18 13:28 O2 Sat by Pulse Oximetry (%) 98 05/21/18 09:00 Constitutional: Yes: Calm Eyes: Yes: Conjunctiva Clear HENT: Yes: Atraumatic Neck: Yes: Supple Cardiovascular: Yes: S1, S2 Respiratory: Yes: CTA Bilaterally, On Nasal O2 Genitourinary: Yes: Incontinence Musculoskeletal: Yes: Muscle Weakness Edema: No Neurological: Yes: Pre-Existing Deficit Labs: CBC, BMP 05/21/18 07:15 05/21/18 07:15 INR, PTT INR 1.50 (0.83-1.09) H 05/19/18 09:15 Problem List - Problems (1) Altered mental status Code(s): R41.82 - ALTERED MENTAL STATUS, UNSPECIFIED (2) ESRD (end stage renal disease) on dialysis Code(s): N18.6 - END STAGE RENAL DISEASE; Z99.2 - DEPENDENCE ON RENAL DIALYSIS Assessment/Plan Current Medications Generic Name Dose Route Start Last Admin Trade Name Freq PRN Reason Stop Dose Admin Acetaminophen 650 mg 05/19/18 22:45 05/19/18 22:52 Tylenol - PO 650 mg Q6H PRN Administration PAIN 1-3 Albuterol/Ipratropium 1 amp 05/16/18 13:02 Duoneb - NEB Q6H PRN SHORTNESS OF BREATH Calcitriol 0.25 mcg 05/17/18 10:00 05/21/18 11:42 Rocaltrol - PO 0.25 mcg DAILY [facility] Administration Carvedilol 6.25 mg 05/16/18 22:00 05/21/18 11:42 Coreg - PO 6.25 mg BID [facility] Administration Sodium Chloride 250 mls @ 3,000 mls/hr 05/21/18 06:51 Normal Saline - IV 05/22/18 06:50 PRN PRN Hypotension during Dialysis Insulin Aspart 1 vial 05/16/18 16:30 05/21/18 11:50 Novolog Vial Sliding Scale - SQ 2 units TIDAC [facility] Administration Protocol Insulin Detemir 10 units 05/16/18 22:00 05/20/18 21:56 Levemir Vial SQ Not Given HS [facility] Isosorbide Mononitrate 30 mg 05/17/18 10:00 05/21/18 11:42 Imdur - PO 30 mg DAILY [facility] Administration Lactulose 30 gm 10/20/18 15:45 05/21/18 11:43 Cephulac (Oral Use) PO 30 gm DAILY [facility] Administration Melatonin 3 mg 05/17/18 22:00 05/20/18 22:03 Melatonin PO 3 mg HS [facility] Administration Pantoprazole Sodium 40 mg 05/19/18 10:00 05/21/18 11:42 Protonix - PO 40 mg DAILY [facility] Administration Ranolazine 500 mg 05/16/18 22:00 05/21/18 11:42 Ranexa - PO 500 mg BID [facility] Administration Sevelamer Carbonate 800 mg 05/16/18 17:30 05/20/18 17:24 Renvela - PO 800 mg TIDCM [facility] Administration Impression 1. ESRD 2. hypoxia 3. CAD 4. hx of cardiac arrest 5. lethargy 6. DM 7. HLD 8. anemia Plan - pt tolerated HD - monitor Hg - he has HD set up as outpt - volume status improved - mental status is improving - will follow Dr Toth
== END 2018-05-21 15:44 | DRG 291 ==
LOC: JER 06:01 → JERBED 09:57 → J4S 16:36
PROVIDERS: ADMIT Internal Medicine; ATTEND Internal Medicine
PROC: 5A1D70Z Performance of Urinary Filtration, Intermittent, Less than 6 Hours Per Day (ICD-10-PCS; principal; 2018-05-14)
PROC: 30233N1 Transfusion of Nonautologous Red Blood Cells into Peripheral Vein, Percutaneous Approach (ICD-10-PCS; 2018-05-14)
PROC: 5A1D70Z Performance of Urinary Filtration, Intermittent, Less than 6 Hours Per Day (ICD-10-PCS; 2018-05-16)
PROC: 5A1D70Z Performance of Urinary Filtration, Intermittent, Less than 6 Hours Per Day (ICD-10-PCS; 2018-05-19)
PROC: 5A1D70Z Performance of Urinary Filtration, Intermittent, Less than 6 Hours Per Day (ICD-10-PCS; 2018-05-21)
DX: I13.2 Hypertensive heart and chronic kidney disease with heart failure and with stage 5 chronic kidney disease, or end stage renal disease (principal); J96.01 Acute respiratory failure with hypoxia; J96.02 Acute respiratory failure with hypercapnia; N18.6 End stage renal disease; I50.21 Acute systolic (congestive) heart failure; G92 Toxic encephalopathy; R41.82 Altered mental status, unspecified; I25.10 Atherosclerotic heart disease of native coronary artery without angina pectoris; D64.9 Anemia, unspecified; E78.5 Hyperlipidemia, unspecified; I34.0 Nonrheumatic mitral (valve) insufficiency; E11.22 Type 2 diabetes mellitus with diabetic chronic kidney disease; J44.9 Chronic obstructive pulmonary disease, unspecified; F03.90 Unspecified dementia, unspecified severity, without behavioral disturbance, psychotic disturbance, mood disturbance, and anxiety; I27.20 Pulmonary hypertension, unspecified; Z95.0 Presence of cardiac pacemaker; Z89.421 Acquired absence of other right toe(s); Z95.2 Presence of prosthetic heart valve; Z99.2 Dependence on renal dialysis; Z95.1 Presence of aortocoronary bypass graft
CPT/HCPCS: 36415; 36430; 36600; 70450-TC; 71045-TC-FY; 74177-TC; 80048; 80053; 81003; 81015; 82140; 82272; 82375; 82465; 82550; 82803; 82962; 83050; 83605; 83718; 83721; 84478; 84484; 85025; 85027; 85610; 85730; 86704; 86706; 86708; 86803; 86850; 86900; 86901; 86922; 87040; 87086; 87340; 93005; 93010; 93306-TC; 93970-TC; 97116-GP; 97162-GP; 99285-25; J0885; J7030; P9038; P9058

== ENCOUNTER 2018-06-01 18:40 | Observation (INO) | payer OTHER ==
--- NOTE | 2018-06-01 19:13 | PDOC ---
History of Present Illness - General Chief Complaint: Chest Pain Stated Complaint: CHEST PAIN History Source: Patient - History of Present Illness Initial Comments: 06/01/18 19:28 HPI obtained from patient, EMR and [facility] Paperwork. The patient is a 78 year old male with a PMH of ESRD (on HD T, Th, Sat), COPD, HTN, HLD and DM who presents to our ED c/o chest pain during his dialysis session this evening. States pain is R sided, 10/10, non-radiating and associated with some shortness of breath and came on suddenly during HD. States the pain is similar to the pain prior to his bypass surgery. The patient denies abdominal pain, nausea/vomiting, diarrhea/constipation, numbness, tingling, lightheadedness, palpitations. Allergy: Iodine Surgical: CABG, Pacemaker PMD: Dr. Carlos Fishman M.D. As per EMR, patient was evaluated in our ED in 04/2018 for AMS at which time head CT was negative and his symptoms improved with dialysis. He was admitted for concurrent CHF decompensation. H/o black tarry stools and transfusion during admission, family declined endoscopy/colonscopy. Also as per EMR, he has been in and out of [facility] over the last few months and his medical history includes a recent cardiac arrest. Pacemaker interrogated in March 2018. Past History - Past Medical History Allergies/Adverse Reactions: Allergies Allergy/AdvReac Type Severity Reaction Status Date / Time iodine Allergy Hives Verified 05/15/18 13:08 Home Medications: Ambulatory Orders Albuterol 2.5/Ipratropium 0.5 [Duoneb -] 1 amp NEB PRN 05/15/18 Amlodipine Besylate 5 mg PO DAILY 05/15/18 B Complex with Vitamin C [B-Complex Plus Vitamin C] 1 each PO DAILY 05/15/18 Calcitriol [Calcitriol -] 0.25 mcg PO DAILY 05/15/18 Darbepoetin Edin [Aranesp -] 100 mcg SQ WEEKLY 05/15/18 Folic Acid 1 mg PO DAILY 05/15/18 Guaifenesin 100 mg PO Q6H PRN 05/15/18 Insulin Glargine,Hum.rec.anlog [Lantus] 10 unit SQ HS 05/15/18 Ranolazine [Ranexa] 500 mg PO BID 05/15/18 Simvastatin [Zocor -] 10 mg PO 05/15/18 Carvedilol [Coreg -] 6.25 mg PO BID #60 tablet 05/21/18 Isosorbide Mononitrate [Imdur -] 30 mg PO DAILY #60 tab.sr.24h 05/21/18 Lactulose (Oral Use) [Cephulac -] 30 gm PO DAILY #30 udc 05/21/18 Pantoprazole Sodium [Protonix -] 40 mg PO DAILY #30 tablet.ec 05/21/18 Sevelamer Carbonate [Renvela -] 800 mg PO TIDCM #60 tab 05/21/18 Cardiac Disorders: Yes COPD: Yes Diabetes: Yes HTN: Yes Hypercholesterolemia: Yes - Surgical History Cardiac Surgery: Yes (PACEMAKER) - Suicide/Smoking/Psychosocial Hx Smoking History: Unknown if ever smoked Hx Alcohol Use: No Drug/Substance Use Hx: No Review of Systems - Review of Systems Constitutional: No: Chills, Fever HEENTM: No: Blurred Vision, Double Vision Respiratory: Yes: Shortness of Breath. No: Cough, Wheezing Cardiac (ROS): Yes: Chest Pain. No: Lightheadedness, Palpitations, Syncope ABD/GI: No: Constipated, Diarrhea, Nausea, Vomiting *Physical Exam - Vital Signs Last Vital Signs Temp Pulse Resp BP Pulse Ox 97.1 F L 87 20 140/58 L 100 06/01/18 18:41 06/01/18 18:41 06/01/18 18:41 06/01/18 18:41 06/01/18 18:41 - Physical Exam General Appearance: Yes: Nourished, Thin Neck: positive: Trachea midline, Supple Respiratory/Chest: positive: Lungs Clear, Normal Breath Sounds. negative: Rapid RR, Crackles, Wheezing Cardiovascular: positive: S1, S2. negative: Edema, JVD Vascular Pulses: Dorsalis-Pedis (R): 2+, Doralis-Pedis (L): 2+ Gastrointestinal/Abdominal: positive: Normal Bowel Sounds, Soft Extremity: positive: Normal Capillary Refill, Normal Inspection Integumentary: positive: Normal Color, Dry, Warm Neurologic: positive: Alert Heart Score/ECG Review - ECG Impressions Comment:: 06/01/18 23:48 Atrial paced rhythm @ 87 BPM, no SHAYNE/STD/TWI, non-ischemic ECG; c/w previous ECG dated 04/2018 ED Treatment Course - LABORATORY CBC & Chemistry Diagram: 06/01/18 22:00 06/01/18 22:00 Medical Decision Making - Medical Decision Making 06/01/18 19:32 78 year old male presents with chest pain. Pain started during HD. VS unremarkable. Frontal diagnosis: r/o ACS, CHF, costochondritis, muskoskeletal, PNA. Will obtain CBC, CMP, Troponin x2, ECG, CXR. Cardiac monitoring. Reassess. 06/01/18 22:01 ECG documented in ECG section of EMR, non-ischemic, c/w previous ECG. 06/01/18 22:55 Patient states his chest is intermittent, Repeat BP @ bedside 143/56. Sublingual Nitro Cardiac monitoring. Labs pending. CXR shows PVC 06/01/18 23:06 Trop (-) x1 Hb stable @ 10 (last Hb 9 in 04/2018) BNP elevated @ 24,178 (no previous BNP) BUN/Cr elevated c/w ESRD Will admit patient for CHF exacerbation + ACS r/o 06/01/18 23:09 Hospitalist microblogged for admission 06/01/18 23:52 Case d/w FILI Jorgensen. Will admit to OBS tele. Repeat Troponin scheduled for 0100. Chest pain improving, VSS Clinical Impression: possible CHF exacerbation, r/o ACS *DC/Admit/Observation/Transfer Diagnosis at time of Disposition: Chest pain - Discharge Dispostion Condition at time of disposition: Fair Decision to Admit order: Yes - Referrals - Patient Instructions - Post Discharge Activity
[2018-06-01 22:10] LABS: BASO % 1.1 % (0-2.0); EOS % 2.4 % (0-4.5); HEMATOCRIT 30.2 % (35.4-49); LYMPH % 13.6 % (8-40); MCH 30.3 pg (25.7-33.7); MCHC 33.2 g/dl (32.0-35.9); MEAN CELL VOLUME 91.4 fl (80-96); MEAN PLT VOLUME 9.9 fl (7.5-11.1); MONO % 7.8 % (3.8-10.2); NEUT % 75.1 % (42.8-82.8); PLATELET COUNT 142 K/MM3 (134-434); RBC 3.31 M/mm3 (4.00-5.60); RDW 18.3 % (11.9-15.9); WHITE BLOOD COUNT 5.5 K/mm3 (4.0-10.0)
[2018-06-01 22:50] LABS: ALBUMIN 2.6 g/dl (3.4-5.0); ALK PHOS 109 U/L (45-117); ANION GAP 12 MMOL/L (8-16); BILIRUBIN,TOTAL 0.8 mg/dL (0.2-1); BLOOD UREA NITROGEN 30 mg/dL (7-18); CALCIUM 8.2 mg/dL (8.5-10.1); CHLORIDE 97 mmol/L (98-107); CO2 28 mmol/L (21-32); CREATININE 5.5 mg/dL (0.55-1.3); GLUCOSE,RANDOM 83 mg/dL (74-106); N-TERMINAL BNP 24178.5 pg/ml (5-450); POTASSIUM 3.7 mmol/L (3.5-5.1); SGOT/AST 10 U/L (15-37); SGPT/ALT 15 U/L (13-61); SODIUM 136 mmol/L (136-145); TOT PROT 6.3 g/dl (6.4-8.2)
[2018-06-01] MEDS ORDERED: NITROGLYCERIN SUBLINGUAL 1/200 0.3 MG BTL SL ONE (22:50)
--- NOTE | 2018-06-01 23:01 | PDOC ---
Attending Attestation - Resident Resident Name: Perlita Forrest - ED Attending Attestation I have performed the following: I have examined & evaluated the patient, The case was reviewed & discussed with the resident, I agree w/resident's findings & plan, Exceptions are as noted - HPI HPI: 06/01/18 22:57 The patient is a 78 year old male, with a significant past medical history of ESRD (on HD M, W, F), COPD, cardiac arrest (February 2018), hypertension, hyperlipidemia, CAD, and pacemaker, who presents to the emergency department with right sided, 10/10 chest pain with associated SOB which started at the end of his dialysis session today. He states this pain is similar to the pain he experienced prior to his bypass surgery. He states he almost completed a full dialysis session when he developed his symptoms. He denies radiation of pain. He denies pain with breathing. The patient denies headache and dizziness. The patient denies fever, chills, nausea, vomit, diarrhea and constipation. The patient denies dysuria, frequency , urgency and hematuria. Allergies: NKDA Past surgical history: cardiac bypass, pacemaker - Physicial Exam PE: 06/01/18 23:00 GENERAL: Awake, alert, and fully oriented, in no acute distress. HEAD: No signs of trauma EYES: PERRLA, EOMI, sclera anicteric, conjunctiva clear ENT: Auricles normal inspection, hearing grossly normal, nares patent, oropharynx clear without exudates. Moist mucosa NECK: Nontender, no stepoffs, Normal ROM, supple, no lymphadenopathy, JVD, or masses LUNGS: Breath sounds equal, clear to auscultation bilaterally. No wheezes, and no crackles HEART: Regular rate and rhythm, normal S1 and S2, no murmurs, rubs or gallops ABDOMEN: Soft, nontender, normoactive bowel sounds. No guarding, no rebound. No masses EXTREMITIES: Normal range of motion, no edema. No clubbing or cyanosis. No cords, erythema, or tenderness NEUROLOGICAL: Cranial nerves II through XII intact. 5/5 strength and sensation in all extremities, Normal speech, normal gait, normal cerebellar function SKIN: Warm, Dry, normal turgor, no rashes or lesions noted. - Medical Decision Making 06/01/18 23:00 78 M with CP and SOB. Has significant cardiac history and will need ACS r/o. EKG however is reassuring - paced, unchanged since prior. - Labs, trop - CXR - Nitro sublingual - admit tele
[2018-06-01] MEDS ORDERED: NITROGLYCERIN SUBLINGUAL 1/150 0.4 MG TAB ONE (23:57)
--- NOTE | 2018-06-02 00:27 | HP ---
CHIEF COMPLAINT: chest pain PCP: Darwin/Nena KAUR HISTORY OF PRESENT ILLNESS: This is a 78 year old male with a past medical history significant for HTN, HLD , CAD, recent cardiac arrest, DM, ESRD who presented to the ED with chest pain that began during dialysis today. Pt also reports SOB. Reports feeling a little better with oxygen and after NTG SL. of note, he was hospitalized here from -05/21 for AMS, volume overload, CHF, tarry stools. ER course was notable for: (1) trop neg x 1 (2) BNP 91226 (3) Recent Travel: pt denies PAST MEDICAL HISTORY: HTN, HLD, CAD, Cardiac arrest approx 2 months ago, DM, ESRD, COPD, mitral insufficiency PAST SURGICAL HISTORY: PPM CABG 2013, stents prior to CABG R toe amputation R AVF L AVF nonfunctional TAVR 2016 Social History: Smoking: pt denies Alcohol: pt denies Drugs: pt denies Family History: unknown Allergies iodine Allergy (Verified 05/15/18 13:08) Hives SOB HOME MEDICATIONS: 3 Medication Instructions Recorded Albuterol 2.5/Ipratropium 0.5 1 amp NEB PRN 05/15/18 [Duoneb -] Amlodipine Besylate 5 mg PO DAILY 05/15/18 B Complex with Vitamin C 1 each PO DAILY 05/15/18 [B-Complex Plus Vitamin C] Calcitriol [Calcitriol -] 0.25 mcg PO DAILY 05/15/18 Darbepoetin Edin [Aranesp -] 100 mcg SQ WEEKLY 05/15/18 Folic Acid 1 mg PO DAILY 05/15/18 Guaifenesin 100 mg PO Q6H PRN 05/15/18 Insulin Glargine,Hum.rec.anlog 10 unit SQ HS 05/15/18 [Lantus] Ranolazine [Ranexa] 500 mg PO BID 05/15/18 Simvastatin [Zocor -] 10 mg PO 05/15/18 Carvedilol [Coreg -] 6.25 mg PO BID #60 tablet 05/21/18 Isosorbide Mononitrate [Imdur -] 30 mg PO DAILY #60 tab.sr.24h 05/21/18 Lactulose (Oral Use) [Cephulac -] 30 gm PO DAILY #30 udc 05/21/18 Pantoprazole Sodium [Protonix -] 40 mg PO DAILY #30 tablet.ec 05/21/18 Sevelamer Carbonate [Renvela -] 800 mg PO TIDCM #60 tab 05/21/18 REVIEW OF SYSTEMS CONSTITUTIONAL: Absent: fever, chills, diaphoresis, generalized weakness, malaise, loss of appetite, weight change HEENT: Absent: rhinorrhea, nasal congestion, throat pain, throat swelling, difficulty swallowing, mouth swelling, ear pain, eye pain, visual changes CARDIOVASCULAR: Present: chest pain Absent: syncope, palpitations, irregular heart rate, lightheadedness, peripheral edema RESPIRATORY: Present: shortness of breath Absent: cough, wheezing, stridor, hemoptysis GASTROINTESTINAL: Absent: abdominal pain, abdominal distension, nausea, vomiting, diarrhea, constipation, melena, hematochezia GENITOURINARY: Absent: dysuria, frequency, urgency, hesitancy, hematuria, flank pain, genital pain MUSCULOSKELETAL: Absent: myalgia, arthralgia, joint swelling, back pain, neck pain SKIN: Absent: rash, itching, pallor HEMATOLOGIC/IMMUNOLOGIC: Absent: easy bleeding, easy bruising, lymphadenopathy, frequent infections ENDOCRINE: Absent: unexplained weight gain, unexplained weight loss, heat intolerance, cold intolerance NEUROLOGIC: Absent: headache, focal weakness or paresthesias, dizziness, unsteady gait, seizure, mental status changes, bladder or bowel incontinence PSYCHIATRIC: Absent: anxiety, depression, suicidal or homicidal ideation, hallucinations. PHYSICAL EXAMINATION Vital Signs - 24 hr 3 06/01/18 18:41 Temperature 97.1 F L Pulse Rate 87 Respiratory 20 Rate Blood Pressure 140/58 L O2 Sat by Pulse 100 Oximetry (%) GENERAL: Awake, alert, and oriented to person, place, and year, thinks it is april, in no acute distress. HEAD: Normal with no signs of trauma. EYES: Pupils equal, round and reactive to light, extraocular movements intact, sclera anicteric, conjunctiva clear. No lid lag. EARS, NOSE, THROAT: Ears normal, nares patent, oropharynx clear without exudates. Moist mucous membranes. NECK: Normal range of motion, supple without lymphadenopathy, JVD, or masses. LUNGS: Breath sounds equal, diminished bases, otherwise clear to auscultation bilaterally. No wheezes, and no crackles. No accessory muscle use. HEART: Regular rate and rhythm, normal S1 and S2 without murmur, rub or gallop. ABDOMEN: Soft, nontender, not distended, normoactive bowel sounds, no guarding, no rebound, no masses. No hepatomegaly or splenomegaly. MUSCULOSKELETAL: Normal range of motion at all joints. No bony deformities or tenderness. No CVA tenderness. UPPER EXTREMITIES: 2+ pulses, warm, well-perfused. No cyanosis. No clubbing. No peripheral edema. LOWER EXTREMITIES: 2+ pulses, warm, well-perfused. No calf tenderness. No peripheral edema. NEUROLOGICAL: Cranial nerves II-XII intact. Normal speech. PSYCHIATRIC: Cooperative. Good eye contact. Appropriate mood and affect. SKIN: Warm, dry, normal turgor, no rashes or lesions noted, normal capillary refill. Laboratory Results - last 24 hr 3 06/01/18 06/01/18 22:00 22:00 WBC 5.5 RBC 3.31 L Hgb 10.0 L Hct 30.2 L MCV 91.4 MCH 30.3 MCHC 33.2 RDW 18.3 H Plt Count 142 MPV 9.9 D Absolute Neuts (auto) 4.1 Neutrophils % 75.1 Lymphocytes % 13.6 D Monocytes % 7.8 Eosinophils % 2.4 Basophils % 1.1 Nucleated RBC % 0 Sodium 136 Potassium 3.7 Chloride 97 L Carbon Dioxide 28 Anion Gap 12 BUN 30 H Creatinine 5.5 H Creat Clearance w eGFR 10.16 Random Glucose 83 Calcium 8.2 L Total Bilirubin 0.8 AST 10 L ALT 15 Alkaline Phosphatase 109 Creatine Kinase 52 Troponin I 0.04 B-Natriuretic Peptide 82295.5 H Total Protein 6.3 L Albumin 2.6 L ECG atrial sensed ventricular paced rhythm with prolonged AV conduction vent rate 87 Radiology Reports Chest, portable Impression: Interval slightly better aeration of the lung. There remains increased interstitial markings that may represent mild pulmonary venous congestion Reported By: Dominique Daniels MD 06/01/18 [id number] ASSESSMENT/PLAN: 78yM with PMH HTN, HLD, CAD, Cardiac arrest approx 2 months ago, DM, ESRD, COPD , mitral insufficiency presented to the ED with chest pain. chest pain - monitor on tele - trop neg x 1, trend x 2 more - cardiology consult - cont home imdur and ranexa, consider increasing imdur to 60mg, defer to cardio HTN/HLD - cont home coreg, norvasc; home zocor changed to formulary lipitor - LDL cholesterol 32 on last admission DM - home lantus changed to formulary levemir - BGM AC/HS with novolog sliding scale ESRD - renal consult COPD - cont home meds, no s/s exac at present DVT PPX - heparin deferred, anticipated LOS <48h, reassess if stay exceeds FEN - pt tolerating po - bmp in am - puree low sodium diet as tolerated Dispo: pt currently requires further observation. Visit type - Emergency Visit Emergency Visit: Yes ED Registration Date: 06/01/18 Care time: The patient presented to the Emergency Department on the above date and was hospitalized for further evaluation of their emergent condition. - New Patient This patient is new to me today: Yes Date on this admission: 06/02/18 - Critical Care Critical Care patient: No
[2018-06-02] MEDS ORDERED: ALBUTEROL SO4 2.5/IPRATROPIUM 0.5 INH SOL 3 ML VIAL.NEB. NEB SCH (01:45)
[2018-06-02 02:15] LABS: INR 1.43 (0.83-1.09); PROTHROMBIN TIME (PATIENT) 16.9 SEC (9.7-13.0)
[2018-06-02 02:17] LABS: ACTIVATED PTT 31.8 SECONDS (25.2-36.5)
[2018-06-02] MEDS ORDERED: ALBUTEROL SO4 2.5/IPRATROPIUM 0.5 INH SOL 3 ML VIAL.NEB. NEB ONE (08:24)
[2018-06-02] MEDS: INSULIN SLIDING SCALE (NOVOLOG) 1 VIAL SQ SCH ×4 (08:28→22:05)
[2018-06-02] MEDS: ALBUTEROL SO4 2.5/IPRATROPIUM 0.5 INH SOL 3 ML VIAL.NEB. NEB SCH ×4 (08:28→20:24)
[2018-06-02] MEDS: BUDESONIDE 0.5 MG/2 ML INH SUSP VIAL NEB SCH ×2 (08:29→20:24)
[2018-06-02] MEDS: SEVELAMER CARBONATE 800 MG TAB (FP) PO SCH ×3 (08:29→17:29)
[2018-06-02] MEDS: PANTOPRAZOLE 40 MG TABLET (FP) PO SCH (09:11)
[2018-06-02] MEDS: ISOSORBIDE MONONITRATE 30 MG TAB.SR.24H (FP) PO SCH (09:11)
[2018-06-02] MEDS: LACTULOSE 20 GM/30 ML UDC (FOR ORAL USE ONLY) PO SCH (09:11)
[2018-06-02] MEDS: CARVEDILOL 6.25 MG TABLET (FP) PO SCH ×2 (09:11→21:55)
[2018-06-02] MEDS: FOLIC ACID 1 MG TABLET (FP) PO SCH (09:11)
[2018-06-02] MEDS: VITAMIN B COMPLEX W/C COMBO TABLET (FP) PO SCH (09:11)
[2018-06-02] MEDS: RANOLAZINE E.R. 500 MG TABLET (FP) PO SCH ×2 (09:11→22:00)
--- NOTE | 2018-06-02 09:14 | CON.CARD ---
Cardiology Consult (text) - Consultation Consultation Note: Consult Consult Specialty:: cardio - History of Present Illness History of Present Illness: 77 h/o CAD s/p CABG 2013, TAVR 2017, PPM, chronic systolic HF, ESRD on HD, cardiac arrest p/w chest pain. Recently admitted for alt mental status , CHF and anemia. Chest pain, right sided, not radiating. not sure how long it lasted but thinks it was on and off. occurred during dialysis day prior to admission, also complained of dyspnea. Improved with oxygen and SLNG. this morning feels well, no chest pain, palps, dizzy, dyspnea, edema. PMH: CAD/prior CABG chronic systolic CHF PPM recent cardiac arrest ESRD on HD HTN COPD - Past Medical History Cardio/Vascular: Yes: CAD, CHF, HTN, Mitral Insufficiency, Other (CABG, PPM) Pulmonary: Yes: COPD Renal/: Yes: Renal Failure (ESRD on HD), Hemodialysis - Past Surgical History Past Surgical History: Yes: Amputation (right toe amputations), AV Fistula/ Graft (x 2. left arm non-functional), CABG, Permanent Pacemaker, Valve Replacement (TAVR) Additional Surgical History: TAVR - Alcohol/Substance Use Hx Alcohol Use: Yes (social) History of Substance Use: reports: None - Smoking History Smoking history: Unknown if ever smoked - Social History Usual Living Arrangement: [facility] ADL: Support Services Home Medications - Allergies Allergies/Adverse Reactions: Allergies Allergy/AdvReac Type Severity Reaction Status Date / Time iodine Allergy Hives Verified 05/15/18 13:08 Home Medications Medication Instructions Recorded Albuterol 2.5/Ipratropium 0.5 1 amp NEB Q6H 05/15/18 [Duoneb -] Amlodipine Besylate 5 mg PO HS 05/15/18 B Complex with Vitamin C 1 each PO DAILY 05/15/18 [B-Complex Plus Vitamin C] Folic Acid 1 mg PO DAILY 05/15/18 Insulin Glargine,Hum.rec.anlog 10 unit SQ HS 05/15/18 [Lantus] Ranolazine [Ranexa] 500 mg PO BID 05/15/18 Simvastatin [Zocor -] 10 mg PO HS 05/15/18 Carvedilol [Coreg -] 6.25 mg PO BID #60 tablet 05/21/18 Isosorbide Mononitrate [Imdur -] 30 mg PO DAILY #60 tab.sr.24h 05/21/18 Lactulose (Oral Use) [Cephulac -] 30 gm PO DAILY #30 udc 05/21/18 Pantoprazole Sodium [Protonix -] 40 mg PO DAILY #30 tablet.ec 05/21/18 Sevelamer Carbonate [Renvela -] 800 mg PO TIDCM #60 tab 05/21/18 Acetaminophen 650 mg PO Q6H PRN 06/02/18 Budesonide [Pulmicort 0.5 mg 0.5 mg NEB BID 06/02/18 Nebulizer -] Darbepoetin Edin [Aranesp] 100 mcg SQ WEEKLY 06/02/18 Vitamin B Complex 1 each PO DAILY 06/02/18 Family Disease History - Family Disease History Family History: Denies (no cmp) Review of Systems Unable to obtain ROS, reason: pt poor historian Vital Signs: Vital Signs Period Temp Pulse Resp BP Sys/Adams Pulse Ox Last 24 Hr 97.1 F-97.9 F 77-87 18-20 114-140/25-80 92-100 Constitutional: Yes: Well Nourished, No Distress Eyes: No: Sclera Icterus HENT: No: Nasal Congestion Neck: No: Decreased ROM Respiratory: Yes: CTA Bilaterally, Rales (both bases). No: Accessory Muscle Use Gastrointestinal: Yes: Normal Bowel Sounds. No: Distention, Hepatomegaly, Palpable Mass, Tenderness Cardiovascular: Yes: Regular Rate and Rhythm JVD: Yes Carotid Bruit: No PMI: Non-Displaced Heart Sounds: Yes: S1, S2. No: Gallop Murmur: No: Systolic Murmur, Diastolic Murmur Musculoskeletal: Yes: Other (No kyphosis) Extremities: No: Cold, Cyanosis Edema: No Peripheral Pulses: 2+ Left Carotid, 2+ Right Carotid, 2+ Left Doralis Pedis, 2+ Right Dorsalis Pedis Integumentary: No: Jaundice Neurological: Yes: Lethargy. No: Oriented Psychiatric: No: Agitated Laboratory Results - last 24 hr 06/01/18 06/01/18 06/02/18 22:00 22:00 01:19 WBC 5.5 RBC 3.31 L Hgb 10.0 L Hct 30.2 L MCV 91.4 MCH 30.3 MCHC 33.2 RDW 18.3 H Plt Count 142 MPV 9.9 D Absolute Neuts (auto) 4.1 Neutrophils % 75.1 Lymphocytes % 13.6 D Monocytes % 7.8 Eosinophils % 2.4 Basophils % 1.1 Nucleated RBC % 0 PT with INR INR PTT (Actin FS) Sodium 136 Potassium 3.7 Chloride 97 L Carbon Dioxide 28 Anion Gap 12 BUN 30 H Creatinine 5.5 H Creat Clearance w eGFR 10.16 POC Glucometer Random Glucose 83 Calcium 8.2 L Total Bilirubin 0.8 AST 10 L ALT 15 Alkaline Phosphatase 109 Creatine Kinase 52 46 Troponin I 0.04 0.05 B-Natriuretic Peptide 01471.5 H Total Protein 6.3 L Albumin 2.6 L 06/02/18 06/02/18 06/02/18 01:50 08:05 08:22 WBC RBC Hgb Hct MCV MCH MCHC RDW Plt Count MPV Absolute Neuts (auto) Neutrophils % Lymphocytes % Monocytes % Eosinophils % Basophils % Nucleated RBC % PT with INR 16.90 H INR 1.43 H PTT (Actin FS) 31.8 Sodium Potassium Chloride Carbon Dioxide Anion Gap BUN Creatinine Creat Clearance w eGFR POC Glucometer 99.82845 Random Glucose Calcium Total Bilirubin AST ALT Alkaline Phosphatase Creatine Kinase 55 Troponin I 0.04 B-Natriuretic Peptide Total Protein Albumin Assessment/Plan ECG: sinus, V-paced CXR mild congestion Echo 04/2018: mod reduced EF (35-40%). apical-septal severe HK, septal motion c/ w conduction abnormality. nl RV. mod LAE. ? prior MV repair/annuloplasty ring, + thickened leaflets: severe mitral stenosis (tech mean gradient 12 mmHg), mild MR. mild TR. RVSP 30-40. 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 - history less likely c/w ACS, possible MSK - would defer increasing imdur given low BPs - continue ranexa, plavix, aspirin, imdur chronic syst CHF, s/p TAVR (2017), severe mitral stenosis: - BNP 90796, in setting of ESRD, no prior - mild congestion on CXR -EF 35-40% -volume mgmt with HD -cont home LV dysfunction med regimen (tangela machado at [facility]) -on DAPT, however > 6 mo post TAVR and no recent stents--continue same if tolerating, defer to outpt teachers assistant HTN: -currently stable -cont home meds ESRD on HD: -per renal anemia: -hgb stable - manage per primary
[2018-06-02 09:54] LABS: EOS % 1.2 % (0-4.5); HEMATOCRIT 32.7 % (35.4-49); HEMOGLOBIN 10.7 GM/dL (11.7-16.9); LYMPH % 19.1 % (8-40); MCH 30.2 pg (25.7-33.7); MCHC 32.7 g/dl (32.0-35.9); MEAN CELL VOLUME 92.2 fl (80-96); MEAN PLT VOLUME 10.2 fl (7.5-11.1); MONO % 10.2 % (3.8-10.2); NEUT % 68.5 % (42.8-82.8); PLATELET COUNT 138 K/MM3 (134-434); RBC 3.54 M/mm3 (4.00-5.60); WHITE BLOOD COUNT 5.2 K/mm3 (4.0-10.0)
[2018-06-02] MEDS ORDERED: SODIUM CHLORIDE 250 ML IV PRN (10:00)
[2018-06-02] MEDS ORDERED: PATIENT'S OWN MEDICATION (NON-FORMULARY) (Vitamin B Complex [Vitamin B Complex] 1 EACH) PO SCH (10:00)
--- NOTE | 2018-06-02 10:41 | CONSULT ---
Consultation: CONSULT REQUEST: Nephrology Resident HISTORY OF PRESENT ILLNESS: 78yo M with significant history of ESRD (M/W/F; at [facility]) HTN, HLD, DM, CAD with prior cardiac arrest who presented to the ER after experiencing L anterior sharp chest pain during his dialysis session (06/01/18). We were asked to medically evaluate this pt due to his ESRD and dialysis needs. Pt reports finishing 2 hours of his usual 3 hour dialysis session yesterday at [facility] before experiencing chest pain and being sent to the ER. Pt reports he's been on dialysis for multiple years, but has been going to [facility] dialysis center for 1-2 years. Pt does endorse taking his antihypertensives prior to his dialysis session today. Currently, pt does not have any chest pain, shortness of breath or other complaints at this time PMHx: ESRD (M/W/F; [facility]; 3:30/450ABF/Aranesp/Iron/Heparin) HTN HLD CAD with cardiac stenting, CABG (2013), PPM placement Cardiac arrest 2 months prior DM COPD Mitral Regurgitation PSHx: PPM placement CABG (2013) R toe amputation R AVF creation L AVF creation (now nonfunctional) TAVR (2016) SoHx: Tobacco: Denies Alcohol: Denies Drugs: Denies Allergies: Iodine REVIEW OF SYSTEMS: CONSTITUTIONAL: Absent: fever, chills, diaphoresis, generalized weakness, malaise, loss of appetite HEENT: Absent: rhinorrhea, nasal congestion, throat pain, throat swelling, difficulty swallowing, mouth swelling, ear pain, eye pain, visual changes CARDIOVASCULAR: Absent: current chest pain, syncope, palpitations, irregular heart rate, lightheadedness, peripheral edema RESPIRATORY: Absent: cough, shortness of breath, dyspnea with exertion, orthopnea, wheezing GASTROINTESTINAL: Absent: abdominal pain, abdominal distension, nausea, vomiting, diarrhea, constipation GENITOURINARY: Absent: dysuria, frequency, urgency, hesitancy, hematuria, flank pain MUSCULOSKELETAL: Absent: back pain, neck pain SKIN: Absent: rash, itching, pallor PSYCHIATRIC: Absent: anxiety, depression PHYSICAL EXAMINATION Vital Signs - 24 hr 06/01/18 06/01/18 06/01/18 18:41 19:05 21:20 Temperature 97.1 F L 97.9 F 97.9 F Pulse Rate 87 Pulse Rate [ 78 78 Left Radial] Respiratory 20 18 18 Rate Blood Pressure 140/58 L Blood Pressure 130/80 125/76 [Left Arm] O2 Sat by Pulse 100 98 97 Oximetry (%) 06/02/18 06/02/18 06/02/18 00:05 03:30 03:33 Temperature 97.9 F Pulse Rate Pulse Rate [ 78 84 Left Radial] Respiratory 18 18 Rate Blood Pressure Blood Pressure 127/80 122/25 L [Left Arm] O2 Sat by Pulse 96 92 L 99 Oximetry (%) 06/02/18 07:04 Temperature 97.6 F Pulse Rate Pulse Rate [ 86 Left Radial] Respiratory 18 Rate Blood Pressure Blood Pressure 114/44 L [Left Arm] O2 Sat by Pulse 100 Oximetry (%) GENERAL: NAD, Awake, alert, and fully oriented, laying in bed HEENT: NC/AT, EOMI, HANNA, sclera anicteric, MMM, no facial edema NECK: No JVD appreciated LUNGS: CTA bilaterally. No wheezes, and no crackles. No accessory muscle use. On 2LNC HEART: RRR, normal S1 and S2 with 2/6 systolic murmur best heard at the apex ABDOMEN: Soft, NT/ND, normoactive bowel sounds, no guarding EXTREMITIES: 2+ DP pulses, warm, R AVF with palpable thrill without active bleeding, L arm without any palpable or auscultated thrill. No peripheral edema PSYCHIATRIC: Cooperative. Good eye contact. Appropriate mood and affect. SKIN: Warm, dry, no rashes Laboratory Results - last 24 hr 06/01/18 06/01/18 06/02/18 22:00 22:00 01:19 WBC 5.5 RBC 3.31 L Hgb 10.0 L Hct 30.2 L MCV 91.4 MCH 30.3 MCHC 33.2 RDW 18.3 H Plt Count 142 MPV 9.9 D Absolute Neuts (auto) 4.1 Neutrophils % 75.1 Lymphocytes % 13.6 D Monocytes % 7.8 Eosinophils % 2.4 Basophils % 1.1 Nucleated RBC % 0 PT with INR INR PTT (Actin FS) Sodium 136 Potassium 3.7 Chloride 97 L Carbon Dioxide 28 Anion Gap 12 BUN 30 H Creatinine 5.5 H Creat Clearance w eGFR 10.16 POC Glucometer Random Glucose 83 Calcium 8.2 L Total Bilirubin 0.8 AST 10 L ALT 15 Alkaline Phosphatase 109 Creatine Kinase 52 46 Troponin I 0.04 0.05 B-Natriuretic Peptide 08925.5 H Total Protein 6.3 L Albumin 2.6 L 06/02/18 06/02/18 06/02/18 01:50 08:05 08:22 WBC RBC Hgb Hct MCV MCH MCHC RDW Plt Count MPV Absolute Neuts (auto) Neutrophils % Lymphocytes % Monocytes % Eosinophils % Basophils % Nucleated RBC % PT with INR 16.90 H INR 1.43 H PTT (Actin FS) 31.8 Sodium Potassium Chloride Carbon Dioxide Anion Gap BUN Creatinine Creat Clearance w eGFR POC Glucometer 99.69579 Random Glucose Calcium Total Bilirubin AST ALT Alkaline Phosphatase Creatine Kinase 55 Troponin I 0.04 B-Natriuretic Peptide Total Protein Albumin 06/02/18 09:47 WBC 5.2 RBC 3.54 L Hgb 10.7 L Hct 32.7 L MCV 92.2 MCH 30.2 MCHC 32.7 RDW 18.0 H Plt Count 138 MPV 10.2 Absolute Neuts (auto) 3.6 Neutrophils % 68.5 Lymphocytes % 19.1 D Monocytes % 10.2 Eosinophils % 1.2 Basophils % 1.0 Nucleated RBC % 0 PT with INR INR PTT (Actin FS) Sodium Potassium Chloride Carbon Dioxide Anion Gap BUN Creatinine Creat Clearance w eGFR POC Glucometer Random Glucose Calcium Total Bilirubin AST ALT Alkaline Phosphatase Creatine Kinase Troponin I B-Natriuretic Peptide Total Protein Albumin Active Medications Generic Name Dose Route Start Last Admin Trade Name Freq PRN Reason Stop Dose Admin Albuterol/Ipratropium 1 amp 06/02/18 01:52 06/02/18 08:28 Duoneb - NEB 1 amp RQID KAVON Administration Amlodipine Besylate 5 mg 06/02/18 22:00 Norvasc - PO HS KAVON Atorvastatin Calcium 10 mg 06/02/18 22:00 Lipitor - PO HS KAVON Budesonide 1 amp 06/02/18 08:00 06/02/18 08:29 Pulmicort 0.5 Mg Nebulizer - NEB 1 amp RBID KAVON Administration Carvedilol 6.25 mg 06/02/18 10:00 06/02/18 09:11 Coreg - PO 6.25 mg BID KAVON Administration Folic Acid 1 mg 06/02/18 10:00 06/02/18 09:11 Folic Acid - PO 1 mg DAILY KAVON Administration Insulin Aspart 1 vial 06/02/18 07:00 06/02/18 08:28 Novolog Vial Sliding Scale - SQ Not Given ACHS KAVON Protocol Insulin Detemir 10 units 06/02/18 22:00 Levemir Vial SQ HS KAVON Isosorbide Mononitrate 30 mg 06/02/18 10:00 06/02/18 09:11 Imdur - PO 30 mg DAILY KAVON Administration Lactulose 30 gm 06/02/18 10:00 06/02/18 09:11 Cephulac (Oral Use) PO 30 gm DAILY KAVON Administration Multivitamins 1 each 06/02/18 10:00 06/02/18 09:11 Total B With C - PO 1 each DAILY K[facility]ON Administration Pantoprazole Sodium 40 mg 06/02/18 10:00 06/02/18 09:11 Protonix - PO 40 mg DAILY KAVON Administration Ranolazine 500 mg 06/02/18 10:00 06/02/18 09:11 Ranexa - PO 500 mg BID KAVON Administration Sevelamer Carbonate 800 mg 06/02/18 08:00 06/02/18 08:29 Renvela - PO 800 mg TIDCM KAVON Administration ASSESSMENT/PLAN: ESRD on HD (M/W/F) Normocytic Anemia Chest pain r/o ACS CAD s/p stenting, CABG HTN HLD DM --Pt received 2h of HD on 06/01/18 while at [facility] with no electrolyte abnormalities on labs or overload --Will likely keep regular schedule of dialysis sessions; 450abf/Heparin 500 and 1000bolus/3:30h/Aranesp/Iron --Continue Aranesp --Continue Renvela 800mg TID PO --Please give BP medications on dialysis days --No electrolyte abnormalities Dispo: Continue current mgmt. Thank you for this consultative opportunity. Case discussed with Dr. Navneet Clinton, DO - IM PGY-2 Visit type - Emergency Visit Emergency Visit: Yes ED Registration Date: 06/01/18 Care time: The patient presented to the Emergency Department on the above date and was hospitalized for further evaluation of their emergent condition. - New Patient This patient is new to me today: Yes Date on this admission: 06/02/18 - Critical Care Critical Care patient: No
[2018-06-02 10:47] LABS: ANION GAP 15 MMOL/L (8-16); BLOOD UREA NITROGEN 33 mg/dL (7-18); CALCIUM 8.6 mg/dL (8.5-10.1); CHLORIDE 99 mmol/L (98-107); CO2 22 mmol/L (21-32); CREATININE 6.2 mg/dL (0.55-1.3); GLUCOSE,RANDOM 88 mg/dL (74-106); MAGNESIUM 2.3 mg/dL (1.8-2.4); PHOSPHOROUS 4.9 mg/dL (2.5-4.9); POTASSIUM 4.3 mmol/L (3.5-5.1); SODIUM 136 mmol/L (136-145)
--- NOTE | 2018-06-02 11:00 | PN ---
Progress Note (short form) - Note Progress Note: sob better no distress Vital Signs - 24 hr 06/01/18 06/01/18 06/01/18 18:41 19:05 21:20 Temperature 97.1 F L 97.9 F 97.9 F Pulse Rate 87 Pulse Rate [ 78 78 Left Radial] Respiratory 20 18 18 Rate Blood Pressure 140/58 L Blood Pressure 130/80 125/76 [Left Arm] O2 Sat by Pulse 100 98 97 Oximetry (%) 06/02/18 06/02/18 06/02/18 00:05 03:30 03:33 Temperature 97.9 F Pulse Rate Pulse Rate [ 78 84 Left Radial] Respiratory 18 18 Rate Blood Pressure Blood Pressure 127/80 122/25 L [Left Arm] O2 Sat by Pulse 96 92 L 99 Oximetry (%) 06/02/18 07:04 Temperature 97.6 F Pulse Rate Pulse Rate [ 86 Left Radial] Respiratory 18 Rate Blood Pressure Blood Pressure 114/44 L [Left Arm] O2 Sat by Pulse 100 Oximetry (%) Current Medications Generic Name Dose Route Start Last Admin Trade Name Freq PRN Reason Stop Dose Admin Albuterol/Ipratropium 1 amp 06/02/18 01:52 06/02/18 08:28 Duoneb - NEB 1 amp RQID KAVON Administration Amlodipine Besylate 5 mg 06/02/18 22:00 Norvasc - PO HS KAVON Atorvastatin Calcium 10 mg 06/02/18 22:00 Lipitor - PO HS KAVON Budesonide 1 amp 06/02/18 08:00 06/02/18 08:29 Pulmicort 0.5 Mg Nebulizer - NEB 1 amp RBID KAVON Administration Carvedilol 6.25 mg 06/02/18 10:00 06/02/18 09:11 Coreg - PO 6.25 mg BID KAVON Administration Folic Acid 1 mg 06/02/18 10:00 06/02/18 09:11 Folic Acid - PO 1 mg DAILY KAVON Administration Insulin Aspart 1 vial 06/02/18 07:00 06/02/18 08:28 Novolog Vial Sliding Scale - SQ Not Given ACHS [facility] Protocol Insulin Detemir 10 units 06/02/18 22:00 Levemir Vial SQ HS KAVON Isosorbide Mononitrate 30 mg 06/02/18 10:00 06/02/18 09:11 Imdur - PO 30 mg DAILY K[facility]ON Administration Lactulose 30 gm 06/02/18 10:00 06/02/18 09:11 Cephulac (Oral Use) PO 30 gm DAILY KAVON Administration Multivitamins 1 each 06/02/18 10:00 06/02/18 09:11 Total B With C - PO 1 each DAILY K[facility]ON Administration Pantoprazole Sodium 40 mg 06/02/18 10:00 06/02/18 09:11 Protonix - PO 40 mg DAILY KAVON Administration Ranolazine 500 mg 06/02/18 10:00 06/02/18 09:11 Ranexa - PO 500 mg BID K[facility]ON Administration Sevelamer Carbonate 800 mg 06/02/18 08:00 06/02/18 08:29 Renvela - PO 800 mg TIDCM KAVON Administration Laboratory Results - last 24 hr 06/01/18 06/01/18 06/02/18 22:00 22:00 01:19 WBC 5.5 RBC 3.31 L Hgb 10.0 L Hct 30.2 L MCV 91.4 MCH 30.3 MCHC 33.2 RDW 18.3 H Plt Count 142 MPV 9.9 D Absolute Neuts (auto) 4.1 Neutrophils % 75.1 Lymphocytes % 13.6 D Monocytes % 7.8 Eosinophils % 2.4 Basophils % 1.1 Nucleated RBC % 0 PT with INR INR PTT (Actin FS) Sodium 136 Potassium 3.7 Chloride 97 L Carbon Dioxide 28 Anion Gap 12 BUN 30 H Creatinine 5.5 H Creat Clearance w eGFR 10.16 POC Glucometer Random Glucose 83 Calcium 8.2 L Phosphorus Magnesium Total Bilirubin 0.8 AST 10 L ALT 15 Alkaline Phosphatase 109 Creatine Kinase 52 46 Troponin I 0.04 0.05 B-Natriuretic Peptide 28590.5 H Total Protein 6.3 L Albumin 2.6 L 06/02/18 06/02/18 06/02/18 01:50 08:05 08:22 WBC RBC Hgb Hct MCV MCH MCHC RDW Plt Count MPV Absolute Neuts (auto) Neutrophils % Lymphocytes % Monocytes % Eosinophils % Basophils % Nucleated RBC % PT with INR 16.90 H INR 1.43 H PTT (Actin FS) 31.8 Sodium Potassium Chloride Carbon Dioxide Anion Gap BUN Creatinine Creat Clearance w eGFR POC Glucometer 99.15653 Random Glucose Calcium Phosphorus Magnesium Total Bilirubin AST ALT Alkaline Phosphatase Creatine Kinase 55 Troponin I 0.04 B-Natriuretic Peptide Total Protein Albumin 06/02/18 06/02/18 09:47 09:47 WBC 5.2 RBC 3.54 L Hgb 10.7 L Hct 32.7 L MCV 92.2 MCH 30.2 MCHC 32.7 RDW 18.0 H Plt Count 138 MPV 10.2 Absolute Neuts (auto) 3.6 Neutrophils % 68.5 Lymphocytes % 19.1 D Monocytes % 10.2 Eosinophils % 1.2 Basophils % 1.0 Nucleated RBC % 0 PT with INR INR PTT (Actin FS) Sodium 136 Potassium 4.3 Chloride 99 Carbon Dioxide 22 Anion Gap 15 BUN 33 H Creatinine 6.2 H Creat Clearance w eGFR 8.85 POC Glucometer Random Glucose 88 Calcium 8.6 Phosphorus 4.9 Magnesium 2.3 Total Bilirubin AST ALT Alkaline Phosphatase Creatine Kinase Troponin I 0.03 B-Natriuretic Peptide Total Protein Albumin S1 S2 RRR lungs decreased Abd- soft, nt no edema plan HD per renal Cardiology eval noted check cardiac enzymes Not on ASA and Plavix-- had GI bleeding last admission Problem List - Problems (1) Acute on chronic systolic CHF (congestive heart failure) Code(s): I50.23 - ACUTE ON CHRONIC SYSTOLIC (CONGESTIVE) HEART FAILURE (2) Chest pain Code(s): R07.9 - CHEST PAIN, UNSPECIFIED (3) ASHD (arteriosclerotic heart disease) Code(s): I25.10 - ATHSCL HEART DISEASE OF [place] CORONARY ARTERY W/O ANG PCTRS (4) Altered mental status Code(s): R41.82 - ALTERED MENTAL STATUS, UNSPECIFIED (5) ESRD (end stage renal disease) on dialysis Code(s): N18.6 - END STAGE RENAL DISEASE; Z99.2 - DEPENDENCE ON RENAL DIALYSIS
--- NOTE | 2018-06-02 16:02 | EKG ---
Test Reason : Blood Pressure : / mmHG Vent. Rate : 087 BPM Atrial Rate : 087 BPM P-R Int : 212 ms QRS Dur : 196 ms QT Int : 470 ms P-R-T Axes : 019 -86 088 degrees QTc Int : 565 ms Atrial-paced rhythm Ventricular-paced rhythm ABNORMAL ECG WHEN COMPARED WITH ECG OF 14-MAY-2018 08:19, VENT. RATE HAS INCREASED BY 5 BPM Confirmed by Sascha Dunn ([id number]) on 06/02/2018 4:01:51 PM Referred By: Confirmed By:Sascha Dunn
[2018-06-02 16:16] VITALS: BMI 22.7
--- NOTE | 2018-06-02 16:51 | PN ---
Teaching Attending Note Name of Resident: Spencer Clinton (Nephrology) ATTENDING PHYSICIAN STATEMENT I saw and evaluated the patient. I reviewed the resident's note and discussed the case with the resident. I agree with the resident's findings and plan as documented. Renal Pt is a 78 year old male with pmhx of ESRD on HD who was sent in for chest pain. His last HD was yesterday. Current Active Problems Chest pain (Acute) Last Vital Signs Temp Pulse Resp BP Pulse Ox 97.4 F L 84 18 133/62 99 06/02/18 16:13 06/02/18 16:13 06/02/18 16:17 06/02/18 16:13 06/02/18 16:17 Current Medications Generic Name Dose Route Start Last Admin Trade Name Freq PRN Reason Stop Dose Admin Albuterol/Ipratropium 1 amp 06/02/18 01:52 06/02/18 15:57 Duoneb - NEB 1 amp RQID KAVON Administration Amlodipine Besylate 5 mg 06/02/18 22:00 Norvasc - PO HS KAVON Atorvastatin Calcium 10 mg 06/02/18 22:00 Lipitor - PO HS KAVON Budesonide 1 amp 06/02/18 08:00 06/02/18 08:29 Pulmicort 0.5 Mg Nebulizer - NEB 1 amp RBID KAVON Administration Carvedilol 6.25 mg 06/02/18 10:00 06/02/18 09:11 Coreg - PO 6.25 mg BID KAVON Administration Folic Acid 1 mg 06/02/18 10:00 06/02/18 09:11 Folic Acid - PO 1 mg DAILY KAVON Administration Insulin Aspart 1 vial 06/02/18 07:00 06/02/18 12:11 Novolog Vial Sliding Scale - SQ Not Given [facility] Protocol Insulin Detemir 10 units 06/02/18 22:00 Levemir Vial SQ HS KAVON Isosorbide Mononitrate 30 mg 06/02/18 10:00 06/02/18 09:11 Imdur - PO 30 mg DAILY K[facility]ON Administration Lactulose 30 gm 06/02/18 10:00 06/02/18 09:11 Cephulac (Oral Use) PO 30 gm DAILY K[facility]ON Administration Multivitamins 1 each 06/02/18 10:00 06/02/18 09:11 Total B With C - PO 1 each DAILY KAVON Administration Pantoprazole Sodium 40 mg 06/02/18 10:00 06/02/18 09:11 Protonix - PO 40 mg DAILY K[facility]ON Administration Ranolazine 500 mg 06/02/18 10:00 06/02/18 09:11 Ranexa - PO 500 mg BID K[facility]ON Administration Sevelamer Carbonate 800 mg 06/02/18 08:00 06/02/18 12:11 Renvela - PO 800 mg TIDCM KAVON Administration Laboratory Tests 06/02/18 06/02/18 09:47 09:47 Hgb 10.7 L Sodium 136 Potassium 4.3 BUN 33 H Creatinine 6.2 H cardio s1s2 pulm clear GI soft ext neg edema neuro pre existing deficit Impression 1. ESRD 2. chest pain 3. CAD 4. hx of cardiac arrest 5. anemia 6. DM 7. HLD Plan -HD in am - epogen for anemia - cardiac workup - cxr reviewed, will UF volume - will follow Dr Toth
[2018-06-02] MEDS: amLODIPine BESYLATE 5 MG TABLET (FP) PO SCH (21:55)
[2018-06-02] MEDS: ATORVASTATIN CA 10 MG TABLET (FP) PO SCH (22:00)
[2018-06-02] MEDS: INSULIN (LEVEMIR) 100 UNITS/ML UNITS SQ SCH (22:05)
[2018-06-03] MEDS: INSULIN SLIDING SCALE (NOVOLOG) 1 VIAL SQ SCH ×4 (06:29→21:54)
[2018-06-03 07:44] LABS: HEMATOCRIT 30.7 % (35.4-49); HEMOGLOBIN 9.6 GM/dL (11.7-16.9); MCH 28.5 pg (25.7-33.7); MCHC 31.1 g/dl (32.0-35.9); MEAN CELL VOLUME 91.6 fl (80-96); MEAN PLT VOLUME 10.1 fl (7.5-11.1); PLATELET COUNT 143 K/MM3 (134-434); RBC 3.35 M/mm3 (4.00-5.60); RDW 17.8 % (11.9-15.9); WHITE BLOOD COUNT 6.6 K/mm3 (4.0-10.0)
[2018-06-03] MEDS: ALBUTEROL SO4 2.5/IPRATROPIUM 0.5 INH SOL 3 ML VIAL.NEB. NEB SCH ×4 (07:59→20:54)
[2018-06-03] MEDS: BUDESONIDE 0.5 MG/2 ML INH SUSP VIAL NEB SCH ×2 (07:59→20:54)
[2018-06-03] MEDS: SEVELAMER CARBONATE 800 MG TAB (FP) PO SCH ×3 (08:27→17:32)
[2018-06-03 08:40] LABS: ANION GAP 13 MMOL/L (8-16); BLOOD UREA NITROGEN 41 mg/dL (7-18); CALCIUM 8.8 mg/dL (8.5-10.1); CHLORIDE 96 mmol/L (98-107); CO2 26 mmol/L (21-32); CREATININE 7.3 mg/dL (0.55-1.3); GLUCOSE,RANDOM 85 mg/dL (74-106); POTASSIUM 4.3 mmol/L (3.5-5.1); SODIUM 136 mmol/L (136-145)
--- NOTE | 2018-06-03 09:46 | PN ---
Progress Note (short form) - Note Progress Note: s: no cp, palps, dizziness, lightheadedness, edema Current Medications Albuterol/Ipratropium (Duoneb -) 1 amp NEB RQID [facility] Last Admin: 06/03/18 07:59 Dose: Not Given Amlodipine Besylate (Norvasc -) 5 mg PO HS [facility] Last Admin: 06/02/18 21:55 Dose: Not Given Atorvastatin Calcium (Lipitor -) 10 mg PO HS [facility] Last Admin: 06/02/18 22:00 Dose: 10 mg Budesonide (Pulmicort 0.5 Mg Nebulizer -) 1 amp NEB RBID [facility] Last Admin: 06/03/18 07:59 Dose: Not Given Carvedilol (Coreg -) 6.25 mg PO BID [facility] Last Admin: 06/02/18 21:55 Dose: Not Given Epoetin Edin (Epogen -) 4,000 unit IVPUSH ONCE ONE Stop: 06/03/18 16:51 Folic Acid (Folic Acid -) 1 mg PO DAILY [facility] Last Admin: 06/02/18 09:11 Dose: 1 mg Sodium Chloride (Normal Saline -) 250 mls @ 3,000 mls/hr IV PRN PRN PRN Reason: Hypotension during Dialysis Stop: 06/03/18 16:51 Insulin Aspart (Novolog Vial Sliding Scale -) 1 vial SQ [facility]; Protocol Last Admin: 06/03/18 06:29 Dose: Not Given Insulin Detemir (Levemir Vial) 10 units SQ [facility] Last Admin: 06/02/18 22:05 Dose: Not Given Isosorbide Mononitrate (Imdur -) 30 mg PO DAILY [facility] Last Admin: 06/02/18 09:11 Dose: 30 mg Lactulose (Cephulac (Oral Use)) 30 gm PO DAILY [facility] Last Admin: 06/02/18 09:11 Dose: 30 gm Multivitamins (Total B With C -) 1 each PO DAILY [facility] Last Admin: 06/02/18 09:11 Dose: 1 each Pantoprazole Sodium (Protonix -) 40 mg PO DAILY [facility] Last Admin: 06/02/18 09:11 Dose: 40 mg Ranolazine (Ranexa -) 500 mg PO BID [facility] Last Admin: 06/02/18 22:00 Dose: 500 mg Sevelamer Carbonate (Renvela -) 800 mg PO TIDCM [facility] Last Admin: 06/03/18 08:27 Dose: 800 mg Vital Signs: Vital Signs Period Temp Pulse Resp BP Sys/Adams Pulse Ox Last 24 Hr 97.1 F-98.2 F 84-88 18-18 97-133/45-67 85-100 Constitutional: Yes: Well Nourished, No Distress Eyes: No: Sclera Icterus HENT: No: Nasal Congestion Neck: No: Decreased ROM Respiratory: Yes: CTA Bilaterally, Rales (both bases). No: Accessory Muscle Use Gastrointestinal: Yes: Normal Bowel Sounds. No: Distention, Hepatomegaly, Palpable Mass, Tenderness Cardiovascular: Yes: Regular Rate and Rhythm JVD: Yes Carotid Bruit: No PMI: Non-Displaced Heart Sounds: Yes: S1, S2. No: Gallop Murmur: No: Systolic Murmur, Diastolic Murmur Musculoskeletal: Yes: Other (No kyphosis) Extremities: No: Cold, Cyanosis Edema: No Peripheral Pulses: 2+ Left Carotid, 2+ Right Carotid, 2+ Left Doralis Pedis, 2+ Right Dorsalis Pedis Integumentary: No: Jaundice Neurological: Yes: Lethargy. No: Oriented Psychiatric: No: Agitated Assessment/Plan ECG: sinus, V-paced CXR mild congestion Echo 04/2018: mod reduced EF (35-40%). apical-septal severe HK, septal motion c/ w conduction abnormality. nl RV. mod LAE. ? prior MV repair/annuloplasty ring, + thickened leaflets: severe mitral stenosis (tech mean gradient 12 mmHg), mild MR. mild TR. RVSP 30-40. 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 [employer] - history less likely c/w ACS, possible MSK - would defer increasing imdur given low BPs - continue ranexa, plavix, aspirin, imdur - discussed with son today, has had four ER visits for chest pain during HD. cath last year prior to TAVR reportedly unremarkable, however episodes all since cardiac arrest. cath had been discussed more recently by his outpatient wind turbine mechanic at [facility] but was deferred - nuclear stress test ordered for risk stratification, history atypical for angina however given multiple ER visits, h/o CAD will evaluate chronic syst CHF, s/p TAVR (2017), severe mitral stenosis: - BNP [id number], in setting of ESRD, no prior - mild congestion on CXR -EF 35-40% -volume mgmt with HD -cont home LV dysfunction med regimen (frederics jeannette at [facility]) -on DAPT, however > 6 mo post TAVR and no recent stents--continue same if tolerating, defer to outpt wind turbine mechanic HTN: -currently stable -cont home meds ESRD on HD: -per renal anemia: -hgb stable - manage per primary
[2018-06-03] MEDS ORDERED: EPOETIN ALFA 2,000 UNIT/1 ML VIAL IVPUSH ONE (10:00)
--- NOTE | 2018-06-03 11:01 | PN ---
Progress Note, Physician History of Present Illness: Pt seen and examined at bedside. He is awake and appears comfortable. He is currently getting HD. - Current Medication List Current Medications: Active Medications Albuterol/Ipratropium (Duoneb -) 1 amp NEB RQID [facility] Last Admin: 06/03/18 07:59 Dose: Not Given Amlodipine Besylate (Norvasc -) 5 mg PO [facility] Last Admin: 06/02/18 21:55 Dose: Not Given Atorvastatin Calcium (Lipitor -) 10 mg PO HS [facility] Last Admin: 06/02/18 22:00 Dose: 10 mg Budesonide (Pulmicort 0.5 Mg Nebulizer -) 1 amp NEB RBID [facility] Last Admin: 06/03/18 07:59 Dose: Not Given Carvedilol (Coreg -) 6.25 mg PO BID [facility] Last Admin: 06/02/18 21:55 Dose: Not Given Folic Acid (Folic Acid -) 1 mg PO DAILY [facility] Last Admin: 06/02/18 09:11 Dose: 1 mg Insulin Aspart (Novolog Vial Sliding Scale -) 1 vial SQ [facility]; Protocol Last Admin: 06/03/18 06:29 Dose: Not Given Insulin Detemir (Levemir Vial) 10 units SQ [facility] Last Admin: 06/02/18 22:05 Dose: Not Given Isosorbide Mononitrate (Imdur -) 30 mg PO DAILY [facility] Last Admin: 06/02/18 09:11 Dose: 30 mg Lactulose (Cephulac (Oral Use)) 30 gm PO DAILY [facility] Last Admin: 06/02/18 09:11 Dose: 30 gm Multivitamins (Total B With C -) 1 each PO DAILY [facility] Last Admin: 06/02/18 09:11 Dose: 1 each Pantoprazole Sodium (Protonix -) 40 mg PO DAILY [facility] Last Admin: 06/02/18 09:11 Dose: 40 mg Ranolazine (Ranexa -) 500 mg PO BID [facility] Last Admin: 06/02/18 22:00 Dose: 500 mg Sevelamer Carbonate (Renvela -) 800 mg PO TIDCM [facility] Last Admin: 06/03/18 08:27 Dose: 800 mg - Objective Vital Signs: Vital Signs Temperature 98 F 06/03/18 09:49 Pulse Rate 90 06/03/18 10:00 Respiratory Rate 18 06/03/18 10:00 Blood Pressure 126/57 L 06/03/18 10:00 O2 Sat by Pulse Oximetry (%) 100 06/03/18 05:00 Constitutional: Yes: Calm Eyes: Yes: Conjunctiva Clear Cardiovascular: Yes: S1, S2 Respiratory: Yes: CTA Bilaterally Gastrointestinal: Yes: Soft Genitourinary: Yes: Incontinence Musculoskeletal: Yes: Muscle Weakness Edema: No Integumentary: Yes: WNL Neurological: Yes: Confusion, Pre-Existing Deficit Labs: CBC, BMP 06/03/18 05:50 06/03/18 05:50 INR, PTT INR 1.43 (0.83-1.09) H 06/02/18 01:50 Problem List - Problems (1) Chest pain Code(s): R07.9 - CHEST PAIN, UNSPECIFIED (2) ESRD (end stage renal disease) on dialysis Code(s): N18.6 - END STAGE RENAL DISEASE; Z99.2 - DEPENDENCE ON RENAL DIALYSIS Assessment/Plan Current Medications Generic Name Dose Route Start Last Admin Trade Name Freq PRN Reason Stop Dose Admin Albuterol/Ipratropium 1 amp 06/02/18 01:52 06/03/18 07:59 Duoneb - NEB Not Given RQID [facility] Amlodipine Besylate 5 mg 06/02/18 22:00 06/02/18 21:55 Norvasc - PO Not Given HS [facility] Atorvastatin Calcium 10 mg 06/02/18 22:00 06/02/18 22:00 Lipitor - PO 10 mg HS [facility] Administration Budesonide 1 amp 06/02/18 08:00 06/03/18 07:59 Pulmicort 0.5 Mg Nebulizer - NEB Not Given RBID [facility] Carvedilol 6.25 mg 06/02/18 10:00 06/02/18 21:55 Coreg - PO Not Given BID [facility] Folic Acid 1 mg 06/02/18 10:00 06/02/18 09:11 Folic Acid - PO 1 mg DAILY [facility] Administration Insulin Aspart 1 vial 06/02/18 07:00 06/03/18 06:29 Novolog Vial Sliding Scale - SQ Not Given ACHS [facility] Protocol Insulin Detemir 10 units 06/02/18 22:00 06/02/18 22:05 Levemir Vial SQ Not Given HS [facility] Isosorbide Mononitrate 30 mg 06/02/18 10:00 06/02/18 09:11 Imdur - PO 30 mg DAILY [facility] Administration Lactulose 30 gm 06/02/18 10:00 06/02/18 09:11 Cephulac (Oral Use) PO 30 gm DAILY [facility] Administration Multivitamins 1 each 06/02/18 10:00 06/02/18 09:11 Total B With C - PO 1 each DAILY [facility] Administration Pantoprazole Sodium 40 mg 06/02/18 10:00 06/02/18 09:11 Protonix - PO 40 mg DAILY [facility] Administration Ranolazine 500 mg 06/02/18 10:00 06/02/18 22:00 Ranexa - PO 500 mg BID [facility] Administration Sevelamer Carbonate 800 mg 06/02/18 08:00 06/03/18 08:27 Renvela - PO 800 mg TIDCM [facility] Administration Impression 1. ESRD 2. chest pain 3. CAD 4. hx of cardiac arrest 5. anemia 6. DM 7. HLD Plan - HD today - pt denies chest pain - monitor bp - mental status is table - will UF volume on HD as cxr appeared congested - will follow
[2018-06-03] MEDS: LACTULOSE 20 GM/30 ML UDC (FOR ORAL USE ONLY) PO SCH (13:42)
[2018-06-03] MEDS: CARVEDILOL 6.25 MG TABLET (FP) PO SCH ×2 (13:43→21:49)
[2018-06-03] MEDS: ISOSORBIDE MONONITRATE 30 MG TAB.SR.24H (FP) PO SCH (13:43)
[2018-06-03] MEDS: PANTOPRAZOLE 40 MG TABLET (FP) PO SCH (13:43)
[2018-06-03] MEDS: RANOLAZINE E.R. 500 MG TABLET (FP) PO SCH ×2 (13:43→21:49)
[2018-06-03] MEDS: FOLIC ACID 1 MG TABLET (FP) PO SCH (13:43)
[2018-06-03] MEDS: VITAMIN B COMPLEX W/C COMBO TABLET (FP) PO SCH (13:44)
[2018-06-03] MEDS ORDERED: PT OWN MED DRAWER 7, Y5N ONE (13:50)
[2018-06-03] MEDS: ATORVASTATIN CA 10 MG TABLET (FP) PO SCH (21:49)
[2018-06-03] MEDS: amLODIPine BESYLATE 5 MG TABLET (FP) PO SCH (21:49)
[2018-06-03] MEDS: INSULIN (LEVEMIR) 100 UNITS/ML UNITS SQ SCH (21:54)
--- NOTE | 2018-06-03 23:09 | PN ---
Progress Note (short form) - Note Progress Note: Undergoing dialysis had pain in left leg Vital Signs - 24 hr 06/03/18 06/03/18 06/03/18 02:00 05:00 06:00 Temperature 98.2 F 97.5 F L Pulse Rate 86 84 Respiratory 18 18 Rate Blood Pressure 119/53 L 97/45 L O2 Sat by Pulse 100 Oximetry (%) 06/03/18 06/03/18 06/03/18 09:20 09:30 09:49 Temperature 98 F Pulse Rate 88 86 87 Respiratory 18 18 18 Rate Blood Pressure 118/56 L 107/47 L 106/67 O2 Sat by Pulse Oximetry (%) 06/03/18 06/03/18 06/03/18 10:00 10:30 11:00 Temperature Pulse Rate 90 93 H 87 Respiratory 18 18 18 Rate Blood Pressure 126/57 L 115/56 L 127/69 O2 Sat by Pulse Oximetry (%) 06/03/18 06/03/18 06/03/18 11:30 12:00 12:30 Temperature Pulse Rate 92 H 94 H 96 H Respiratory 18 18 18 Rate Blood Pressure 138/67 135/64 137/68 O2 Sat by Pulse Oximetry (%) 06/03/18 06/03/18 06/03/18 13:00 13:40 16:30 Temperature 98.0 F 97.5 F L Pulse Rate 95 H 100 H 100 H Respiratory 18 18 18 Rate Blood Pressure 130/63 105/58 L 117/49 L O2 Sat by Pulse 100 Oximetry (%) Laboratory Results - last 24 hr 06/03/18 06/03/18 06/03/18 05:50 05:50 06:21 WBC 6.6 RBC 3.35 L Hgb 9.6 L Hct 30.7 L MCV 91.6 MCH 28.5 MCHC 31.1 L RDW 17.8 H Plt Count 143 MPV 10.1 Sodium 136 Potassium 4.3 Chloride 96 L Carbon Dioxide 26 Anion Gap 13 BUN 41 H Creatinine 7.3 H Creat Clearance w eGFR 7.33 POC Glucometer 96 Random Glucose 85 Calcium 8.8 Stool Occult Blood 06/03/18 06/03/18 06/03/18 11:50 17:22 21:48 WBC RBC Hgb Hct MCV MCH MCHC RDW Plt Count MPV Sodium Potassium Chloride Carbon Dioxide Anion Gap BUN Creatinine Creat Clearance w eGFR POC Glucometer 146 196 136 Random Glucose Calcium Stool Occult Blood 06/03/18 22:20 WBC RBC Hgb Hct MCV MCH MCHC RDW Plt Count MPV Sodium Potassium Chloride Carbon Dioxide Anion Gap BUN Creatinine Creat Clearance w eGFR POC Glucometer Random Glucose Calcium Stool Occult Blood Positive Current Medications Generic Name Dose Route Start Last Admin Trade Name Annmarie PRN Reason Stop Dose Admin Albuterol/Ipratropium 1 amp 06/02/18 01:52 06/03/18 20:54 Duoneb - NEB 1 amp RQID [facility] Administration Amlodipine Besylate 5 mg 06/02/18 22:00 06/03/18 21:49 Norvasc - PO 5 mg HS [facility] Administration Atorvastatin Calcium 10 mg 06/02/18 22:00 06/03/18 21:49 Lipitor - PO 10 mg HS [facility] Administration Budesonide 1 amp 06/02/18 08:00 06/03/18 20:54 Pulmicort 0.5 Mg Nebulizer - NEB 1 amp RBID [facility] Administration Carvedilol 6.25 mg 06/02/18 10:00 06/03/18 21:49 Coreg - PO 6.25 mg BID [facility] Administration Folic Acid 1 mg 06/02/18 10:00 06/03/18 13:43 Folic Acid - PO 1 mg DAILY [facility] Administration Insulin Aspart 1 vial 06/02/18 07:00 06/03/18 21:54 Novolog Vial Sliding Scale - SQ Not Given ACHS [facility] Protocol Insulin Detemir 10 units 06/02/18 22:00 06/03/18 21:54 Levemir Vial SQ Not Given HS [facility] Isosorbide Mononitrate 30 mg 06/02/18 10:00 06/03/18 13:43 Imdur - PO 30 mg DAILY [facility] Administration Lactulose 30 gm 06/02/18 10:00 06/03/18 13:42 Cephulac (Oral Use) PO 30 gm DAILY [facility] Administration Multivitamins 1 each 06/02/18 10:00 06/03/18 13:44 Total B With C - PO 1 each DAILY [facility] Administration Pantoprazole Sodium 40 mg 06/02/18 10:00 06/03/18 13:43 Protonix - PO 40 mg DAILY [facility] Administration Ranolazine 500 mg 06/02/18 10:00 06/03/18 21:49 Ranexa - PO 500 mg BID [facility] Administration Sevelamer Carbonate 800 mg 06/02/18 08:00 06/03/18 17:32 Renvela - PO 800 mg TIDCM [facility] Administration S1 S2 RRR Lungs decreased ABd- soft, NT No edema Left foot-- ulcer noted on 4 th toe healed wound on dorsum of foot PLAN HD per Renal stress test tomorrow spoke with daughter Check arterial doppler to legs local wound care to ulcer continue with meds off ASA and Plavix-- h/o GI bleed Problem List - Problems (1) Chest pain Code(s): R07.9 - CHEST PAIN, UNSPECIFIED (2) ASHD (arteriosclerotic heart disease) Code(s): I25.10 - ATHSCL HEART DISEASE OF [place] CORONARY ARTERY W/O ANG PCTRS (3) Acute on chronic respiratory failure with hypoxia and hypercapnia Code(s): J96.21 - ACUTE AND CHRONIC RESPIRATORY FAILURE WITH HYPOXIA; J96.22 - ACUTE AND CHRONIC RESPIRATORY FAILURE WITH HYPERCAPNIA (4) Acute respiratory failure with hypoxia and hypercapnia Code(s): J96.01 - ACUTE RESPIRATORY FAILURE WITH HYPOXIA; J96.02 - ACUTE RESPIRATORY FAILURE WITH HYPERCAPNIA (5) ESRD (end stage renal disease) on dialysis Code(s): N18.6 - END STAGE RENAL DISEASE; Z99.2 - DEPENDENCE ON RENAL DIALYSIS
[2018-06-04] MEDS: INSULIN SLIDING SCALE (NOVOLOG) 1 VIAL SQ SCH ×4 (06:03→21:10)
[2018-06-04] MEDS: ALBUTEROL SO4 2.5/IPRATROPIUM 0.5 INH SOL 3 ML VIAL.NEB. NEB SCH ×4 (07:36→20:19)
[2018-06-04] MEDS: BUDESONIDE 0.5 MG/2 ML INH SUSP VIAL NEB SCH ×2 (07:36→20:20)
[2018-06-04] MEDS ORDERED: REGADENOSON 0.4 MG/5 ML PRE-FILLED SYRINGE IVPUSH ONE ×2 (09:30→10:11)
--- NOTE | 2018-06-04 09:50 | PN ---
Progress Note (short form) - Note Progress Note: sob better no distress Vital Signs - 24 hr 06/03/18 06/04/18 06/04/18 21:00 02:10 04:34 Temperature 97.7 F 98.1 F Pulse Rate 87 80 Respiratory 18 20 Rate Blood Pressure 120/54 L 93/36 L O2 Sat by Pulse 100 100 Oximetry (%) 06/04/18 06/04/18 06/04/18 06:00 12:38 13:00 Temperature 97.7 F 97.5 F L Pulse Rate 81 84 Respiratory 20 20 Rate Blood Pressure 132/58 L 112/53 L O2 Sat by Pulse 99 Oximetry (%) 06/04/18 14:15 Temperature 97.5 F L Pulse Rate 84 Respiratory 18 Rate Blood Pressure 112/53 L O2 Sat by Pulse Oximetry (%) Current Medications Generic Name Dose Route Start Last Admin Trade Name Freq PRN Reason Stop Dose Admin Albuterol/Ipratropium 1 amp 06/02/18 01:52 06/04/18 16:05 Duoneb - NEB 1 amp RQID [facility] Administration Amlodipine Besylate 5 mg 06/02/18 22:00 06/03/18 21:49 Norvasc - PO 5 mg HS [facility] Administration Atorvastatin Calcium 10 mg 06/02/18 22:00 06/03/18 21:49 Lipitor - PO 10 mg HS [facility] Administration Budesonide 1 amp 06/02/18 08:00 06/04/18 07:36 Pulmicort 0.5 Mg Nebulizer - NEB 1 amp RBID [facility] Administration Carvedilol 6.25 mg 06/02/18 10:00 06/04/18 13:25 Coreg - PO 6.25 mg BID [facility] Administration Epoetin Edin 4,000 unit 06/05/18 15:31 Epogen - IVPUSH 06/05/18 15:32 ONCE ONE Folic Acid 1 mg 06/02/18 10:00 06/04/18 13:25 Folic Acid - PO 1 mg DAILY [facility] Administration Sodium Chloride 250 mls @ 3,000 mls/hr 06/04/18 15:31 Normal Saline - IV 06/05/18 15:31 PRN PRN Hypotension during Dialysis Insulin Aspart 1 vial 06/02/18 07:00 06/04/18 17:11 Novolog Vial Sliding Scale - SQ Not Given ACHS [facility] Protocol Insulin Detemir 10 units 06/02/18 22:00 06/03/18 21:54 Levemir Vial SQ Not Given HS [facility] Isosorbide Mononitrate 30 mg 06/02/18 10:00 06/04/18 13:25 Imdur - PO 30 mg DAILY [facility] Administration Lactulose 30 gm 06/02/18 10:00 06/04/18 13:26 Cephulac (Oral Use) PO 30 gm DAILY [facility] Administration Multivitamins 1 each 06/02/18 10:00 06/04/18 13:25 Total B With C - PO 1 each DAILY [facility] Administration Pantoprazole Sodium 40 mg 06/02/18 10:00 06/04/18 13:24 Protonix - PO 40 mg DAILY [facility] Administration Ranolazine 500 mg 06/02/18 10:00 06/04/18 13:24 Ranexa - PO 500 mg BID [facility] Administration Sevelamer Carbonate 800 mg 06/02/18 08:00 06/04/18 18:06 Renvela - PO 800 mg TIDCM [facility] Administration Laboratory Results - last 24 hr 06/03/18 06/03/18 06/03/18 09:30 21:48 22:20 POC Glucometer 136 Stool Occult Blood Positive Hep C Ab Diagnostic <0.1 06/04/18 06/04/18 06/04/18 05:05 13:29 17:10 POC Glucometer 125 151 146 Stool Occult Blood Hep C Ab Diagnostic S1 S2 RRR lungs decreased Abd- soft, nt no edema plan HD per renal s/p stress test-- results normal Not on ASA and Plavix-- had GI bleeding last admission, also stool guaic is positive- family does not want colonoscopy at this time HCT stable dc plan for tomorrow after dialysis Problem List - Problems (1) Acute on chronic systolic CHF (congestive heart failure) Code(s): I50.23 - ACUTE ON CHRONIC SYSTOLIC (CONGESTIVE) HEART FAILURE (2) Chest pain Code(s): R07.9 - CHEST PAIN, UNSPECIFIED (3) ASHD (arteriosclerotic heart disease) Code(s): I25.10 - ATHSCL HEART DISEASE OF [place] CORONARY ARTERY W/O ANG PCTRS (4) Altered mental status Code(s): R41.82 - ALTERED MENTAL STATUS, UNSPECIFIED (5) ESRD (end stage renal disease) on dialysis Code(s): N18.6 - END STAGE RENAL DISEASE; Z99.2 - DEPENDENCE ON RENAL DIALYSIS
--- NOTE | 2018-06-04 13:09 | PN ---
Progress Note (short form) - Note Progress Note: s: no cp, palps, dizziness, lightheadedness, edema Current Medications Generic Name Dose Route Start Last Admin Trade Name Annmarie PRN Reason Stop Dose Admin Albuterol/Ipratropium 1 amp 06/02/18 01:52 06/04/18 12:10 Duoneb - NEB Not Given RQID [facility] Amlodipine Besylate 5 mg 06/02/18 22:00 06/03/18 21:49 Norvasc - PO 5 mg HS [facility] Administration Atorvastatin Calcium 10 mg 06/02/18 22:00 06/03/18 21:49 Lipitor - PO 10 mg HS [facility] Administration Budesonide 1 amp 06/02/18 08:00 06/04/18 07:36 Pulmicort 0.5 Mg Nebulizer - NEB 1 amp RBID [facility] Administration Carvedilol 6.25 mg 06/02/18 10:00 06/03/18 21:49 Coreg - PO 6.25 mg BID [facility] Administration Folic Acid 1 mg 06/02/18 10:00 06/03/18 13:43 Folic Acid - PO 1 mg DAILY [facility] Administration Insulin Aspart 1 vial 06/02/18 07:00 06/04/18 06:03 Novolog Vial Sliding Scale - SQ Not Given ACHS [facility] Protocol Insulin Detemir 10 units 06/02/18 22:00 06/03/18 21:54 Levemir Vial SQ Not Given HS [facility] Isosorbide Mononitrate 30 mg 06/02/18 10:00 06/03/18 13:43 Imdur - PO 30 mg DAILY [facility] Administration Lactulose 30 gm 06/02/18 10:00 06/03/18 13:42 Cephulac (Oral Use) PO 30 gm DAILY [facility] Administration Multivitamins 1 each 06/02/18 10:00 06/03/18 13:44 Total B With C - PO 1 each DAILY [facility] Administration Pantoprazole Sodium 40 mg 06/02/18 10:00 06/03/18 13:43 Protonix - PO 40 mg DAILY [facility] Administration Ranolazine 500 mg 06/02/18 10:00 06/03/18 21:49 Ranexa - PO 500 mg BID [facility] Administration Sevelamer Carbonate 800 mg 06/02/18 08:00 06/03/18 17:32 Renvela - PO 800 mg TIDCM [facility] Administration Vital Signs: Vital Signs Period Temp Pulse Resp BP Sys/Adams Pulse Ox Last 24 Hr 97.5 F-98.1 F 80-100 18-20 93-132/36-58 100-100 Constitutional: Yes: Well Nourished, No Distress Eyes: No: Sclera Icterus Respiratory: Yes: CTA Bilaterally, Rales (both bases). No: Accessory Muscle Use Gastrointestinal: Yes: Normal Bowel Sounds. No: Distention, Hepatomegaly, Palpable Mass, Tenderness Cardiovascular: Yes: Regular Rate and Rhythm JVD: Yes Heart Sounds: Yes: S1, S2. No: Gallop Murmur: No: Systolic Murmur, Diastolic Murmur Extremities: No: Cold, Cyanosis Edema: No Integumentary: No: Jaundice diaphoresis Neurological: Yes: awake, appropriate Psychiatric: No: Agitated CBC, BMP 06/03/18 05:50 06/03/18 05:50 Assessment/Plan ECG: sinus, V-paced CXR mild congestion Echo 04/2018: mod reduced EF (35-40%). apical-septal severe HK, septal motion c/ w conduction abnormality. nl RV. mod LAE. ? prior MV repair/annuloplasty ring, + thickened leaflets: severe mitral stenosis (tech mean gradient 12 mmHg), mild MR. mild TR. RVSP 30-40. 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
[2018-06-04] MEDS ORDERED: PT OWN MED DRAWER 7, Y5N ONE (13:20)
[2018-06-04] MEDS: SEVELAMER CARBONATE 800 MG TAB (FP) PO SCH ×3 (13:22→18:06)
[2018-06-04] MEDS: PANTOPRAZOLE 40 MG TABLET (FP) PO SCH (13:24)
[2018-06-04] MEDS: RANOLAZINE E.R. 500 MG TABLET (FP) PO SCH ×2 (13:24→21:08)
[2018-06-04] MEDS: ISOSORBIDE MONONITRATE 30 MG TAB.SR.24H (FP) PO SCH (13:25)
[2018-06-04] MEDS: CARVEDILOL 6.25 MG TABLET (FP) PO SCH ×2 (13:25→21:08)
[2018-06-04] MEDS: VITAMIN B COMPLEX W/C COMBO TABLET (FP) PO SCH (13:25)
[2018-06-04] MEDS: FOLIC ACID 1 MG TABLET (FP) PO SCH (13:25)
[2018-06-04] MEDS: LACTULOSE 20 GM/30 ML UDC (FOR ORAL USE ONLY) PO SCH (13:26)
--- NOTE | 2018-06-04 15:27 | PN ---
Progress Note, Physician History of Present Illness: Pt seen and examined at bedside. He appears comfortable. - Current Medication List Current Medications: Active Medications Albuterol/Ipratropium (Duoneb -) 1 amp NEB RQID [facility] Last Admin: 06/04/18 12:10 Dose: Not Given Amlodipine Besylate (Norvasc -) 5 mg PO HS [facility] Last Admin: 06/03/18 21:49 Dose: 5 mg Atorvastatin Calcium (Lipitor -) 10 mg PO HS [facility] Last Admin: 06/03/18 21:49 Dose: 10 mg Budesonide (Pulmicort 0.5 Mg Nebulizer -) 1 amp NEB RBID [facility] Last Admin: 06/04/18 07:36 Dose: 1 amp Carvedilol (Coreg -) 6.25 mg PO BID [facility] Last Admin: 06/04/18 13:25 Dose: 6.25 mg Folic Acid (Folic Acid -) 1 mg PO DAILY [facility] Last Admin: 06/04/18 13:25 Dose: 1 mg Insulin Aspart (Novolog Vial Sliding Scale -) 1 vial SQ [facility]; Protocol Last Admin: 06/04/18 13:31 Dose: 2 units Insulin Detemir (Levemir Vial) [address] [facility] Last Admin: 06/03/18 21:54 Dose: Not Given Isosorbide Mononitrate (Imdur -) 30 mg PO DAILY [facility] Last Admin: 06/04/18 13:25 Dose: 30 mg Lactulose (Cephulac (Oral Use)) 30 gm PO DAILY [facility] Last Admin: 06/04/18 13:26 Dose: 30 gm Multivitamins (Total B With C -) 1 each PO DAILY [facility] Last Admin: 06/04/18 13:25 Dose: 1 each Pantoprazole Sodium (Protonix -) 40 mg PO DAILY [facility] Last Admin: 06/04/18 13:24 Dose: 40 mg Ranolazine (Ranexa -) 500 mg PO BID [facility] Last Admin: 06/04/18 13:24 Dose: 500 mg Sevelamer Carbonate (Renvela -) 800 mg PO TIDCM [facility] Last Admin: 06/04/18 13:23 Dose: 800 mg - Objective Vital Signs: Vital Signs Temperature 97.5 F L 06/04/18 12:38 Pulse Rate 84 06/04/18 12:38 Respiratory Rate 20 06/04/18 12:38 Blood Pressure 112/53 L 06/04/18 12:38 O2 Sat by Pulse Oximetry (%) 100 06/04/18 04:34 Constitutional: Yes: Calm Eyes: Yes: Conjunctiva Clear HENT: Yes: Atraumatic Cardiovascular: Yes: S1, S2 Respiratory: Yes: CTA Bilaterally Gastrointestinal: Yes: Soft Genitourinary: Yes: Incontinence Musculoskeletal: Yes: Muscle Weakness Edema: No Integumentary: Yes: WNL Neurological: Yes: Pre-Existing Deficit Labs: CBC, BMP 06/03/18 05:50 06/03/18 05:50 INR, PTT INR 1.43 (0.83-1.09) H 06/02/18 01:50 Problem List - Problems (1) Chest pain Code(s): R07.9 - CHEST PAIN, UNSPECIFIED (2) ESRD (end stage renal disease) on dialysis Code(s): N18.6 - END STAGE RENAL DISEASE; Z99.2 - DEPENDENCE ON RENAL DIALYSIS Assessment/Plan Current Medications Generic Name Dose Route Start Last Admin Trade Name Freq PRN Reason Stop Dose Admin Albuterol/Ipratropium 1 amp 06/02/18 01:52 06/04/18 12:10 Duoneb - NEB Not Given RQID [facility] Amlodipine Besylate 5 mg 06/02/18 22:00 06/03/18 21:49 Norvasc - PO 5 mg HS [facility] Administration Atorvastatin Calcium 10 mg 06/02/18 22:00 06/03/18 21:49 Lipitor - PO 10 mg HS [facility] Administration Budesonide 1 amp 06/02/18 08:00 06/04/18 07:36 Pulmicort 0.5 Mg Nebulizer - NEB 1 amp RBID [facility] Administration Carvedilol 6.25 mg 06/02/18 10:00 06/04/18 13:25 Coreg - PO 6.25 mg BID [facility] Administration Folic Acid 1 mg 06/02/18 10:00 06/04/18 13:25 Folic Acid - PO 1 mg DAILY [facility] Administration Insulin Aspart 1 vial 06/02/18 07:00 06/04/18 13:31 Novolog Vial Sliding Scale - SQ 2 units ACHS [facility] Administration Protocol Insulin Detemir 10 units 06/02/18 22:00 06/03/18 21:54 Levemir Vial SQ Not Given HS [facility] Isosorbide Mononitrate 30 mg 06/02/18 10:00 06/04/18 13:25 Imdur - PO 30 mg DAILY [facility] Administration Lactulose 30 gm 06/02/18 10:00 06/04/18 13:26 Cephulac (Oral Use) PO 30 gm DAILY [facility] Administration Multivitamins 1 each 06/02/18 10:00 06/04/18 13:25 Total B With C - PO 1 each DAILY [facility] Administration Pantoprazole Sodium 40 mg 06/02/18 10:00 06/04/18 13:24 Protonix - PO 40 mg DAILY [facility] Administration Ranolazine 500 mg 06/02/18 10:00 06/04/18 13:24 Ranexa - PO 500 mg BID [facility] Administration Sevelamer Carbonate 800 mg 06/02/18 08:00 06/04/18 13:23 Renvela - PO 800 mg TIDCM [facility] Administration Impression 1. ESRD 2. chest pain 3. CAD 4. hx of cardiac arrest 5. anemia 6. DM 7. HLD Plan - will arrange for HD in am - cardio input appreciated - monitor bp - pt now denies chest pain - will follow
[2018-06-04] MEDS ORDERED: SODIUM CHLORIDE 250 ML IV PRN (15:31)
--- NOTE | 2018-06-04 15:32 | CONSULT ---
- Consultation REQUESTING PROVIDER: CONSULT REQUEST: We have been asked to surgically evaluate this patient for left foot ulcers and pain. PCP:Francheska Granados HISTORY OF PRESENT ILLNESS: 78yo M with significant history of ESRD (M/W/F; at [facility]) HTN, HLD, DM, CAD with prior cardiac arrest who presented to the ER after experiencing L anterior sharp chest pain during his dialysis session (06/01). Patient also c/o left foot pain. He ambulates with a walker and cannot recall when the pain and ulcerations began. He denies any fever, chest pain, shortness of breath or other complaints at this time. PMHx: Obtained for EMR ESRD (M/W/F; [facility]; 3:30/450ABF/Aranesp/Iron/Heparin) HTN HLD CAD with cardiac stenting, CABG (2013), PPM placement Cardiac arrest 2 months prior DM COPD Mitral Regurgitation PSHx: Obtained from EMR PPM placement CABG (2013) R toe amputation R AVF creation L AVF creation (now nonfunctional) TAVR (2016) Allergies: IodineHome Medications Medication Instructions Recorded Albuterol 2.5/Ipratropium 0.5 1 amp NEB Q6H 05/15/18 [Duoneb -] Amlodipine Besylate 5 mg PO HS 05/15/18 B Complex with Vitamin C 1 each PO DAILY 05/15/18 [B-Complex Plus Vitamin C] Folic Acid 1 mg PO DAILY 05/15/18 Insulin Glargine,Hum.rec.anlog 10 unit SQ HS 05/15/18 [Lantus] Ranolazine [Ranexa] 500 mg PO BID 05/15/18 Simvastatin [Zocor -] 10 mg PO HS 05/15/18 Carvedilol [Coreg -] 6.25 mg PO BID #60 tablet 05/21/18 Isosorbide Mononitrate [Imdur -] 30 mg PO DAILY #60 tab.sr.24h 05/21/18 Lactulose (Oral Use) [Cephulac -] 30 gm PO DAILY #30 udc 05/21/18 Pantoprazole Sodium [Protonix -] 40 mg PO DAILY #30 tablet.ec 05/21/18 Sevelamer Carbonate [Renvela -] 800 mg PO TIDCM #60 tab 05/21/18 Acetaminophen 650 mg PO Q6H PRN 11/06/18 Budesonide [Pulmicort 0.5 mg 0.5 mg NEB BID 06/02/18 Nebulizer -] Darbepoetin Edin [Aranesp] 100 mcg SQ WEEKLY 06/02/18 Vitamin B Complex 1 each PO DAILY 06/02/18 Allergies Allergy/AdvReac Type Severity Reaction Status Date / Time iodine Allergy Hives Verified 05/15/18 13:08 REVIEW OF SYSTEMS: Cannot be obtained as patient cannot recall and problems PHYSICAL EXAM: GENERAL: Awake, alert, NAD HEAD: Normal with no signs of trauma. EYES: sclera anicteric, conjunctiva clear. LUNGS: No auditory wheees, No accessory muscle use on RA LOWER EXTREMITIES: Compartments soft, supple and non-tender with signal on bedside doppler over b/l DP and PT. 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 Stage 2 pressure ulcer @2x2cm over Left lateral malleolus, no evidence of erythema, edema or collection. No peripheral edema. NEUROLOGICAL: Normal speech, gait not observed. PSYCH: Cooperative. Good eye contact. Appropriate mood and affect. SKIN: Warm, dry, normal turgor, Vital Signs Temperature 97.5 F L 06/04/18 12:38 Pulse Rate 84 06/04/18 12:38 Respiratory Rate 20 06/04/18 12:38 Blood Pressure 112/53 L 06/04/18 12:38 O2 Sat by Pulse Oximetry (%) 100 06/04/18 04:34 Lab Results WBC 6.6 K/mm3 (4.0-10.0) 06/03/18 05:50 RBC 3.35 M/mm3 (4.00-5.60) L 06/03/18 05:50 Hgb 9.6 GM/dL (11.7-16.9) L 06/03/18 05:50 Hct 30.7 % (35.4-49) L 06/03/18 05:50 MCV 91.6 fl (80-96) 06/03/18 05:50 MCHC 31.1 g/dl (32.0-35.9) L 06/03/18 05:50 RDW 17.8 % (11.9-15.9) H 06/03/18 05:50 Plt Count 143 K/MM3 (134-434) 06/03/18 05:50 Sodium 136 mmol/L (136-145) 06/03/18 05:50 Potassium 4.3 mmol/L (3.5-5.1) 06/03/18 05:50 Chloride 96 mmol/L (98-107) L 06/03/18 05:50 Carbon Dioxide 26 mmol/L (21-32) 06/03/18 05:50 Anion Gap 13 MMOL/L (8-16) 06/03/18 05:50 BUN 41 mg/dL (7-18) H 06/03/18 05:50 Creatinine 7.3 mg/dL (0.55-1.3) H 06/03/18 05:50 Random Glucose 85 mg/dL (74-106) 06/03/18 05:50 Calcium 8.8 mg/dL (8.5-10.1) 06/03/18 05:50 INR 1.43 (0.83-1.09) H 06/02/18 01:50 Arterial duplex LE: atherosclerosis of left LE with abnormal flow. Problem List - Problems (1) PAD (peripheral artery disease) Assessment/Plan: PAD Left LE with signal on bedside doppler revealing abnormal flow. 1) dry dressing between toes daily. 2) Offload pressure sensitive areas/ frequent repositioning 3) Pain control 4) OOB with Walker as tolerated 5) F/u with Dr Vargas as out patient Evaluation and plan discussed with Dr Vargas Code(s): I73.9 - PERIPHERAL VASCULAR DISEASE, UNSPECIFIED
[2018-06-04] MEDS: ATORVASTATIN CA 10 MG TABLET (FP) PO SCH (21:08)
[2018-06-04] MEDS: amLODIPine BESYLATE 5 MG TABLET (FP) PO SCH (21:08)
[2018-06-04] MEDS: INSULIN (LEVEMIR) 100 UNITS/ML UNITS SQ SCH (21:09)
[2018-06-05 00:12] LABS: HBSAG SCREEN Negative (Negative); HEP A AB, IGM Negative (Negative); HEP B CORE AB, TOT Negative (Negative)
[2018-06-05] MEDS: INSULIN SLIDING SCALE (NOVOLOG) 1 VIAL SQ SCH ×3 (06:04→17:12)
[2018-06-05] MEDS: ALBUTEROL SO4 2.5/IPRATROPIUM 0.5 INH SOL 3 ML VIAL.NEB. NEB SCH ×3 (07:14→15:36)
[2018-06-05] MEDS: BUDESONIDE 0.5 MG/2 ML INH SUSP VIAL NEB SCH (07:14)
--- NOTE | 2018-06-05 10:22 | PN ---
Progress Note (short form) - Note Progress Note: s: no cp, palps, dizziness, lightheadedness, edema Current Medications Generic Name Dose Route Start Last Admin Trade Name Freq PRN Reason Stop Dose Admin Albuterol/Ipratropium 1 amp 06/02/18 01:52 06/05/18 07:14 Duoneb - NEB 1 amp RQID KAVON Administration Amlodipine Besylate 5 mg 06/02/18 22:00 06/04/18 21:08 Norvasc - PO 5 mg HS KAVON Administration Atorvastatin Calcium 10 mg 06/02/18 22:00 06/04/18 21:08 Lipitor - PO 10 mg HS KAVON Administration Budesonide 1 amp 06/02/18 08:00 06/05/18 07:14 Pulmicort 0.5 Mg Nebulizer - NEB 1 amp RBID KAVON Administration Carvedilol 6.25 mg 06/02/18 10:00 06/04/18 21:08 Coreg - PO 6.25 mg BID KAVON Administration Epoetin Edin 4,000 unit 06/05/18 15:31 Epogen - IVPUSH 06/05/18 15:32 ONCE ONE Folic Acid 1 mg 06/02/18 10:00 06/04/18 13:25 Folic Acid - PO 1 mg DAILY KAVON Administration Sodium Chloride 250 mls @ 3,000 mls/hr 06/04/18 15:31 Normal Saline - IV 06/05/18 15:31 PRN PRN Hypotension during Dialysis Insulin Aspart 1 vial 06/02/18 07:00 06/05/18 06:04 Novolog Vial Sliding Scale - SQ Not Given ACHS [facility] Protocol Insulin Detemir 10 units 06/02/18 22:00 06/04/18 21:09 Levemir Vial SQ 10 units HS K[facility]ON Administration Isosorbide Mononitrate 30 mg 06/02/18 10:00 06/04/18 13:25 Imdur - PO 30 mg DAILY [facility]ON Administration Lactulose 30 gm 06/02/18 10:00 06/04/18 13:26 Cephulac (Oral Use) PO 30 gm DAILY [facility]ON Administration Multivitamins 1 each 06/02/18 10:00 06/04/18 13:25 Total B With C - PO 1 each DAILY [facility]ON Administration Pantoprazole Sodium 40 mg 06/02/18 10:00 06/04/18 13:24 Protonix - PO 40 mg DAILY K[facility]ON Administration Ranolazine 500 mg 06/02/18 10:00 06/04/18 21:08 Ranexa - PO 500 mg BID K[facility]ON Administration Sevelamer Carbonate 800 mg 06/02/18 08:00 06/04/18 18:06 Renvela - PO 800 mg TIDCM K[facility]ON Administration Vital Signs: Vital Signs Period Temp Pulse Resp BP Sys/Adams Pulse Ox Last 24 Hr 97.5 F-98.1 F 68-90 16-20 102-121/51-72 99-99 Constitutional: Yes: Well Nourished, No Distress Eyes: No: Sclera Icterus Respiratory: Yes: CTA Bilaterally, Rales (both bases). No: Accessory Muscle Use Gastrointestinal: Yes: Normal Bowel Sounds. No: Distention, Hepatomegaly, Palpable Mass, Tenderness Cardiovascular: Yes: Regular Rate and Rhythm JVD: Yes Heart Sounds: Yes: S1, S2. No: Gallop Murmur: No: Systolic Murmur, Diastolic Murmur Extremities: No: Cold, Cyanosis Edema: No Integumentary: No: Jaundice diaphoresis Neurological: Yes: awake, appropriate Psychiatric: No: Agitated CBC, BMP 06/03/18 05:50 06/03/18 05:50 Assessment/Plan ECG: sinus, V-paced CXR mild congestion Echo 04/2018: mod reduced EF (35-40%). apical-septal severe HK, septal motion c/ w conduction abnormality. nl RV. mod LAE. ? prior MV repair/annuloplasty ring, + thickened leaflets: severe mitral stenosis (tech mean gradient 12 mmHg), mild MR. mild TR. RVSP 30-40. CT head x 2 no acute pathology tele: sinus, v-paced, PVCs mibi 05/2018: no ischemia Chest pain, CAD, h/o CABG - trop neg x 3 - EKG STAFF EDITOR - history less likely c/w ACS, possible MSK - nuclear stress test shows no ischemia - continue ranexa, plavix, aspirin, imdur chronic syst CHF, s/p TAVR (2016), severe mitral stenosis: - BNP [id number], in setting of ESRD, no prior - mild congestion on CXR -EF 35-40% -volume mgmt with HD -cont home LV dysfunction med regimen (tangela machado at [facility]) -on DAPT, however > 6 mo post TAVR and no recent stents--continue same if tolerating, defer to outpt forms analyst HTN: -currently stable -cont home meds ESRD on HD: -per renal anemia: -hgb stable - manage per primary cardiac jacobson stable for dc
--- NOTE | 2018-06-05 10:37 | DS ---
Physical Examination Vital Signs: Vital Signs Temperature 98.1 F 06/05/18 06:00 Pulse Rate 68 06/05/18 06:00 Respiratory Rate 18 06/05/18 06:00 Blood Pressure 102/51 L 06/05/18 06:00 O2 Sat by Pulse Oximetry (%) 99 06/05/18 05:00 Findings/Remarks: pt seen/ examined chart reviewed feels ok comfortable denies cp Constitutional: Yes: No Distress, Calm Eyes: Yes: Conjunctiva Clear Neck: Yes: Supple Cardiovascular: Yes: Regular Rate and Rhythm Respiratory: Yes: Diminished Gastrointestinal: Yes: Soft Edema: No Wound/Incision: Yes: Dressing Dry and Intact Labs: CBC, BMP 06/03/18 05:50 06/03/18 05:50 Discharge Summary Reason For Visit: CHEST PAIN Current Active Problems Acute on chronic systolic CHF (congestive heart failure) (Acute) Acute systolic CHF (congestive heart failure) (Acute) Chest pain (Acute) PAD (peripheral artery disease) (Acute) Hospital Course: This is a 78 year old male with a past medical history significant for HTN, HLD , CAD, recent cardiac arrest, DM, ESRD who presented to the ED with chest pain that began during dialysis from dialysis Admitted to tele cardiology followed stress test -ve Pt not on asa/plavix due to recent gi bleed Family dont want colonoscopy stable for d/c to intermediate after dialysis discussed with renal also meds reviewed/ reconcilled Discussed with nursing staff also Condition: Fair - Instructions Disposition: HALF-WAY FACILITY - Home Medications Comprehensive Discharge Medication List: Ambulatory Orders Albuterol 2.5/Ipratropium 0.5 [Duoneb -] 1 amp NEB Q6H 05/15/18 Amlodipine Besylate 5 mg PO HS 05/15/18 B Complex with Vitamin C [B-Complex Plus Vitamin C] 1 each PO DAILY 05/15/18 Folic Acid 1 mg PO DAILY 05/15/18 Insulin Glargine,Hum.rec.anlog [Lantus] 10 unit SQ HS 05/15/18 Ranolazine [Ranexa] 500 mg PO BID 05/15/18 Simvastatin [Zocor -] 10 mg PO HS 05/15/18 Carvedilol [Coreg -] 6.25 mg PO BID #60 tablet 05/21/18 Isosorbide Mononitrate [Imdur -] 30 mg PO DAILY #60 tab.sr.24h 05/21/18 Lactulose (Oral Use) [Cephulac -] 30 gm PO DAILY #30 udc 05/21/18 Pantoprazole Sodium [Protonix -] 40 mg PO DAILY #30 tablet.ec 05/21/18 Sevelamer Carbonate [Renvela -] 800 mg PO TIDCM #60 tab 05/21/18 Acetaminophen 650 mg PO Q6H PRN 06/02/18 Budesonide [Pulmicort 0.5 mg Nebulizer -] 0.5 mg NEB BID 06/02/18 Darbepoetin Edin [Aranesp -] 100 mcg SQ WEEKLY 06/02/18 Vitamin B Complex 1 each PO DAILY 06/02/18
[2018-06-05] MEDS ORDERED: EPOETIN ALFA 2,000 UNIT/1 ML VIAL IVPUSH ONE (12:00)
[2018-06-05 12:03] LABS: HEMATOCRIT 29.7 % (35.4-49); HEMOGLOBIN 9.6 GM/dL (11.7-16.9); MCH 29.4 pg (25.7-33.7); MCHC 32.3 g/dl (32.0-35.9); MEAN CELL VOLUME 91.2 fl (80-96); MEAN PLT VOLUME 9.8 fl (7.5-11.1); PLATELET COUNT 125 K/MM3 (134-434); RBC 3.26 M/mm3 (4.00-5.60); RDW 17.9 % (11.9-15.9)
[2018-06-05 12:22] LABS: ANION GAP 10 MMOL/L (8-16); BLOOD UREA NITROGEN 36 mg/dL (7-18); CALCIUM 8.4 mg/dL (8.5-10.1); CHLORIDE 99 mmol/L (98-107); CO2 29 mmol/L (21-32); CREATININE 6.7 mg/dL (0.55-1.3); GLUCOSE,RANDOM 174 mg/dL (74-106); POTASSIUM 4.4 mmol/L (3.5-5.1); SODIUM 137 mmol/L (136-145)
[2018-06-05] MEDS ORDERED: PT OWN MED DRAWER 7, Y5N ONE ×2 (13:11→15:51)
[2018-06-05 14:22] VITALS: TEMP 97.5
--- NOTE | 2018-06-05 14:41 | PN ---
Progress Note, Physician History of Present Illness: Pt seen and examined at bedside. He is awake and appears comfortable. He is getting HD. - Current Medication List Current Medications: Active Medications Albuterol/Ipratropium (Duoneb -) 1 amp NEB RQID [facility] Last Admin: 06/05/18 11:02 Dose: 1 amp Amlodipine Besylate (Norvasc -) 5 mg PO HS [facility] Last Admin: 06/04/18 21:08 Dose: 5 mg Atorvastatin Calcium (Lipitor -) 10 mg PO HS [facility] Last Admin: 06/04/18 21:08 Dose: 10 mg Budesonide (Pulmicort 0.5 Mg Nebulizer -) 1 amp NEB RBID [facility] Last Admin: 06/05/18 07:14 Dose: 1 amp Carvedilol (Coreg -) 6.25 mg PO BID [facility] Last Admin: 06/04/18 21:08 Dose: 6.25 mg Folic Acid (Folic Acid -) 1 mg PO DAILY [facility] Last Admin: 06/04/18 13:25 Dose: 1 mg Sodium Chloride (Normal Saline -) 250 mls @ 3,000 mls/hr IV PRN PRN PRN Reason: Hypotension during Dialysis Stop: 06/05/18 15:31 Insulin Aspart (Novolog Vial Sliding Scale -) 1 vial SQ [facility]; Protocol Last Admin: 06/05/18 12:13 Dose: 2 units Insulin Detemir (Levemir Vial) 10 units SQ [facility] Last Admin: 06/04/18 21:09 Dose: 10 units Isosorbide Mononitrate (Imdur -) 30 mg PO DAILY [facility] Last Admin: 06/04/18 13:25 Dose: 30 mg Lactulose (Cephulac (Oral Use)) 30 gm PO DAILY [facility] Last Admin: 06/04/18 13:26 Dose: 30 gm Multivitamins (Total B With C -) 1 each PO DAILY [facility] Last Admin: 06/04/18 13:25 Dose: 1 each Pantoprazole Sodium (Protonix -) 40 mg PO DAILY [facility] Last Admin: 06/04/18 13:24 Dose: 40 mg Ranolazine (Ranexa -) 500 mg PO BID [facility] Last Admin: 06/04/18 21:08 Dose: 500 mg Sevelamer Carbonate (Renvela -) 800 mg PO TIDCM [facility] Last Admin: 06/04/18 18:06 Dose: 800 mg - Objective Vital Signs: Vital Signs Temperature 97.5 F L 06/05/18 13:20 Pulse Rate 82 06/05/18 13:55 Respiratory Rate 18 06/05/18 13:55 Blood Pressure 94/48 L 06/05/18 13:55 O2 Sat by Pulse Oximetry (%) 98 06/05/18 10:00 Constitutional: Yes: Calm Eyes: Yes: Conjunctiva Clear Cardiovascular: Yes: S1, S2 Respiratory: Yes: CTA Bilaterally Gastrointestinal: Yes: Soft Genitourinary: Yes: Incontinence Musculoskeletal: Yes: Muscle Weakness Edema: No Neurological: Yes: Confusion, Pre-Existing Deficit Labs: CBC, BMP 06/05/18 11:00 06/05/18 11:00 INR, PTT INR 1.43 (0.83-1.09) H 06/02/18 01:50 Problem List - Problems (1) Chest pain Code(s): R07.9 - CHEST PAIN, UNSPECIFIED (2) ESRD (end stage renal disease) on dialysis Code(s): N18.6 - END STAGE RENAL DISEASE; Z99.2 - DEPENDENCE ON RENAL DIALYSIS Assessment/Plan Current Medications Generic Name Dose Route Start Last Admin Trade Name Freq PRN Reason Stop Dose Admin Albuterol/Ipratropium 1 amp 06/02/18 01:52 06/05/18 11:02 Duoneb - NEB 1 amp RQID KAVON Administration Amlodipine Besylate 5 mg 06/02/18 22:00 06/04/18 21:08 Norvasc - PO 5 mg HS [facility] Administration Atorvastatin Calcium 10 mg 06/02/18 22:00 06/04/18 21:08 Lipitor - PO 10 mg HS [facility] Administration Budesonide 1 amp 06/02/18 08:00 06/05/18 07:14 Pulmicort 0.5 Mg Nebulizer - NEB 1 amp RBID [facility]ON Administration Carvedilol 6.25 mg 06/02/18 10:00 06/04/18 21:08 Coreg - PO 6.25 mg BID [facility] Administration Folic Acid 1 mg 06/02/18 10:00 06/04/18 13:25 Folic Acid - PO 1 mg DAILY [facility] Administration Sodium Chloride 250 mls @ 3,000 mls/hr 06/04/18 15:31 Normal Saline - IV 06/05/18 15:31 PRN PRN Hypotension during Dialysis Insulin Aspart 1 vial 06/02/18 07:00 06/05/18 12:13 Novolog Vial Sliding Scale - SQ 2 units ACHS [facility] Administration Protocol Insulin Detemir 10 units 06/02/18 22:00 06/04/18 21:09 Levemir Vial SQ 10 units HS [facility]ON Administration Isosorbide Mononitrate 30 mg 06/02/18 10:00 06/04/18 13:25 Imdur - PO 30 mg DAILY [facility] Administration Lactulose 30 gm 06/02/18 10:00 06/04/18 13:26 Cephulac (Oral Use) PO 30 gm DAILY [facility] Administration Multivitamins 1 each 06/02/18 10:00 06/04/18 13:25 Total B With C - PO 1 each DAILY [facility] Administration Pantoprazole Sodium 40 mg 06/02/18 10:00 06/04/18 13:24 Protonix - PO 40 mg DAILY [facility]ON Administration Ranolazine 500 mg 06/02/18 10:00 06/04/18 21:08 Ranexa - PO 500 mg BID K[facility]ON Administration Sevelamer Carbonate 800 mg 06/02/18 08:00 06/04/18 18:06 Renvela - PO 800 mg TIDCM K[facility]ON Administration Impression 1. ESRD 2. chest pain 3. CAD 4. hx of cardiac arrest 5. anemia 6. DM 7. HLD Plan - pt getting HD today - mental status is stable - discussed with cardio, stress negative - outpt cardio follow up - will follow
[2018-06-05 15:53] LABS: CREATININE 1.9 mg/dL (0.55-1.3)
[2018-06-05] MEDS: VITAMIN B COMPLEX W/C COMBO TABLET (FP) PO SCH (15:53)
[2018-06-05] MEDS: ISOSORBIDE MONONITRATE 30 MG TAB.SR.24H (FP) PO SCH (15:53)
[2018-06-05] MEDS: FOLIC ACID 1 MG TABLET (FP) PO SCH (15:53)
[2018-06-05] MEDS: SEVELAMER CARBONATE 800 MG TAB (FP) PO SCH ×2 (15:53→15:56)
[2018-06-05] MEDS: LACTULOSE 20 GM/30 ML UDC (FOR ORAL USE ONLY) PO SCH (15:54)
[2018-06-05] MEDS: PANTOPRAZOLE 40 MG TABLET (FP) PO SCH (15:54)
[2018-06-05] MEDS: RANOLAZINE E.R. 500 MG TABLET (FP) PO SCH (15:56)
[2018-06-05] MEDS: CARVEDILOL 6.25 MG TABLET (FP) PO SCH (15:56)
[2018-06-05 16:04] VITALS: BP 114/68; PULSE 88
== END 2018-06-05 18:08 ==
LOC: JER 18:40 → JERBED 23:41 → J4S 06-02 15:30
PROVIDERS: ADMIT Internal Medicine; ATTEND Internal Medicine
PROC: 3E033GC Introduction of Other Therapeutic Substance into Peripheral Vein, Percutaneous Approach (ICD-10-PCS; principal; 2018-06-01)
PROC: 3E013VG Introduction of Insulin into Subcutaneous Tissue, Percutaneous Approach (ICD-10-PCS; 2018-06-01)
PROC: 3E0F7GC Introduction of Other Therapeutic Substance into Respiratory Tract, Via Natural or Artificial Opening (ICD-10-PCS; 2018-06-01)
DX: R07.9 Chest pain, unspecified (principal); E11.22 Type 2 diabetes mellitus with diabetic chronic kidney disease; I12.0 Hypertensive chronic kidney disease with stage 5 chronic kidney disease or end stage renal disease; N18.6 End stage renal disease; Z99.2 Dependence on renal dialysis; J44.9 Chronic obstructive pulmonary disease, unspecified; I11.0 Hypertensive heart disease with heart failure; E78.5 Hyperlipidemia, unspecified; I25.10 Atherosclerotic heart disease of native coronary artery without angina pectoris; I50.23 Acute on chronic systolic (congestive) heart failure; I34.0 Nonrheumatic mitral (valve) insufficiency; I05.0 Rheumatic mitral stenosis; D64.9 Anemia, unspecified; R41.82 Altered mental status, unspecified; I73.9 Peripheral vascular disease, unspecified; Z89.421 Acquired absence of other right toe(s); Z95.2 Presence of prosthetic heart valve; Z86.74 Personal history of sudden cardiac arrest; Z95.0 Presence of cardiac pacemaker; Z95.1 Presence of aortocoronary bypass graft; Z95.5 Presence of coronary angioplasty implant and graft
CPT/HCPCS: 36415; 71045-TC-FY; 78452-TC; 80048; 80053; 82272; 82550; 82565; 82962; 83735; 83880; 84100; 84484; 84520; 85025; 85027; 85610; 85730; 86704; 86706; 86708; 86803; 87340; 93005; 93010; 93017; 93925-TC; 94640; 96372; 96374; 96375; 96376; 99285-25; A9502; G0378; J0885; J2785